=== PATIENT | male | born 1960 | race Caucasian/White ===

== ENCOUNTER 2020-05-22 11:44 | Emergency (ER) | payer MEDICAID, MEDICARE, OTHER ==
[~2020-05-22] VITALS: Ht 175.3 cm; Wt 81.8 kg
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
[2020-05-22 12:24] LABS: BASOPHILS % (AUTO) 1 % (0-10); EOSINOPHILS % (AUTO) 3 % (0-10); HEMATOCRIT 39 % (40-54); HEMOGLOBIN 13.6 G/DL (13.3-17.7); LYMPHOCYTES % (AUTO) 34 % (12-44); MEAN CORPUSCULAR HEMOGLOBIN 31 PG (25-34); MEAN CORPUSCULAR HGB CONC 35 G/DL (32-36); MEAN CORPUSCULAR VOLUME 89 FL (80-99); MEAN PLATELET VOLUME 9.6 FL (7.4-10.4); MONOCYTES % (AUTO) 8 % (0-12); NEUTROPHILS # (AUTO) 3.7 X 10^3 (1.8-7.8); NEUTROPHILS % (AUTO) 53 % (42-75); PLATELET COUNT 200 10^3/uL (130-400)
[2020-05-22 12:25] LABS: BASOPHILS # (AUTO) 0.1 10^3/uL (0.0-0.1); EOSINOPHILS # (AUTO) 0.2 10^3/uL (0.0-0.3); LYMPHOCYTES # (AUTO) 2.4 X 10^3 (1.0-4.0); MONOCYTES # (AUTO) 0.5 X 10^3 (0.0-1.0)
[2020-05-22] MEDS ORDERED: morphine INJ 10 MG/ML 1ML (SYR OR VIAL) IVP STA (12:26)
[2020-05-22] MEDS ORDERED: CATHETER FLUSH 10 ML SYR IV PRN (12:30)
[2020-05-22] MEDS ORDERED: NS 100 ML (IVPB) BAG IV ONE (12:30)
[2020-05-22] MEDS ORDERED: HOLD METFORMIN - RECEIVED CONTRAST 20 ML VIAL IV SCH (12:30)
[2020-05-22] MEDS ORDERED: IOHEXOL 350 MG/ML 100 ML (OMNIPAQUE 350) VIAL IV ONE (12:30)
[2020-05-22] MEDS ORDERED: NS IV 1000 ML 1,000 ML IV SCH (12:30)
[2020-05-22 12:43] LABS: ALANINE AMINOTRANSFERASE 63 U/L (0-55); ALKALINE PHOSPHATASE 68 U/L (40-136); AMYLASE 28 U/L (25-125); BILIRUBIN,TOTAL 0.4 MG/DL (0.1-1.0); BUN/CREATININE RATIO 8; CALCIUM 9.3 MG/DL (8.5-10.1); CARBON DIOXIDE 23 MMOL/L (21-32); CHLORIDE 102 MMOL/L (98-107); CREATININE SERUM 0.77 MG/DL (0.60-1.30); GFR ESTIMATED > 60; GLUCOSE 102 MG/DL (70-105); LIPASE 26 U/L (8-78); POTASSIUM 3.9 MMOL/L (3.6-5.0); SODIUM 137 MMOL/L (135-145); TOTAL PROTEIN 7.1 GM/DL (6.4-8.2)
--- NOTE | 2020-05-22 12:45 | NUR ---
Morphine 4 mg SIVP given for c/o head pain "5"/10.
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
--- NOTE | 2020-05-22 14:00 | NUR ---
Pt resting with eyes closed since Morphine.
--- NOTE | 2020-05-22 14:15 | NUR ---
Entered room to note patient resting with eyes closed. Pt is relaxed and appears in no distress.
--- NOTE | 2020-05-22 14:17 | NUR ---
C-collar removed after Dr López in to re-assess pt post resulting of CT studies. Pt was sat up on side of bed. c/o stiff and soreness generalized. Encouraged pt to void. Rec'd 1 L IV fluids earlier.
--- NOTE | 2020-05-22 14:30 | NUR ---
Pt voided 450 ml concentrated yellow clear urine.
--- NOTE | 2020-05-22 14:33 | NUR ---
Pt is on numerous phone calls now.
[2020-05-22] MEDS ORDERED: ACHD5005 PO (14:37)
[2020-05-22] MEDS ORDERED: CYCL10TA9 PO (14:37)
[2020-05-22 14:40] LABS: BILIRUBIN,URINE NEGATIVE (NEGATIVE); CLARITY,URINE CLEAR; COLOR,URINE YELLOW; GLUCOSE, URINE (UA) NEGATIVE (NEGATIVE); KETONES,URINE NEGATIVE (NEGATIVE); LEUKOCYTE ESTERASE ,URINE NEGATIVE (NEGATIVE); NITRITE,URINE NEGATIVE (NEGATIVE); PH,URINE 6.5 (5-9); PROTEIN,URINE NEGATIVE (NEGATIVE); SQUAMOUS EPITHELIAL CELL,UR 0-2 /HPF
[2020-05-22 15:13] VITALS: BP 141/82
--- NOTE | 2020-05-22 15:13 | NUR ---
Pt discharged at this time after review of home instructions and prescriptions verbalized as understood. Pt is comfortable with discharging to get his prescriptions filled and take as directed. Pt askked if Dr wanted him to wear a C-collar still. Pt advised he was cleared from CT scan. Pt states, "I thought I meet need to wear one for a few more days." Pt was shown the rigidity of the C-collar removed. Pt states, "Nah, that is very uncomfortable to wear." Pt states if he needed to wear a softer C-collar for awhile he would like one. Pt is not issued a soft C-collar.
--- NOTE | 2020-05-22 16:35 | NUR ---
[facility] Pharmacist on duty called to speak with ER staff to communicate the medications this patient gets prescribed and current fills on them. Pt has Tizanidine, Ambien, Xanax, and also Percocet 10/[address] López therefore notified RN to have pharmacist cancel his written scripts.
[2020-05-22] MEDS ORDERED: OXYC-556 (16:37)
[2020-05-22] MEDS ORDERED: TIZA2TAB7 (16:37)
[2020-05-22] MEDS ORDERED: ZOLPIDEM (16:37)
[2020-05-22] MEDS ORDERED: DICL100G31 (16:37)
[2020-05-22] MEDS ORDERED: ALPR1TAB7 (16:37)
[2020-05-22] MEDS ORDERED: SIMV40TA25 (16:37)
== END 2020-05-22 15:13 | disposition home or self-care (01) ==
LOC: ER FS 11:45
DX: S16.1XXA Strain of muscle, fascia and tendon at neck level, initial encounter (principal); S39.012A Strain of muscle, fascia and tendon of lower back, initial encounter; R10.13 Epigastric pain; R40.2410 Glasgow coma scale score 13-15, unspecified time; F17.210 Nicotine dependence, cigarettes, uncomplicated; Z95.5 Presence of coronary angioplasty implant and graft; V89.2XXA Person injured in unspecified motor-vehicle accident, traffic, initial encounter
CPT/HCPCS: 36415; 70450; 71260; 72125; 74177; 80053; 81000; 82150; 83690; 85025

== ENCOUNTER 2020-09-14 17:42 | Inpatient (IN) | payer MEDICARE, MEDICAID ==
[~2020-09-14] VITALS: Ht 172.7 cm; Wt 80.2 kg
[~2020-09-14 17:42] MED LIST: ACHD5005 PO; ALPR1TAB7 PO; CYCL10TA9 PO; DICL100G31; NITRO DRIP 25000 MCG/D5W 250 ML IV ONE; OXYC-556; SIMV40TA25 PO; TIZA-169; ZOLPIDEM; morphine INJ 10 MG/ML 1ML (SYR OR VIAL) ONE
[2020-09-14] MEDS ORDERED: CLOPIDOGREL 300 MG (PLAVIX) TABLET PO ONE ×3 (17:43→18:58)
[2020-09-14] MEDS: NITRO DRIP 25000 MCG/D5W 250 ML IV SCH (17:49)
[2020-09-14] MEDS ORDERED: morphine INJ 10 MG/ML 1ML (SYR OR VIAL) IVP STA (17:50)
[2020-09-14] MEDS ORDERED: fentaNYL INJECTION 100 MCG/2 ML AMP ONE ×3 (17:55→21:58)
[2020-09-14] MEDS ORDERED: NS IV 1000 ML 1,000 ML IV SCH (18:00)
[2020-09-14] MEDS ORDERED: fentaNYL INJECTION 100 MCG/2 ML AMP IVP ONE ×2 (18:00→22:15)
[2020-09-14] MEDS ORDERED: LIDOCAINE 1% INJ 20 ML 20 ML VIAL ONE (18:02)
[2020-09-14] MEDS ORDERED: NITRO DRIP 25000 MCG/D5W 250 ML IV ONE (18:02)
[2020-09-14] MEDS ORDERED: NS IV 1000 ML 1,000 ML ONE (18:02)
[2020-09-14] MEDS ORDERED: HEParin 1000 UNIT/ML (10ML VIAL) FOR BOLUS ONE (18:02)
[2020-09-14] MEDS ORDERED: MIDAZOLAM 5 MG/5 ML (VERSED) VIAL ONE (18:02)
--- NOTE | 2020-09-14 18:02 | ED Chest Pain ---
General Chief Complaint: Chest Pain Stated Complaint: STEMI Nursing Triage Note: ARRIVED VIA EMS FROM MIDNIGHT. CHEST PAIN STARTING LAST NIGHT THAT WENT AWAY AND CAME BACK. EMS CALLED FAMILY THERAPIST FOR A STEMI. PT HAS HAD X13 STENTS. X3 NITOR AND 324MG ASA GIVEN FAMILY THERAPIST. Nursing Sepsis Screen: No Definite Risk Source: patient Exam Limitations: no limitations History of Present Illness Date Seen by Provider: Sep 14, 2020 Time Seen by Provider: 17:59 Initial Comments To ER by EMS from [place] with reports of chest pain that went away and came back. It started yesterday mildly but went away. Came back about an hour ago. History of 13 stents follows with a biology specialist in [place]. He had one nitroglycerin at home and 3 sublingual nitroglycerin in route to the hospital. Aspirin was given as well. The nitroglycerin did not help with his pain. Timing/Duration: changing over time Severity/Quality: moderate Location: central Radiation: no radiation Prior CP/Workup: no prior chest pain ASA po FAMILY THERAPIST: No NTG SL FAMILY THERAPIST: No Allergies and Home Medications Allergies Coded Allergies: No Known Drug Allergies (Unverified , 05/22/20) Home Medications Cyclobenzaprine HCl 10 Mg Tablet, 10 MG PO Q4H PRN for SPASMS Prescribed by: DONAL MEDEL on 05/22/20 1437 Hydrocodone/Acetaminophen 1 Each Tablet, 1 EACH PO Q4H Prescribed by: DONAL MEDEL on 05/22/20 1437 Patient Home Medication List Home Medication List Reviewed: Yes Review of Systems Review of Systems Constitutional: see HPI; No chills EENTM: No Symptoms Reported Cardiovascular: See HPI, Chest Pain Genitourinary: No Symptoms Reported Musculoskeletal: no symptoms reported Skin: no symptoms reported Psychiatric/Neurological: No Symptoms Reported Endocrine: No Symptoms Reported Past Jcikqzi-Vjoads-Tycvnl Hx Patient Social History Type Used: Cigarettes 2nd Hand Smoke Exposure: Yes Recent Infectious Disease Expo: No Past Medical History Surgeries: Yes Coronary Stent Cardiac: Yes (X13 STENTS) Genitourinary: No Gastrointestinal: No Endocrine: No HEENT: No Cancer: No Psychosocial: No Physical Exam Vital Signs Vital Signs - First Documented 09/14/20 09/14/20 17:42 17:56 Temp 37.0 Pulse 104 Resp 16 B/P (MAP) 102/85 (91) Pulse Ox 95 O2 Delivery Room Air O2 Flow Rate 2.00 Capillary Refill : Less Than 3 Seconds Height, Weight, BMI Height: '" Weight: lbs. oz. kg; 23.00 BMI Method: General Appearance: No Apparent Distress, Chronically ill, Other (Moaning, states he has pain. Significant ST elevation in lead II, III, aVF with reciprocal depression in aVL V2 V3. Started on nitroglycerin drip at 5 mcg/min, given 4 mg of morphine. This did not help with his pain so he was given 50 mcg of fentanyl as it was thought to have less effect on his blood pressure. 1 L of IV fluids started. He was given 300 mg of Plavix p.o.) Neck: Full Range of Motion, Normal Inspection Respiratory: No Accessory Muscle Use, No Respiratory Distress Cardiovascular: Regular Rate, Rhythm, Normal Peripheral Pulses Gastrointestinal: Normal Bowel Sounds, Non Tender, Soft Extremity: Normal Capillary Refill, Normal Inspection Neurologic/Psychiatric: Alert, Oriented x3 Skin: Normal Color, Warm/Dry Progress/Results/Core Measures Results/Orders Lab Results Laboratory Tests Test 09/14/20 17:50 09/14/20 17:55 Range/Units My Orders Orders - LIVIA THACKER APRN Chest 1 View, Ap/Pa Only (09/14/20 17:50) Cbc With Automated Diff (09/14/20 17:52) Magnesium (09/14/20 17:52) Ekg Tracing (09/14/20 17:52) Comprehensive Metabolic Panel (09/14/20 17:52) Myoglobin Serum (09/14/20 17:52) Protime With Inr (09/14/20 17:52) Partial Thromboplastin Time (09/14/20 17:52) O2 (09/14/20 17:52) Monitor-Rhythm Ecg Trace Only (09/14/20 17:52) Lipid Panel (09/15/20 06:00) Ed Iv/Invasive Line Start (09/14/20 17:52) BNP (09/14/20 17:52) Troponin I (09/14/20 17:52) Covid 19 Inhouse Test (09/14/20 17:55) Fentanyl Injection (Sublimaze Injection (09/14/20 18:00) Medications Given in ED Current Medications Medications Dose Ordered Sig/Dereje Route Start Time Stop Time Status Last Admin Dose Admin Clopidogrel Bisulfate 300 mg ONCE ONCE PO 09/14/20 18:00 09/14/20 18:01 09/14/20 17:49 300 MG Vital Signs/I&O 09/14/20 09/14/20 17:42 17:56 Temp 37.0 Pulse 104 Resp 16 B/P (MAP) 102/85 (91) Pulse Ox 95 O2 Delivery Room Air Nasal Cannula O2 Flow Rate 2.00 Blood Pressure Mean: 91 Departure Communication (Admissions) Time/Spoke to Admitting Phy: 18:[address] De La Torre of the patient's arrival prior to the patient actually gett ing here as EMS had called. He advised to call in the [employer] team. Impression Primary Impression: STEMI (ST elevation myocardial infarction) Qualified Codes: I21.3 - ST elevation (STEMI) myocardial infarction of unspecified site Disposition: ADMITTED INPATIENT Condition: Stable Admissions Decision to Admit Reason: Admit from ER (General) Decision to Admit/Date: Sep 14, 2020 Time/Decision to Admit Time: 18:02 Departure-Patient Inst. Referrals: NO,LOCAL PHYSICIAN (PCP/Family) Primary Care Physician LIVIA THACKER APRN Sep 14, 2020 18:02
[2020-09-14] MEDS ORDERED: HEParin (CATH LAB) 2,000 ML IV ONE (18:03)
[2020-09-14] MEDS ORDERED: EPTIFIBATIDE BOLUS 20 ML IV ONE (18:04)
--- NOTE | 2020-09-14 18:05 | NUR ---
TALKED WITH DAUGHTER CHEL ON THE PHONE. HELD THE PHONE SO THE PT COULD TALK TO HIS DAUGHTER.
[2020-09-14 18:07] LABS: BASOPHILS # (AUTO) 0.1 10^3/uL (0.0-0.1); BASOPHILS % (AUTO) 1 % (0-10); EOSINOPHILS # (AUTO) 0.3 10^3/uL (0.0-0.3); EOSINOPHILS % (AUTO) 3 % (0-10); HEMATOCRIT 40 % (40-54); HEMOGLOBIN 13.7 g/dL (13.3-17.7); LYMPHOCYTES # (AUTO) 2.9 10^3/uL (1.0-4.0); LYMPHOCYTES % (AUTO) 37 % (12-44); MEAN CORPUSCULAR HEMOGLOBIN 30 pg (25-34); MEAN CORPUSCULAR HGB CONC 34 g/dL (32-36); MEAN CORPUSCULAR VOLUME 89 fL (80-99); MEAN PLATELET VOLUME 9.3 fL (9.0-12.2); MONOCYTES # (AUTO) 0.7 10^3/uL (0.0-1.0); MONOCYTES % (AUTO) 9 % (0-12); NEUTROPHILS # (AUTO) 3.9 10^3/uL (1.8-7.8); NEUTROPHILS % (AUTO) 50 % (42-75); PLATELET COUNT 205 10^3/uL (130-400); WHITE BLOOD COUNT 7.8 10^3/uL (4.3-11.0)
--- NOTE | 2020-09-14 18:07 | Diagnostic Imaging Report ---
INDICATION: Chest pain. No prior examinations are available for comparison. FINDINGS: There is cardiomegaly. There is mild venous congestion. There is no pleural fusion or pneumothorax. There is patchy right basilar infiltrate. Mediastinum is unremarkable. IMPRESSION: Patchy right basilar infiltrate possibly reflecting early pneumonia Cardiomegaly and mild central pulmonary venous congestion. Dictated by: Dictated on workstation # [id number]
[2020-09-14] MEDS ORDERED: ATROPINE INJECTION 1 MG/10 ML SYR (ABBOTT) ONE (18:16)
[2020-09-14 18:22] LABS: ALBUMIN 3.8 GM/DL (3.2-4.5)
[2020-09-14 18:23] LABS: CHLORIDE 108 MMOL/L (98-107); POTASSIUM 3.4 MMOL/L (3.6-5.0); SODIUM 140 MMOL/L (135-145)
[2020-09-14] MEDS ORDERED: DOPamine DRIP 250 ML IV ONE (18:23)
--- NOTE | 2020-09-14 18:24 | NUR ---
DRY HEAT ROOM ATTENDANT REPORTS CONTACTING CERAMIC CAPACITOR PROCESSOR AT [id number]
[2020-09-14 18:25] LABS: GLUCOSE 97 MG/DL (70-105); INR 1.2 (0.8-1.4); PROTHROMBIN TIME PATIENT 15.3 SEC (12.2-14.7)
[2020-09-14 18:26] LABS: CARBON DIOXIDE 25 MMOL/L (21-32)
[2020-09-14 18:27] LABS: BILIRUBIN,TOTAL 0.7 MG/DL (0.1-1.0)
[2020-09-14 18:28] LABS: ALKALINE PHOSPHATASE 65 U/L (40-136)
[2020-09-14 18:29] LABS: GFR ESTIMATED > 60
[2020-09-14 18:30] LABS: BUN/CREATININE RATIO 8
[2020-09-14 18:31] LABS: MAGNESIUM 2.2 MG/DL (1.6-2.4)
[2020-09-14 18:32] LABS: ALANINE AMINOTRANSFERASE 90 U/L (0-55)
[2020-09-14] MEDS ORDERED: ASPIRIN 81 MG CHEW (CHILDREN'S ASA) ONE (18:58)
[2020-09-14] MEDS ORDERED: HEParin (CATH LAB) 1,000 ML IV ONE (19:01)
--- NOTE | 2020-09-14 19:23 | Cardiology History & Physical ---
HPI-Cardiology Cardiology H&P Date of Admission 09/14/20 Primary Care Physician Maris,Local Physician Attending Physician Jerrica Rogers MD, MA [facility] Consulting Physician BEA CC: Chest pain HPI 60 yo man with a h/o CAD and multiple cor stents presented to ER at [facility] with cp that started last night, went away, and then came back this afternoon: midsternal, mod to severe, associated with diaphoresis, radiating t back and shoulders, unrelieved with s/l NTG, similar to the ones with previous heart attacks. Has chronic, slowly progressive, exertional shortness of breath. Denies palp or syncope. Denies leg swelling. Found to have ST elev at the [facility] ER, transferred to this hosp, taken to the laboratory tech, underwent cath and PCI to RCA. Review of Systems-Cardiology Review of Systems Constitutional: malaise, tiredness; No weight loss, No weight gain Eyes: No vision change Ears/Nose/Throat: No ear discharge, No nasal drainage, No recent hearing loss Respiratory: As described under HPI Cardiovascular: As described under HPI Gastrointestinal: No constipation, No diarrhea; nausea; No vomiting Genitourinary: No dysuria, No hematuria, No urine frequency changes Musculoskeletal: back pain (chronic) Skin: No rash Psychiatric/Neurological: No seizure, No focal weakness, No syncope Hematologic: No bleeding abnormalities REB-Xcfnvz-Rhqhjp Hx Patient Social History 2nd Hand Smoke Exposure: Yes Past Medical History PMH As described under Assessment. Family Medical History Family Medical History: Does not report fam h/o early CAD or SCD Allergies and Home Medications Allergies Coded Allergies: No Known Drug Allergies (Unverified , 05/22/20) Home Medications Cyclobenzaprine HCl 10 Mg Tablet, 10 MG PO Q4H PRN for SPASMS Prescribed by: DONAL MEDEL on 05/22/20 1437 Hydrocodone/Acetaminophen 1 Each Tablet, 1 EACH PO Q4H Prescribed by: DONAL MEDEL on 05/22/20 1437 Patient Home Medication List Home Medication List Reviewed: Yes Physical Exam-Cardiology Physical Exam Vital Signs/I&O 09/14/20 09/14/20 09/14/20 09/14/20 17:42 17:49 17:56 18:05 Temp 37.0 Pulse 104 59 56 Resp 16 B/P (MAP) 102/85 (91) 98/79 122/73 Pulse Ox 95 O2 Delivery Room Air Nasal Cannula O2 Flow Rate 2.00 09/14/20 18:10 Pulse 55 Resp 16 B/P (MAP) 122/73 Pulse Ox 97 O2 Delivery Nasal Cannula O2 Flow Rate 2.00 Capillary Refill : Less Than 3 Seconds Constitutional: AAO x 3, well-developed, well-nourished HEENT: EOMI, hearing is well preserved; No xanthelasmas are seen Neck: carotid pulses are 2 + bilaterally, with good upstrokes Respiratory: No accessory muscle use; other (Fair, bilat air entry; prolonged exp phase) Cardiovascular: regular rate-rhythm, S1 and S2, systolic murmur (soft WALT at card base) Gastrointestinal: No tender; soft; No guarding, No rebound; audible bowel sounds Extremities: No clubbing, No cyanosis, No significant edema Neurologic/Psychiatric: oriented x 3, grossly intact, power is 5/5 both on sides Skin: No rash on exposed areas, No ulcerations on exposed areas Data Review Labs Laboratory Tests 09/14/20 17:50: White Blood Count 7.8, Red Blood Count 4.51, Hemoglobin 13.7, Hematocrit 40, Mean Corpuscular Volume 89, Mean Corpuscular Hemoglobin 30, Mean Corpuscular Hemoglobin Concent 34, Red Cell Distribution Width 13.0, Platelet Count 205, Mean Platelet Volume 9.3, Immature Granulocyte % (Auto) 0, Neutrophils (%) (Auto) 50, Lymphocytes (%) (Auto) 37, Monocytes (%) (Auto) 9, Eosinophils (%) (Auto) 3, Basophils (%) (Auto) 1, Neutrophils # (Auto) 3.9, Lymphocytes # (Auto) 2.9, Monocytes # (Auto) 0.7, Eosinophils # (Auto) 0.3, Basophils # (Auto) 0.1, Immature Granulocyte # (Auto) 0.0, Prothrombin Time 15.3H, INR Comment 1.2, Activated Partial Thromboplast Time 27, Sodium Level 140, Potassium Level 3.4L, Chloride Level 108H, Carbon Dioxide Level 25, Anion Gap 7, Blood Urea Nitrogen 6L, Creatinine 0.80, Estimat Glomerular Filtration Rate > 60, BUN/Creatinine Ratio 8, Glucose Level 97, Calcium Level 9.0, Corrected Calcium 9.2, Magnesium Level 2.2, Total Bilirubin 0.7, Aspartate Amino Transf (AST/SGOT) 69H, Alanine Aminotransferase (ALT/SGPT) 90H, Alkaline Phosphatase 65, Myoglobin 21.0, Troponin I < 0.028, B-Type Natriuretic Peptide 11.5, Total Protein 7.0, Albumin 3.8 09/14/20 17:55: Coronavirus 2019 (JEFFY) Negative Laboratory Tests 09/14/20 17:50 A/P-Cardiology Assessment/Admission Diagnosis Ac Inf Wall STEMI CAD. H/o multiple cor stents in the past. Details unknown to the patient Card cath of 09/14/20: 100% of a proximal stented segment of, RCA treated with PTCA and stenting of the distal RCA with Xience Claudia 2.75 x x 28 and a stent gap between the previously stented segments of RCA with Xience Claudia 2.75 x 8 stents. Patent stent in prox and mid LAD. mid to distal LAD with 60-70% stenosis. LCX with mod diffuse diseased. LVEDP 17 mmHg. LVEF 50-55%. Mild hypokinesis of the diaphragmatic wall of the LV Chronic smoker of cigarettes H/o hyperlipidemia H/o anxiety Admission Status: Inpatient Order (span 2 midnights) Reason for Inpatient Admission: Acute ST elevation AK Discussion and Recomendations * PCI to RCA * Advised to quit smoking immediately and completely * DAPT * Statin * Beta-melva * Echo Clinical Quality Measures AMI/AHF: ASA po Prior to arrival: JERRICA Mena MD FACP [facility] Sep 14, 2020 19:23
[2020-09-14] MEDS ORDERED: ACETAMINOPHEN 325 MG TABLET PO PRN (19:45)
[2020-09-14] MEDS ORDERED: PATIENT MAY USE OWN MEDS, ALL PO SCH (19:45)
[2020-09-14] MEDS ORDERED: FAMOTIDINE 20 MG (PEPCID) TABLET PO PRN (19:45)
--- NOTE | 2020-09-14 19:48 | Cardiac Procedure Note-CS/ASA ---
Pre-Procedure Note Pre-Op Procedure Note H&P Reviewed The H&P was reviewed, patient examined and no changes noted. Date H&P Reviewed: Sep 14, 2020 Time H&P Reviewed: 18:15 Conscious Sedation Pre-Proced Time 18:15 ASA Score 3 For ASA 3 and 4: Consider anesthesia and medical clearance. Also, for patients with a history of failed moderate sedation consider anesthesia. Airway Lungs Heart ASA score ASA 1: a normal healthy patient ASA 2: a patient with a mild systemic disease (mid diabetes, controlled hypertension, obesity ASA 3: a patient with a severe systemic disease that limits activity (angina, COPD, prior Myocardial infarction) ASA 4: a patient with an incapacitating disease that is a constant threat to life (CHF, renal failure) ASA 5: a moribund patient not expected to survive 24 hrs. (ruptured aneurysm) ASA 6: a declared brain- patient whose organs are being harvested. For emergent operations, add the letter E after the classification Mallampati Classification Grade 3 Sedation Plan Analgesia, Amnesia, Plan communicated to team members, Discussed options with patient/fam, Discussed risks with patient/fam The patient is an appropriate candidate to undergo the planned procedure, sedation, and anesthesia. The patient immediately re-assessed prior to indication. RAUDEL RODRIGUEZ MD FACP [facility] Sep 14, 2020 19:48
[2020-09-14] MEDS: NS IV 1000 ML 1,000 ML IV SCH (19:56)
[2020-09-14] MEDS ORDERED: meTOprolol TARTRATE 25 MG (LOPRESSOR) TABLET ONE (20:00)
--- NOTE | 2020-09-14 20:00 | NUR ---
THIS RN UPDATED PATIENT'S DAUGHTER, VALENTINE, AT THIS TIME, QUESTIONS ANSWERED AT THIS TIME.
[2020-09-14] MEDS: TEMAZEPAM 7.5 MG CAP (RESTORIL) PO PRN (20:47)
--- NOTE | 2020-09-14 20:55 | CARDIAC CATHETERIZATION ---
DATE OF SERVICE: 09/14/2020 CARDIAC CATHETERIZATION AND CORONARY INTERVENTION REPORT INDICATIONS: The patient is a 60-year-old man who has history of coronary artery disease and who presented with acute ST elevation inferior wall myocardial infarction to the [place] from where he was transferred to this hospital and underwent emergency cardiac catheterization after having provided an informed consent for cardiac catheterization and possible ad hoc coronary intervention. DESCRIPTION OF PROCEDURE: He was brought to the cardiac catheterization laboratory. Right groin was prepared and draped in the usual sterile fashion. Lidocaine 1% was used for local anesthesia. Modified Seldinger technique was used to advance a 6-Polish sheath in right femoral artery. We proceeded with percutaneous intervention of the right coronary artery that is described below. Following completion of the diagnostic and interventional procedure to the right coronary artery, we carried out diagnostic angiography of the left coronary system with 6-Polish JL4 catheter and left heart catheterization and left ventricular angiography with a 6-Polish pigtail catheter. The sheath was sutured in place and he was transferred to the floor for manual sheath removal. PERCUTANEOUS INTERVENTION OF THE RIGHT CORONARY: We used a 6-Polish JR4 guide catheter with side holes. We used a ChoICE floppy wire to cross the complete occlusion in the proximal right coronary and the tip was placed in the distal vessel. We carried out balloon angioplasty first with Emerge 2.0 x 20 mm balloon throughout the entire length of the proximal and mid right coronary artery and part of the distal right coronary artery. We then repeated this procedure with Emerge 3.0 x 30 mm balloon. Subsequently, we stented the distal right coronary artery with Xience Claudia 2.75 x 28 mm stent and the mid right coronary artery where there existed a gap between two old stents, with Xience Claudia 2.75 x 8 mm stent. Subsequent angiography reveals no subsequent residual stenosis and flow throughout the vessel is normal. Within the old stented segments of the right coronary, there is approximately 10% residual stenosis. The flow improved from KHRIS 0 to KHRIS 3 in the distal vessel. The patient tolerated the procedure well. HEMODYNAMICS: Left ventricular end-diastolic pressure following coronary angiography was 17 mmHg. There was no significant pressure gradient on pullback across the aortic valve. Ascending aortic pressure was 128/71 with a mean of 98 mmHg. CORONARY ANGIOGRAPHY: Left main coronary artery shows some coronary calcifications and does not exhibit significant stenosis. Left anterior descending artery has a patent stented segment in the proximal and mid portions with moderate in-stent restenosis. The wxn-zc-udwdbw right coronary artery has stenosis up to 60% to 70%. The left circumflex artery has diffuse moderate disease. Right coronary artery is previously extensively stented. This was completely occluded. Thus, successful balloon angioplasty was carried out and additional stenting was performed in the distal right coronary with Xience Claudia 2.75 x 28 mm and in the mid right coronary (where there was a gap between two previously stented segments), with Xience Claudia 2.75 x 8 mm stents. LEFT VENTRICULAR ANGIOGRAPHY: Left ventricular angiography was carried out in the right anterior oblique projection. There is mild hypokinesis of the diaphragmatic wall of the left ventricle. Left ventricular ejection fraction is approximately 50% to 55%. CONCLUSIONS: 1. Coronary artery disease primarily consisting of proximal occlusion of a dominant right coronary artery that is previously extensively stented in its proximal and mid portions. To this, successful balloon angioplasty was carried out and additional stenting was performed with Xience Claudia 2.75 x 28 mm stent in the distal segment and 2.75 x 8 mm stent in the mid segment of the right coronary. There are patent stents in the left anterior descending, which exhibits moderate in-stent restenosis. The xie-xf-tnlnwi left anterior descending artery has nbsifgxf-ar-mblqjgauku severe disease. Left circumflex artery has moderate diffuse disease. 2. Well preserved global left ventricular systolic function with ejection fraction of 50 to 55%. 3. Hypokinesis of the diaphragmatic wall of the left ventricle. 4. Qmpp-ho-entjgsiy elevation of left ventricular end-diastolic pressure. DISCUSSION AND RECOMMENDATIONS: He has been advised to quit smoking immediately and completely. Dual antiplatelet therapy has been initiated. Beta melva therapy and statin therapy has been initiated. Further recommendation will be based on his hospital course. Job ID: [id number] DocumentID: [id number] Dictated Date: 09/14/2020 19:55:44 Test Driller Date: 09/14/2020 20:54:42 Dictated By: RAUDEL RODRIGUEZ MD, MA, FACP, FACC,
[2020-09-14] MEDS ORDERED: ATROPINE INJ 0.4 MG/ML SDV ONE (21:58)
[2020-09-15 03:45] LABS: BASOPHILS % (AUTO) 0 % (0-10); EOSINOPHILS # (AUTO) 0.1 10^3/uL (0.0-0.3); EOSINOPHILS % (AUTO) 1 % (0-10); HEMATOCRIT 38 % (40-54); HEMOGLOBIN 12.8 g/dL (13.3-17.7); LYMPHOCYTES # (AUTO) 2.2 10^3/uL (1.0-4.0); LYMPHOCYTES % (AUTO) 24 % (12-44); MEAN CORPUSCULAR HEMOGLOBIN 31 pg (25-34); MEAN CORPUSCULAR HGB CONC 34 g/dL (32-36); MEAN CORPUSCULAR VOLUME 90 fL (80-99); MEAN PLATELET VOLUME 9.4 fL (9.0-12.2); MONOCYTES # (AUTO) 0.7 10^3/uL (0.0-1.0); MONOCYTES % (AUTO) 7 % (0-12); NEUTROPHILS % (AUTO) 67 % (42-75); PLATELET COUNT 200 10^3/uL (130-400)
[2020-09-15 03:58] LABS: CHLORIDE 109 MMOL/L (98-107); POTASSIUM 4.1 MMOL/L (3.6-5.0); SODIUM 138 MMOL/L (135-145)
[2020-09-15 04:00] LABS: CALCIUM 8.4 MG/DL (8.5-10.1); TRIGLYCERIDES 68 MG/DL (<150); VLDL CHOLESTEROL 14 MG/DL (5-40)
[2020-09-15 04:01] LABS: GLUCOSE 103 MG/DL (70-105)
[2020-09-15 04:02] LABS: CARBON DIOXIDE 20 MMOL/L (21-32)
[2020-09-15 04:04] LABS: PHOSPHORUS 3.6 MG/DL (2.3-4.7)
[2020-09-15 04:05] LABS: CREATININE SERUM 0.72 MG/DL (0.60-1.30); GFR ESTIMATED > 60
[2020-09-15 04:06] LABS: BUN/CREATININE RATIO 8; CHOLESTEROL 120 MG/DL (< 200)
[2020-09-15 04:07] LABS: HDL CHOLESTEROL 25 MG/DL (40-60); MAGNESIUM 1.9 MG/DL (1.6-2.4)
--- NOTE | 2020-09-15 04:07 | Pulmonary Consultation ---
History of Present Illness History of Present Illness Date Seen by Provider: Sep 15, 2020 Time Seen by Provider: 04:05 Date of Admission History of Present Illness 60yo presented to ED secondary to CP and found to have acute STEMI. Allergies and Home Medications Allergies Coded Allergies: No Known Drug Allergies (Unverified , 05/22/20) Home Medications Cyclobenzaprine HCl 10 Mg Tablet, 10 MG PO Q4H PRN for SPASMS Prescribed by: DONAL MEDEL on 05/22/20 1437 Hydrocodone/Acetaminophen 1 Each Tablet, 1 EACH PO Q4H Prescribed by: DONAL MEDEL on 05/22/20 1437 Past Ebmfwrw-Pquuti-Fqphpa Hx Patient Social History Smoking Status: Current Everyday Smoker Type Used: Cigarettes 2nd Hand Smoke Exposure: Yes Recent Infectious Disease Expo: No Have you traveled recently?: No Substance type: Other Alcohol Use?: No Immunizations Up To Date Date of Influenza Vaccine: Jun 15, 2020 Past Medical History Surgeries: Yes Coronary Stent Cardiac: Yes (X13 STENTS) Genitourinary: No Gastrointestinal: No Endocrine: No HEENT: No Cancer: No Psychosocial: No Review of Systems Time Seen by Provider: 04:06 Sepsis Event Evaluation Height, Weight, BMI Height: '" Weight: lbs. oz. kg; 27.82 BMI Method: Exam Exam Vital Signs Date Time Temp Pulse Resp B/P (MAP) Pulse Ox O2 Delivery O2 Flow Rate FiO2 09/14/20 23:48 37.0 09/14/20 23:00 77 21 117/89 (98) 96 Room Air 09/14/20 22:00 80 112/77 (89) 94 Room Air 09/14/20 21:00 81 17 126/83 (97) 95 Room Air 09/14/20 20:00 87 9 133/87 (102) 96 Room Air 09/14/20 19:25 86 09/14/20 19:22 98 Room Air 09/14/20 19:22 36.4 91 12 140/95 (110) 98 Room Air 09/14/20 18:10 55 16 122/73 97 Nasal Cannula 2.00 09/14/20 18:05 56 122/73 09/14/20 17:56 Nasal Cannula 2.00 09/14/20 17:49 59 98/79 09/14/20 17:42 37.0 104 16 102/85 (91) 95 Room Air I & O 09/15/20 06:59 Intake Total 50 ml Output Total 0 ml Balance 50 ml Height & Weight Height: '" Weight: lbs. oz. kg; 27.82 BMI Method: General Appearance: No Apparent Distress, Chronically ill, Other (Moaning, states he has pain. Significant ST elevation in lead II, III, aVF with reciproc al depression in aVL V2 V3. Started on nitroglycerin drip at 5 mcg/min, given 4 mg of morphine. This did not help with his pain so he was given 50 mcg of fentanyl as it was thought to have less effect on his blood pressure. 1 L of IV fluids started. He was given 300 mg of Plavix p.o.) Neck: Full Range of Motion, Normal Inspection Respiratory: No Accessory Muscle Use, No Respiratory Distress Cardiovascular: Regular Rate, Rhythm, Normal Peripheral Pulses Capillary Refill: Less Than 3 Seconds Extremity: Normal Capillary Refill, Normal Inspection Neurologic/Psychiatric: Alert, Oriented x3 Skin: Normal Color, Warm/Dry Results Lab Laboratory Tests 09/14/20 17:50 09/15/20 03:32 Assessment/Plan Assessment/Plan Acute StEMI s/p cath with stents placed x 2 to RCA -Cardiology following -Currently on bedrest -IVF per post cath order set -Currently on RA CAD Anemia -Monitor KENNY SINGLETON DO Sep 15, 2020 04:07
[2020-09-15] MEDS: NS IV 1000 ML 1,000 ML IV SCH (04:45)
--- NOTE | 2020-09-15 07:05 | NUR ---
THIS RN GAVE UPDATE TO DR. RODRIGUEZ AT THIS TIME. NOTIFIED HIM OF THE FOLLOWING: THIS RN PULLED SHEATH AT 2220, 20 MINUTES MANUAL PRESSURE HELD AT THIS TIME. 2240 MANUAL PRESSURE COMPLETED, 4 HOUR BEDREST STARTED AND 10LB SANDBAG PLACED TO RIGHT GROIN. THIS RN CHECKED PATIENT SITE AGAIN AT 2300 AND 4X4 PRESSURE DRESSING SATURATED WITH BLOOD, MANUAL PRESSURE HELD IMMEDIATELY FOR 20 MINUTES. AT 2320 MANUAL PRESSURE COMPLETED, 10LB SANDBAG APPLIED TO RIGHT GROIN AND BEDREST RESTARTED. 0400- PATIENT BEDREST COMPLETE, SITE SOFT AND ASYMPTOMATIC, DRESSING C/D/I, VITALS STABLE. PATIENT UP TO CHAIR AT THIS TIME. 0700- PATIENT SITTING IN CHAIR AT THIS TIME, RIGHT GROIN ASSESSED, SITE C/D/I AND ASYMPTOMATIC.
[2020-09-15] MEDS: CLOPIDOGREL 75 MG (PLAVIX) TABLET PO SCH (08:16)
[2020-09-15] MEDS: ASPIRIN 81 MG CHEW (CHILDREN'S ASA) PO SCH (08:16)
--- NOTE | 2020-09-15 09:52 | Progress Note - Cardiology ---
Cardiology SOAP Progress Note Subjective: Sitting up in bed No c/o CP, SOB, palpitations, syncope, near syncope No c/o groin discomfort Objective: I&O/Vital Signs 09/16/20 09/16/20 09/16/20 09/16/20 00:00 01:00 04:03 08:00 Temp 36.5 35.5 35.7 Pulse 57 56 67 71 Resp 17 16 18 B/P (MAP) 110/65 (80) 128/66 (86) 113/71 (85) Pulse Ox 96 97 97 O2 Delivery Room Air Room Air Room Air 09/16/20 09:00 O2 Delivery Room Air 09/16/20 00:00 Intake Total 1980 ml Balance 1980 ml Side: right Groin site without hematoma: Yes Condition: DP/PT pulses palpable Bruising: mild bruising Constitutional: AAO x 3, well-developed, well-nourished Respiratory: No accessory muscle use; other (Fair, bilat air entry; prolonged exp phase) Cardiovascular: regular rate-rhythm, S1 and S2, systolic murmur (soft WALT at card base) Gastrointestional: No tender; soft; No guarding, No rebound; audible bowel sounds Extremities: No clubbing, No cyanosis, No significant edema Neurologic/Psychiatric: oriented x 3, grossly intact, power is 5/5 both on sides Skin: No rash on exposed areas, No ulcerations on exposed areas Results/Procedures: Labs Laboratory Tests 09/16/20 04:35: White Blood Count 6.8, Red Blood Count 4.13L, Hemoglobin 12.7L, Hematocrit 37L, Mean Corpuscular Volume 90, Mean Corpuscular Hemoglobin 31, Mean Corpuscular Hemoglobin Concent 34, Red Cell Distribution Width 13.2, Platelet Count 175, Mean Platelet Volume 9.6, Immature Granulocyte % (Auto) 0, Neutrophils (%) (Auto) 54, Lymphocytes (%) (Auto) 31, Monocytes (%) (Auto) 9, Eosinophils (%) (Auto) 4, Basophils (%) (Auto) 1, Neutrophils # (Auto) 3.7, Lymphocytes # (Auto) 2.1, Monocytes # (Auto) 0.6, Eosinophils # (Auto) 0.3, Basophils # (Auto) 0.1, Immature Granulocyte # (Auto) 0.0, Sodium Level 139, Potassium Level 3.9, Chloride Level 109H, Carbon Dioxide Level 22, Anion Gap 8, Blood Urea Nitrogen 6L, Creatinine 0.78, Estimat Glomerular Filtration Rate > 60, BUN/Creatinine Ratio 8, Glucose Level 84, Calcium Level 8.7, Phosphorus Level 2.5, Magnesium Level 2.0 A/P: Assessment: Ac Inf Wall STEMI CAD. H/o multiple cor stents in the past. Details unknown to the patient Card cath of 09/14/20: 100% of a proximal stented segment of, RCA treated with PTCA and stenting of the distal RCA with Xience Claudia 2.75 x x 28 and a stent gap between the previously stented segments of RCA with Xience Claudia 2.75 x 8 stents. Patent stent in prox and mid LAD. mid to distal LAD with 60-70% stenosis. LCX with mod diffuse diseased. LVEDP 17 mmHg. LVEF 50-55%. Mild hypokinesis of the diaphragmatic wall of the LV Chronic smoker of cigarettes H/o hyperlipidemia H/o anxiety Plan: * S/P successful PCI to RCA on 09-14-20 * Advised to quit smoking immediately and completely * DAPT * Statin * Beta-melva * Echo pending * Ambulate today * Likely discharge tomorrow Clinical Quality Measures AMI/AHF: ASA po Prior to arrival: MARIELLA Rodriguez Sep 15, 2020 09:52
[2020-09-15] MEDS ORDERED: ZOLP10TA PO (10:54)
[2020-09-15] MEDS ORDERED: SEMA0.25 SC (10:54)
[2020-09-15] MEDS ORDERED: OXYC-464 PO (10:54)
[2020-09-15] MEDS ORDERED: OMEP40CA27 PO (10:54)
--- NOTE | 2020-09-15 10:58 | NUR ---
SPOKE WITH THE PT, WENT THRU THE EXT MED HISTORY AND CALLED [facility] TO COMPLETE THE MED REC GABAPENTIN 100MG WAS FILLED 09-10-2019 BUT PT HAS NOT PICKED UP YET ACCORDING TO [facility] THE DIRECTIONS FOR OZEMPIC ARE 0.5MG WEEKLY PT DENIES TAKING ANY OTC MEDS
--- NOTE | 2020-09-15 11:44 | NUR ---
Patient transferred from ICU. ASSUMED CARE @1105 Addendum: 09/15/20 at 1226 by GERARDO LOPEZ RN RECEIVED REPORT FROM CHANDANA LILLY
--- NOTE | 2020-09-15 13:47 | NUR ---
"RD ASSESSMENT PMHx: CAD; HLD; PT INTERACTION: Pt was awake and pleasant during nutrition consult for MST score. Pt states current appetite is good. Note pt had refused 1 meal, and had PO intake of 75% x1meal, per chart review. Pt states following a regular diet at home, and has no issues with chewing/swallowing food. Pt states no recent issues with n/v/c/d and that his last BM was 09/14. Note pt not currently on bowel regimen per chart review. Pt states recent 8-10# wt loss, but was unsure of timeframe. Note recent 3# wt gain x4mon, per chart review. Upon visual assessment, pt appears to be adequately nourished with no visible signs of muscle/fat wasting and a BMI of 27.8 (Overweight BMI for age). Given wt hx, PO intake, and visual assessment, pt does not meet criteria for malnutrition per ASPEN guidelines. Est. kcal needs: 2569-3442 kcal | 20-25 kcal/kg Est. Pro needs: 66-83 g Pro | 0.8-1.0 g Pro/kg PES STATEMENT: Given current appetite and PO intake, no nutrition diagnosis at this time (NO-1.1). INTERVENTION: Continue with current diet order of CHO 60g/m 1snack diet. Will continue to follow and reassess as pt needs, intake, and status change. Jackie MANSFIELD, MS RD LD [phone] cell"
[2020-09-15 16:00] VITALS: BP 100/58
--- NOTE | 2020-09-15 18:02 | Progress Note - Cardiology ---
Cardiology SOAP Progress Note Subjective: He states he feels well No cp or palp or syncope No shortness of breath at rest No n/v Objective: I&O/Vital Signs 09/15/20 09/15/20 09/15/20 09/15/20 06:51 07:00 07:54 08:00 Temp 36.3 Pulse 77 63 62 B/P (MAP) 113/64 (80) 109/67 (81) Pulse Ox 97 96 O2 Delivery Room Air Room Air 09/15/20 09/15/20 09/15/20 09/15/20 09:00 09:00 10:00 12:59 Pulse 55 64 71 B/P (MAP) 101/75 (84) 95/69 (78) Pulse Ox 96 95 95 O2 Delivery Room Air Room Air Room Air 09/15/20 16:00 Temp 37.0 Pulse 60 Resp 20 B/P (MAP) 100/58 (72) Pulse Ox 97 O2 Delivery Room Air 09/15/20 00:00 Intake Total 50 ml Output Total 0 ml Balance 50 ml Side: right Groin site without hematoma: Yes Condition: DP/PT pulses palpable Bruising: mild bruising Constitutional: AAO x 3, well-developed, well-nourished Respiratory: No accessory muscle use; other (Fair, bilat air entry; prolonged exp phase) Cardiovascular: regular rate-rhythm, S1 and S2, systolic murmur (soft WALT at card base) Gastrointestional: No tender; soft; No guarding, No rebound; audible bowel sounds Extremities: No clubbing, No cyanosis, No significant edema Neurologic/Psychiatric: oriented x 3, grossly intact, power is 5/5 both on sides Skin: No rash on exposed areas, No ulcerations on exposed areas Results/Procedures: Labs Laboratory Tests 09/14/20 20:50: Activated Partial Thromboplast Time 88H 09/15/20 03:32: White Blood Count 9.0, Red Blood Count 4.19L, Hemoglobin 12.8L, Hematocrit 38L, Mean Corpuscular Volume 90, Mean Corpuscular Hemoglobin 31, Mean Corpuscular Hemoglobin Concent 34, Red Cell Distribution Width 13.1, Platelet Count 200, Mean Platelet Volume 9.4, Immature Granulocyte % (Auto) 0, Neutrophils (%) (Auto) 67, Lymphocytes (%) (Auto) 24, Monocytes (%) (Auto) 7, Eosinophils (%) (Auto) 1, Basophils (%) (Auto) 0, Neutrophils # (Auto) 6.0, Lymphocytes # (Auto) 2.2, Monocytes # (Auto) 0.7, Eosinophils # (Auto) 0.1, Basophils # (Auto) 0.0, Immature Granulocyte # (Auto) 0.0, Sodium Level 138, Potassium Level 4.1, Chloride Level 109H, Carbon Dioxide Level 20L, Anion Gap 9, Blood Urea Nitrogen 6L, Creatinine 0.72, Estimat Glomerular Filtration Rate > 60, BUN/Creatinine Ratio 8, Glucose Level 103, Calcium Level 8.4L, Phosphorus Level 3.6, Magnesium Level 1.9, Triglycerides Level 68, Cholesterol Level 120, LDL Cholesterol Direct 87, VLDL Cholesterol 14, HDL Cholesterol 25L Laboratory Tests 09/14/20 17:50 09/15/20 03:32 A/P: Assessment: CAD: - H/o multiple cor stents in the past. Details unknown to the patient - Ac Inf Wall STEMI on 09/14/20 - Card cath of 09/14/20: 100% of a proximal stented segment of, RCA treated with PTCA and stenting of the distal RCA with Xience Claudia 2.75 x x 28 and a stent gap between the previously stented segments of RCA with Xience Claudia 2.75 x 8 stents. Patent stent in prox and mid LAD. mid to distal LAD with 60-70% s tenosis. LCX with mod diffuse diseased. LVEDP 17 mmHg. LVEF 50-55%. Mild hypokinesis of the diaphragmatic wall of the LV Chronic smoker of cigarettes H/o hyperlipidemia H/o anxiety Plan: * S/P successful PCI to RCA on 09-14-20 * Advised to quit smoking immediately and completely * DAPT * Statin * Beta-melva * Ambulate today * Likely discharge tomorrow Clinical Quality Measures AMI/AHF: ASA po Prior to arrival: RAUDEL Mena MD FACP [facility] Sep 15, 2020 18:02
[2020-09-15] MEDS: NITRO DRIP 25000 MCG/D5W 250 ML IV SCH (18:16)
[2020-09-15 20:00] VITALS: BP 95/50
[2020-09-15] MEDS: TEMAZEPAM 7.5 MG CAP (RESTORIL) PO PRN (20:32)
[2020-09-16] VITALS: BP 110/65
[2020-09-16 04:03] VITALS: BP 128/66
[2020-09-16 05:18] LABS: BASOPHILS # (AUTO) 0.1 10^3/uL (0.0-0.1); BASOPHILS % (AUTO) 1 % (0-10); EOSINOPHILS # (AUTO) 0.3 10^3/uL (0.0-0.3); EOSINOPHILS % (AUTO) 4 % (0-10); HEMATOCRIT 37 % (40-54); HEMOGLOBIN 12.7 g/dL (13.3-17.7); LYMPHOCYTES # (AUTO) 2.1 10^3/uL (1.0-4.0); LYMPHOCYTES % (AUTO) 31 % (12-44); MEAN CORPUSCULAR HEMOGLOBIN 31 pg (25-34); MEAN CORPUSCULAR HGB CONC 34 g/dL (32-36); MEAN CORPUSCULAR VOLUME 90 fL (80-99); MEAN PLATELET VOLUME 9.6 fL (9.0-12.2); MONOCYTES # (AUTO) 0.6 10^3/uL (0.0-1.0); MONOCYTES % (AUTO) 9 % (0-12); NEUTROPHILS # (AUTO) 3.7 10^3/uL (1.8-7.8); NEUTROPHILS % (AUTO) 54 % (42-75); PLATELET COUNT 175 10^3/uL (130-400); WHITE BLOOD COUNT 6.8 10^3/uL (4.3-11.0)
[2020-09-16 05:39] LABS: CHLORIDE 109 MMOL/L (98-107); POTASSIUM 3.9 MMOL/L (3.6-5.0); SODIUM 139 MMOL/L (135-145)
[2020-09-16 05:40] LABS: CALCIUM 8.7 MG/DL (8.5-10.1)
[2020-09-16 05:41] LABS: GLUCOSE 84 MG/DL (70-105)
[2020-09-16 05:42] LABS: CARBON DIOXIDE 22 MMOL/L (21-32)
[2020-09-16 05:44] LABS: PHOSPHORUS 2.5 MG/DL (2.3-4.7)
[2020-09-16 05:45] LABS: CREATININE SERUM 0.78 MG/DL (0.60-1.30); GFR ESTIMATED > 60
[2020-09-16 05:46] LABS: BUN/CREATININE RATIO 8
[2020-09-16] MEDS: ASPIRIN 81 MG CHEW (CHILDREN'S ASA) PO SCH (07:55)
[2020-09-16] MEDS: CLOPIDOGREL 75 MG (PLAVIX) TABLET PO SCH (07:55)
[2020-09-16 08:00] VITALS: BP 113/71
--- NOTE | 2020-09-16 10:28 | Progress Note - Cardiology ---
Cardiology SOAP Progress Note Subjective: Up ambulating in the room States he wants to go home today No c/o CP, palpitations, syncope or near syncope No c/o right groin pain Objective: I&O/Vital Signs Side: right Groin site without hematoma: Yes Condition: DP/PT pulses palpable Bruising: mild bruising Constitutional: AAO x 3, well-developed, well-nourished Respiratory: No accessory muscle use; other (Fair, bilat air entry; prolonged exp phase) Cardiovascular: regular rate-rhythm, S1 and S2, systolic murmur (soft WALT at card base) Gastrointestional: No tender; soft; No guarding, No rebound; audible bowel sounds Extremities: No clubbing, No cyanosis, No significant edema Neurologic/Psychiatric: oriented x 3, grossly intact, power is 5/5 both on sides Skin: No rash on exposed areas, No ulcerations on exposed areas Results/Procedures: Labs A/P: Assessment: CAD: - H/o multiple cor stents in the past. Details unknown to the patient - Ac Inf Wall STEMI on 09/14/20 - Card cath of 09/14/20: 100% of a proximal stented segment of, RCA treated with PTCA and stenting of the distal RCA with Xience Claudia 2.75 x x 28 and a stent gap between the previously stented segments of RCA with Xience Claudia 2.75 x 8 stents. Patent stent in prox and mid LAD. mid to distal LAD with 60-70% stenos is. LCX with mod diffuse diseased. LVEDP 17 mmHg. LVEF 50-55%. Mild hypokinesis of the diaphragmatic wall of the LV Chronic smoker of cigarettes H/o hyperlipidemia H/o anxiety Plan: * S/P successful PCI to RCA on 09-14-20 * Advised to quit smoking immediately and completely * DAPT * Statin * Beta-melva * Discharge home today * Out pt f/u Clinical Quality Measures AMI/AHF: ASA po Prior to arrival: MARIELLA Rodriguez Sep 16, 2020 10:28
[2020-09-16] MEDS ORDERED: ATOR40TA PO (10:32)
[2020-09-16] MEDS ORDERED: CLOP75TA28 PO (10:32)
[2020-09-16] MEDS ORDERED: ASPI-999 PO (10:32)
[2020-09-16] MEDS ORDERED: MTP25TSR PO (10:32)
--- NOTE | 2020-09-16 10:33 | Discharge Inst-Cardiology ---
Discharge Inst-Cardiac Discharge Medications New Medications: Aspirin (Aspirin) 81 Mg Tab.chew 81 MG PO DAILY, #90 TAB 3 Refills Atorvastatin Calcium (Lipitor) 40 Mg Tablet 40 MG PO HS, #90 TAB 3 Refills Clopidogrel Bisulfate (Clopidogrel) 75 Mg Tablet 75 MG PO DAILY, #90 TAB 3 Refills Metoprolol Succinate (Metoprolol Succinate) 25 Mg Tab.er.24h 25 MG PO DAILY, #90 TAB 3 Refills Continued Medications: Alprazolam (Alprazolam) 1 Mg Tablet 1 MG PO BID PRN for ANXIETY, TAB Omeprazole (Omeprazole) 40 Mg Capsule.dr 40 MG PO DAILY PRN for HEARTBURN, CAP Oxycodone HCl/Acetaminophen (Oxycodon-Acetaminophen 7.5-325) 1 Each Tablet 1 EA PO TID PRN for PAIN-MODERATE (5-7), TAB Semaglutide (Ozempic) 0.25 Mg/0.2 Ml Pen.injctr 0.5 MG SC THUR, MG Zolpidem Tartrate (Ambien) 10 Mg Tablet 10 MG PO HS PRN for SLEEP, TAB Discontinued Medications: Simvastatin (Simvastatin) 40 Mg Tablet 40 MG PO HS, TAB New, Converted or Re-Newed RX: Transmitted to Pharmacy Patient Instructions Patient Instructions: Please schedule follow up appointment to see Dr. Rogers in 2 weeks MARIELLA LOPEZ Sep 16, 2020 10:33
[2020-09-16 11:24] VITALS: BP 113/71
--- NOTE | 2020-09-16 15:52 | Physician Query Clarification ---
"Physician Query-General Query to Physician: The medical record reflects the following clinical scenario: History/Risk factors: CAD with multiple coronary stents Clinical Findings: Right coronary artery is previously extensively stented. This was completely occluded. Thus, successful balloon angioplasty was carried out and additional stenting was performed in the distal right coronary, STEMI per EKG Treatment: Ballooning and stenting as above, Dual anti platelet therapy Question: What condition best reflects the above clinical scenario? Please document response in the Progress notes or Discharge Summary. 1. Inf wall STEMI due to Restenosis of Coronary stent(s) 2. Inf wall STEMI (as currently documented) 3. Other, with explanation of clinical findings 4. Clinically undetermined, no explanation for clinical findings Please remember a lack of response to the above will prompt a phone page by CDI/coding staff. In responding to this query, please exercise your independent professional judgment. The purpose of this communication is to more accurately reflect the complexity of your patients condition. The fact that a question is asked does not imply that any particular answer is desired or expected. Thank you for timely response to this clarification. Zayra Morgan, MSN, RN RN Specialist-Clinical Doc Improvement CD -Health Info Mgmt Operations [address] [facility] t: [phone] | f: [phone] If you are unable to reach me at my extension, I may be working from home. Please contact me at [phone] PHYSICIAN RESPONSE: Based on the clinical findings in the record, please respond to the query above on this document as an addendum. Physician Response: Physician Response Number 2 If you have questions please contact: Scientific Editor: Ext: Thank you for your time and cooperation. Clinical Seasonal Greenery Bundler/Scientific Editor This is a permanent part of the medical record ZAYRA MORGAN Sep 16, 2020 15:52 RAUDEL RODRIGUEZ MD [facility] Sep 21, 2020 10:11"
--- NOTE | 2020-09-16 17:35 | Progress Note - Cardiology ---
Cardiology SOAP Progress Note Subjective: No cp or palp or syncope or shortness of breath No groin discomfort or leg discoloration or leg discomfort No focal weakness No n/v Objective: I&O/Vital Signs 09/16/20 09/16/20 09/16/20 08:00 09:00 11:24 Temp 35.7 35.7 Pulse 71 71 Resp 18 18 B/P (MAP) 113/71 (85) 113/71 Pulse Ox 97 97 O2 Delivery Room Air Room Air Room Air O2 Flow Rate 2.00 09/16/20 00:00 Intake Total 1980 ml Balance 1980 ml Side: right Groin site without hematoma: Yes Condition: DP/PT pulses palpable Bruising: mild bruising Constitutional: AAO x 3, well-developed, well-nourished Respiratory: No accessory muscle use; other (Fair, bilat air entry; prolonged exp phase) Cardiovascular: regular rate-rhythm, S1 and S2, systolic murmur (soft WALT at card base) Gastrointestional: No tender; soft; No guarding, No rebound; audible bowel sounds Extremities: No clubbing, No cyanosis, No significant edema Neurologic/Psychiatric: oriented x 3, grossly intact, power is 5/5 both on sides Skin: No rash on exposed areas, No ulcerations on exposed areas Results/Procedures: Labs Laboratory Tests 09/16/20 04:35: White Blood Count 6.8, Red Blood Count 4.13L, Hemoglobin 12.7L, Hematocrit 37L, Mean Corpuscular Volume 90, Mean Corpuscular Hemoglobin 31, Mean Corpuscular Hemoglobin Concent 34, Red Cell Distribution Width 13.2, Platelet Count 175, Mean Platelet Volume 9.6, Immature Granulocyte % (Auto) 0, Neutrophils (%) (Auto) 54, Lymphocytes (%) (Auto) 31, Monocytes (%) (Auto) 9, Eosinophils (%) (Auto) 4, Basophils (%) (Auto) 1, Neutrophils # (Auto) 3.7, Lymphocytes # (Auto) 2.1, Monocytes # (Auto) 0.6, Eosinophils # (Auto) 0.3, Basophils # (Auto) 0.1, Immature Granulocyte # (Auto) 0.0, Sodium Level 139, Potassium Level 3.9, Chloride Level 109H, Carbon Dioxide Level 22, Anion Gap 8, Blood Urea Nitrogen 6L, Creatinine 0.78, Estimat Glomerular Filtration Rate > 60, BUN/Creatinine Ratio 8, Glucose Level 84, Calcium Level 8.7, Phosphorus Level 2.5, Magnesium Level 2.0 Laboratory Tests 09/14/20 17:50 09/15/20 03:32 09/16/20 04:35 A/P: Assessment: CAD: - H/o multiple cor stents in the past. Details unknown to the patient - Ac Inf Wall STEMI on 09/14/20 - Card cath of 09/14/20: 100% of a proximal stented segment of, RCA treated with PTCA and stenting of the distal RCA with Xience Claudia 2.75 x x 28 and a stent gap between the previously stented segments of RCA with Xience Claudia 2.75 x 8 stents. Patent stent in prox and mid LAD. mid to distal LAD with 60-70% stenosis. LCX with mod diffuse diseased. LVEDP 17 mmHg. LVEF 50-55%. Mild hypokinesis of the diaphragmatic wall of the LV Chronic smoker of cigarettes H/o hyperlipidemia H/o anxiety Plan: * S/P successful PCI to RCA on 09-14-20 * Advised to quit smoking immediately and completely * DAPT * Statin * Beta-melva * Discharge home today * Out pt f/u Clinical Quality Measures AMI/AHF: ASA po Prior to arrival: RAUDEL Mena MD FACP FAC [facility] Sep 16, 2020 17:35
== END 2020-09-16 11:26 | disposition home or self-care (01) | DRG 247 ==
LOC: EDUNIT# 17:42 → ER 17:44 → CATH 18:09 → UNDOADMIN 19:32 → ICU 19:32 → 4TH 09-15 11:05
PROVIDERS: ADMIT Internal Medicine Cardiovascular Disease; ATTEND Internal Medicine Cardiovascular Disease
PROC: 027035Z Dilation of Coronary Artery, One Artery with Two Drug-eluting Intraluminal Devices, Percutaneous Approach (ICD-10-PCS; principal; 2020-09-14)
PROC: 4A023N7 Measurement of Cardiac Sampling and Pressure, Left Heart, Percutaneous Approach (ICD-10-PCS; 2020-09-14)
PROC: B2101ZZ Fluoroscopy of Single Coronary Artery using Low Osmolar Contrast (ICD-10-PCS; 2020-09-14)
PROC: B2151ZZ Fluoroscopy of Left Heart using Low Osmolar Contrast (ICD-10-PCS; 2020-09-14)
DX: I21.19 ST elevation (STEMI) myocardial infarction involving other coronary artery of inferior wall (principal); T82.855D Stenosis of coronary artery stent, subsequent encounter; I25.10 Atherosclerotic heart disease of native coronary artery without angina pectoris; Z95.5 Presence of coronary angioplasty implant and graft; F17.210 Nicotine dependence, cigarettes, uncomplicated; E78.5 Hyperlipidemia, unspecified; D64.9 Anemia, unspecified; Z20.822 Contact with and (suspected) exposure to COVID-19
CPT/HCPCS: 36415; 71045; 80048; 80053; 80061; 83735; 83874; 83880; 84100; 84484; 85025; 85610; 85730; 87635; 93005; 93041; 93458

== ENCOUNTER 2020-12-19 21:21 | Emergency (ER) | payer MEDICARE, MEDICAID ==
[~2020-12-19 21:21] MED LIST changes: +ASPI-999 PO; +ATOR40TA PO; +CLOP75TA28 PO; +MTP25TSR PO; -NITRO DRIP 25000 MCG/D5W 250 ML IV ONE; +OMEP40CA27 PO; +OXYC-464 PO; +SEMA0.25 SC; +ZOLP10TA PO; -morphine INJ 10 MG/ML 1ML (SYR OR VIAL) ONE
--- NOTE | 2020-12-19 21:26 | ED Chest Pain ---
General Stated Complaint: CHEST PAIN History of Present Illness Date Seen by Provider: Dec 19, 2020 Time Seen by Provider: 21:23 Initial Comments 60-year-old male presents with a brief episode of epigastric/lower substernal chest pain. Patient reports that happened right after he swallowed a Lipitor and thinks the pill discussed take. Lasted for approximately 3 to 5 minutes and then went away. He has no chest pain at this time. He has no other systemic complaints that were associated with it. Patient comes in for cardiac evaluation just because he has a history of 9 prior heart attacks with 17 stents with his last one being a couple months ago. Patient just wanted to ensure that there was not another cardiac event. Allergies and Home Medications Allergies Coded Allergies: No Known Drug Allergies (Unverified , 05/22/20) Home Medications Alprazolam 1 Mg Tablet, 1 MG PO BID PRN for ANXIETY, (Reported) Aspirin 81 Mg Tab.chew, 81 MG PO DAILY Prescribed by: MARIELLA LOPEZ on 09/16/20 1032 Atorvastatin Calcium 40 Mg Tablet, 40 MG PO HS Prescribed by: MARIELLA LOPEZ on 09/16/20 1032 Clopidogrel Bisulfate 75 Mg Tablet, 75 MG PO DAILY Prescribed by: MARIELLA LOPEZ on 09/16/20 1032 Metoprolol Succinate 25 Mg Tab.er.24h, 25 MG PO DAILY Prescribed by: MARIELLA LOPEZ on 09/16/20 1032 Omeprazole 40 Mg Capsule.dr, 40 MG PO DAILY PRN for HEARTBURN, (Reported) Oxycodone HCl/Acetaminophen 1 Each Tablet, 1 EA PO TID PRN for PAIN-MODERATE (5- 7), (Reported) Semaglutide 0.25 Mg/0.2 Ml Pen.injctr, 0.5 MG SC THUR, (Reported) Zolpidem Tartrate 10 Mg Tablet, 10 MG PO HS PRN for SLEEP, (Reported) Patient Home Medication List Home Medication List Reviewed: Yes Review of Systems Review of Systems Constitutional: No chills, No diaphoresis, No fever Respiratory: Denies Cough, Denies Shortness of Air Cardiovascular: See HPI; Denies Edema, Denies Lightheadedness Gastrointestinal: See HPI Musculoskeletal: no symptoms reported Skin: no symptoms reported Psychiatric/Neurological: No Symptoms Reported Endocrine: No Symptoms Reported Past Scnrcor-Qjsmdm-Gzaupa Hx Past Med/Social Hx: Reviewed Nursing Past Med/Soc Hx Physical Exam Vital Signs Vital Signs - First Documented 12/19/20 21:22 Temp 36.8 Pulse 66 Resp 18 B/P (MAP) 111/62 (78) Pulse Ox 97 O2 Delivery Room Air Capillary Refill : Height, Weight, BMI Height: '" Weight: lbs. oz. kg; BMI Method: General Appearance: No Apparent Distress, WD/WN Respiratory: Lungs Clear, Normal Breath Sounds Cardiovascular: Regular Rate, Rhythm, No Edema Gastrointestinal: Soft Extremity: Normal Capillary Refill, Normal Inspection Neurologic/Psychiatric: Alert, Oriented x3, No Motor/Sensory Deficits, maintenance porter II- XII Norm as Tested Skin: Normal Color, Warm/Dry Progress/Results/Core Measures Results/Orders Lab Results Laboratory Tests Test 12/19/20 21:35 Range/Units White Blood Count 7.2 4.3-11.0 10^3/uL Red Blood Count 4.40 4.35-5.85 10^6/uL Hemoglobin 13.5 13.3-17.7 G/DL Hematocrit 39 L 40-54 % Mean Corpuscular Volume 88 80-99 FL Mean Corpuscular Hemoglobin 31 25-34 PG Mean Corpuscular Hemoglobin Concent 35 32-36 G/DL Red Cell Distribution Width 13.2 10.0-14.5 % Platelet Count 198 130-400 10^3/uL Mean Platelet Volume 9.5 7.4-10.4 FL Immature Granulocyte % (Auto) 0 % Neutrophils (%) (Auto) 54 42-75 % Lymphocytes (%) (Auto) 34 12-44 % Monocytes (%) (Auto) 7 0-12 % Eosinophils (%) (Auto) 4 0-10 % Basophils (%) (Auto) 1 0-10 % Neutrophils # (Auto) 3.9 1.8-7.8 X 10^3 Lymphocytes # (Auto) 2.5 1.0-4.0 X 10^3 Monocytes # (Auto) 0.5 0.0-1.0 X 10^3 Eosinophils # (Auto) 0.3 0.0-0.3 10^3/uL Basophils # (Auto) 0.1 0.0-0.1 10^3/uL Immature Granulocyte # (Auto) 0.0 0.0-0.1 10^3/uL Carbon Dioxide Level 23 21-32 MMOL/L Blood Urea Nitrogen 5 L 7-18 MG/DL Creatinine 0.78 0.60-1.30 MG/DL Estimat Glomerular Filtration Rate > 60 BUN/Creatinine Ratio 6 Glucose Level 150 H 70-105 MG/DL Calcium Level 9.1 8.5-10.1 MG/DL Corrected Calcium 9.2 8.5-10.1 MG/DL Total Bilirubin 0.6 0.1-1.0 MG/DL Aspartate Amino Transf (AST/SGOT) 35 H 5-34 U/L Alanine Aminotransferase (ALT/SGPT) 36 0-55 U/L Alkaline Phosphatase 78 40-136 U/L Troponin I < 0.30 <0.30 NG/ML Total Protein 6.7 6.4-8.2 GM/DL Albumin 3.9 3.2-4.5 GM/DL My Orders Orders - STEVE DOMINIQUE DO Cbc With Automated Diff (12/19/20 21:26) Chest 1 View Ap/Pa Only (12/19/20 21:26) Ekg Tracing (12/19/20 21:26) Comprehensive Metabolic Panel (12/19/20 21:26) Monitor-Rhythm Ecg Trace Only (12/19/20 21:26) Ed Iv/Invasive Line Start (12/19/20 21:26) Troponin I Fs (12/19/20 21:26) Vital Signs/I&O 12/19/20 21:22 Temp 36.8 Pulse 66 Resp 18 B/P (MAP) 111/62 (78) Pulse Ox 97 O2 Delivery Room Air Initial ECG Impression Date: Dec 19, 2020 Initial ECG Impression Time: 21:26 Initial ECG Rate: 64 Initial ECG Rhythm: Normal Sinus Initial ECG Intervals RBBB Initial ECG Impression: Nonspecific Changes Comment no acute st changes Diagnostic Imaging Diagonstic Imaging: Xray Plain Films/CT/US/NM/MRI: chest Comments [facility] [place], [place] NAME: PRAKASH DAVIS MED REC#: [id number] PT STATUS: REG ER : 1960 PHYSICIAN: STEVE DOMINIQUE DO ADMIT DATE: 12/19/20/ER FS Draft Date of Exam:12/19/20 CHEST 1 VIEW AP/PA ONLY INDICATION: Chest pain. COMPARISON: 09/14/2020. FINDINGS: The lungs are clear. No failure, effusion or pneumothorax. IMPRESSION: There is no acute appearing abnormality. Departure Impression Primary Impression: Pill dysphagia Disposition: HOME, SELF-CARE Condition: Stable Departure-Patient Inst. Patient Instructions: Chest Pain (DC), Dysphagia (DC) Add. Discharge Instructions: Follow-up with your primary care provider Monday or Monday if you are still having difficulty sleeping Return to the ER as needed STEVE DOMINIQUE DO Dec 19, 2020 21:26
[2020-12-19 21:41] LABS: HEMATOCRIT 39 % (40-54); HEMOGLOBIN 13.5 G/DL (13.3-17.7); MEAN CORPUSCULAR HEMOGLOBIN 31 PG (25-34); MEAN CORPUSCULAR HGB CONC 35 G/DL (32-36); MEAN CORPUSCULAR VOLUME 88 FL (80-99); MEAN PLATELET VOLUME 9.5 FL (7.4-10.4); NEUTROPHILS % (AUTO) 54 % (42-75); PLATELET COUNT 198 10^3/uL (130-400); WHITE BLOOD COUNT 7.2 10^3/uL (4.3-11.0)
[2020-12-19 21:42] LABS: BASOPHILS # (AUTO) 0.1 10^3/uL (0.0-0.1); BASOPHILS % (AUTO) 1 % (0-10); EOSINOPHILS # (AUTO) 0.3 10^3/uL (0.0-0.3); EOSINOPHILS % (AUTO) 4 % (0-10); LYMPHOCYTES # (AUTO) 2.5 X 10^3 (1.0-4.0); LYMPHOCYTES % (AUTO) 34 % (12-44); MONOCYTES # (AUTO) 0.5 X 10^3 (0.0-1.0); MONOCYTES % (AUTO) 7 % (0-12); NEUTROPHILS # (AUTO) 3.9 X 10^3 (1.8-7.8)
--- NOTE | 2020-12-19 21:42 | Diagnostic Imaging Report ---
INDICATION: Chest pain. COMPARISON: 09/14/2020. FINDINGS: The lungs are clear. No failure, effusion or pneumothorax. IMPRESSION: There is no acute appearing abnormality. Dictated by: Dictated on workstation # [id number]
[2020-12-19 22:04] LABS: ALANINE AMINOTRANSFERASE 36 U/L (0-55); ALBUMIN 3.9 GM/DL (3.2-4.5); ALKALINE PHOSPHATASE 78 U/L (40-136); BILIRUBIN,TOTAL 0.6 MG/DL (0.1-1.0); BUN/CREATININE RATIO 6; CALCIUM 9.1 MG/DL (8.5-10.1); CARBON DIOXIDE 23 MMOL/L (21-32); CREATININE SERUM 0.78 MG/DL (0.60-1.30); GFR ESTIMATED > 60; GLUCOSE 150 MG/DL (70-105); TOTAL PROTEIN 6.7 GM/DL (6.4-8.2)
[2020-12-19 22:07] VITALS: BP 93/57
[2020-12-19 22:14] LABS: CHLORIDE 106 MMOL/L (98-107); POTASSIUM 3.7 MMOL/L (3.6-5.0); SODIUM 138 MMOL/L (135-145)
== END 2020-12-19 22:15 | disposition home or self-care (01) ==
LOC: EDUNIT# 21:21 → ER FS 21:24
DX: R13.19 Other dysphagia (principal); Z79.82 Long term (current) use of aspirin
CPT/HCPCS: 36415; 71045; 80053; 84484; 85025; 93005; 93041

== ENCOUNTER 2021-03-14 10:56 | Emergency (ER) | payer MEDICARE, MEDICAID ==
[~2021-03-14] VITALS: Ht 172.7 cm; Wt 71.5 kg
[~2021-03-14 10:56] MED LIST changes: +DICL100G13; -DICL100G31; -OMEP40CA27 PO; +OMEP40CA6 PO; -OXYC-464 PO; +OXYC1TAB15 PO
[2021-03-14] MEDS ORDERED: DICYCLOMINE 10 MG/ML (BENTYL) 2 ML AMP IM STA (11:28)
[2021-03-14] MEDS ORDERED: NS IV 1000 ML 1,000 ML IV STA (11:28)
[2021-03-14] MEDS ORDERED: PANTOPRAZOLE 40 MG (PROTONIX) VIAL IV STA (11:28)
--- NOTE | 2021-03-14 11:36 | ED General ---
General Chief Complaint: Abdominal/GI Problems Stated Complaint: DIARRHEA | STOMACH PAIN | GENERAL WEAKNESS Source of Information: Patient History of Present Illness Date Seen by Provider: Mar 14, 2021 Time Seen by Provider: 11:01 Initial Comments 61-year-old male presenting with complaints of over a month of diarrhea. He has hemorrhoids referred up now because the diarrhea. He has diffuse abdominal cramping. He recently had open heart surgery with bypass of the go. He had a longstanding history of hemorrhoids and alternating constipation and diarrhea. He states he was diagnosed with normal bowel and is to follow with Dr. Martinez but after [facility] closed and she left he has been following with Dr. Calvillo. He reports that Dr. Calvillo and recently prescribed pain medicine for irritable bowel but it caused $1800 and was not helping. He was having generalized weakness and felt like he was having difficulty eating and drinking. He stated that there is nothing different today other than he was just tired of feeling poorly and having diarrhea. He denies any fever, chills, cough, shortness of breath, leg swelling, dark tarry stool, pain with urination. He states that he asked Dr. Calvillo for a cream that had lidocaine in it because when he got it from Dr. Martinez it had cleared up his hemorrhoids quickly after using it. However he was prescribed medicine similar to Preparation H which she states has not been helping and the irritable bowel medication Timing/Duration: Other (More than a month of recurrent issues with diarrhea. This has been a longstanding recurrent issue for several years) Associated Systoms: No Chest Pain, No Cough, No Diaphoresis, No Fever/Chills; Malaise; No Nausea/Vomiting, No Rash, No Seizure, No Shortness of Air, No Syncope; Weakness (Generalized) Allergies and Home Medications Allergies Coded Allergies: No Known Drug Allergies (Unverified , 05/22/20) Home Medications Alprazolam 1 Mg Tablet, 1 MG PO BID PRN for ANXIETY, (Reported) Last Action: Last Taken Edited Aspirin 81 Mg Tab.chew, 81 MG PO DAILY Prescribed by: MARIELLA LOPEZ on 09/16/20 1032 Last Action: Last Taken Edited Atorvastatin Calcium 40 Mg Tablet, 40 MG PO HS Prescribed by: MARIELLA LOPEZ on 09/16/20 1032 Last Action: Last Taken Edited Ciprofloxacin HCl 500 Mg Tablet, 500 MG PO BID Prescribed by: MANDY TEE on 03/14/21 1413 Clopidogrel Bisulfate 75 Mg Tablet, 75 MG PO DAILY Prescribed by: MARIELLA LOPEZ on 09/16/20 1032 Last Action: Last Taken Edited Dicyclomine HCl 20 Mg Tablet, 20 MG PO QID PRN for Abdominal Pain/Nausea Prescribed by: MANDY TEE on 03/14/21 1413 Lidocaine 15 Gm Cream..g., 0.25 GM TP 5XD PRN for HEMMORRHOID DISCOMFORT Apply small amount to hemmorrhoids up to 5 times a day as needed for pain and swelling. Prescribed by: MANDY TEE on 03/14/21 1413 Metoprolol Succinate 25 Mg Tab.er.24h, 25 MG PO DAILY Prescribed by: MARIELLA LOPEZ on 09/16/20 1032 Last Action: Last Taken Edited Metronidazole 500 Mg Tablet, 500 MG PO BID Prescribed by: MANDY TEE on 03/14/21 1413 Omeprazole 40 Mg Capsule.dr, 40 MG PO DAILY PRN for HEARTBURN, (Reported) Last Action: Last Taken Edited Oxycodone HCl/Acetaminophen 1 Each Tablet, 1 EA PO TID PRN for PAIN-MODERATE (5- 7), (Reported) Last Action: Last Taken Edited Zolpidem Tartrate 10 Mg Tablet, 10 MG PO HS PRN for SLEEP, (Reported) Last Action: Last Taken Edited Patient Home Medication List Home Medication List Reviewed: Yes Review of Systems Review of Systems Constitutional: see HPI EENTM: no symptoms reported Respiratory: no symptoms reported Cardiovascular: no symptoms reported Gastrointestinal: see HPI Genitourinary: no symptoms reported Musculoskeletal: no symptoms reported Skin: No rash Psychiatric/Neurological: Weakness (general) Past Dxihxjp-Mrskyn-Yckpif Hx Immunizations Up To Date Tetanus Booster (TDap): Unknown Past Medical History Surgeries: Yes Coronary Stent, Open Heart Surgery (Bypass surgery January 2021) Cardiac: Yes (X13 STENTS) Coronary Artery Disease, Heart Attack, High Cholesterol, Hypertension Genitourinary: No Gastrointestinal: No Endocrine: No HEENT: No Cancer: No Psychosocial: No Physical Exam Vital Signs Vital Signs - First Documented 03/14/21 03/14/21 11:09 14:18 Temp 36.8 Pulse 79 Resp 17 B/P (MAP) 135/80 (98) Pulse Ox 98 O2 Delivery Room Air O2 Flow Rate 4.00 Capillary Refill : Height, Weight, BMI Height: '" Weight: lbs. oz. kg; 27.82 BMI Method: General Appearance: No Apparent Distress, WD/WN Neck: Full Range of Motion, Normal Inspection, Non Tender, Supple Respiratory: Chest Non Tender, Lungs Clear, Normal Breath Sounds Cardiovascular: Regular Rate, Rhythm, Normal Peripheral Pulses Gastrointestinal: Normal Bowel Sounds, No Pulsatile Mass, Soft; No Rebound; Tenderness (mild diffuse tenderness to palpation) Rectal: Deferred Back: No CVA Tenderness Extremity: Normal Capillary Refill, Normal Inspection, No Pedal Edema Neurologic/Psychiatric: Alert, Oriented x3, c consultant II-XII Norm as Tested Skin: Normal Color, Warm/Dry Progress/Results/Core Measures Suspected Sepsis SIRS Temperature: Pulse: Respiratory Rate: Laboratory Tests 03/14/21 11:30: White Blood Count 5.9 Blood Pressure / Mean: Laboratory Tests 03/14/21 11:30: Creatinine 0.73, INR Comment 1.2, Platelet Count 196, Total Bilirubin 0.3 Results/Orders Lab Results Laboratory Tests Test 03/14/21 11:10 03/14/21 11:30 Range/Units Urine Color DARK YELLOW Urine Clarity CLEAR Urine pH 6.0 5-9 Urine Specific [place] 1.020 1.016-1.022 Urine Protein NEGATIVE NEGATIVE Urine Glucose (UA) NEGATIVE NEGATIVE Urine Ketones NEGATIVE NEGATIVE Urine Nitrite POSITIVE H NEGATIVE Urine Bilirubin NEGATIVE NEGATIVE Urine Urobilinogen 0.2 < = 1.0 MG/DL Urine Leukocyte Esterase TRACE H NEGATIVE Urine RBC (Auto) NEGATIVE NEGATIVE Urine RBC 0-2 /HPF Urine WBC 0-2 /HPF Urine Squamous Epithelial Cells NONE /HPF Urine Crystals NONE /LPF Urine Bacteria FEW H /HPF Urine Casts NONE /LPF Urine Mucus MODERATE H /LPF Urine Culture Indicated YES White Blood Count 5.9 4.3-11.0 10^3/uL Red Blood Count 4.44 4.35-5.85 10^6/uL Hemoglobin 12.7 L 13.3-17.7 G/DL Hematocrit 38 L 40-54 % Mean Corpuscular Volume 86 80-99 FL Mean Corpuscular Hemoglobin 29 25-34 PG Mean Corpuscular Hemoglobin Concent 33 32-36 G/DL Red Cell Distribution Width 15.2 H 10.0-14.5 % Platelet Count 196 130-400 10^3/uL Mean Platelet Volume 10.3 7.4-10.4 FL Immature Granulocyte % (Auto) 0 % Neutrophils (%) (Auto) 67 42-75 % Lymphocytes (%) (Auto) 23 12-44 % Monocytes (%) (Auto) 7 0-12 % Eosinophils (%) (Auto) 2 0-10 % Basophils (%) (Auto) 1 0-10 % Neutrophils # (Auto) 4.0 1.8-7.8 X 10^3 Lymphocytes # (Auto) 1.4 1.0-4.0 X 10^3 Monocytes # (Auto) 0.4 0.0-1.0 X 10^3 Eosinophils # (Auto) 0.1 0.0-0.3 10^3/uL Basophils # (Auto) 0.0 0.0-0.1 10^3/uL Immature Granulocyte # (Auto) 0.0 0.0-0.1 10^3/uL Prothrombin Time 15.9 H 12.2-14.7 SEC INR Comment 1.2 0.8-1.4 Activated Partial Thromboplast Time 28 24-35 SEC Sodium Level 137 135-145 MMOL/L Potassium Level 4.1 3.6-5.0 MMOL/L Chloride Level 105 98-107 MMOL/L Carbon Dioxide Level 23 21-32 MMOL/L Anion Gap 9 5-14 MMOL/L Blood Urea Nitrogen 3 L 7-18 MG/DL Creatinine 0.73 0.60-1.30 MG/DL Estimat Glomerular Filtration Rate > 60 BUN/Creatinine Ratio 4 Glucose Level 168 H 70-105 MG/DL Calcium Level 9.8 8.5-10.1 MG/DL Corrected Calcium 9.9 8.5-10.1 MG/DL Magnesium Level 1.9 1.6-2.4 MG/DL Total Bilirubin 0.3 0.1-1.0 MG/DL Aspartate Amino Transf (AST/SGOT) 36 H 5-34 U/L Alanine Aminotransferase (ALT/SGPT) 26 0-55 U/L Alkaline Phosphatase 124 40-136 U/L Troponin I < 0.30 <0.30 NG/ML Pro-B-Type Natriuretic Peptide 282.2 H <75.0 PG/ML Total Protein 7.4 6.4-8.2 GM/DL Albumin 3.9 3.2-4.5 GM/DL Lipase 54 8-78 U/L My Orders Orders - MANDY TEE MD Comprehensive Metabolic Panel (03/14/21 11:15) Lipase (03/14/21 11:15) Ua Culture If Indicated (03/14/21 11:15) Ed Iv/Invasive Line Start (03/14/21 11:15) Cbc With Automated Diff (03/14/21 11:15) Magnesium (03/14/21 11:15) Ekg Tracing (03/14/21 11:15) Monitor-Rhythm Ecg Trace Only (03/14/21 11:15) Troponin I Fs (03/14/21 11:15) Probnp Fs (03/14/21 11:15) Protime With Inr (03/14/21 11:28) Partial Thromboplastin Time (03/14/21 11:28) Ct Abdomen/Pelvis W (03/14/21 11:28) Ns Iv 1000 Ml (Sodium Chloride 0.9%) (03/14/21 11:28) Pantoprazole Injection (Protonix Injecti (03/14/21 11:28) Dicyclomine Injection (Bentyl Injection) (03/14/21 11:28) Iohexol Injection (Omnipaque 350 Mg/Ml 1 (03/14/21 12:15) Received Contrast (Hold Metformin- Contr (03/14/21 12:15) Sodium Chloride Flush (Catheter Flush Sy (03/14/21 12:15) Ns (Ivpb) (Sodium Chloride 0.9% Ivpb Bag (03/14/21 12:15) Urine Culture (03/14/21 11:10) Metronidazole 500mg/100ml Ivpb (Flagyl 5 (03/14/21 13:23) Ciprofloxacin Tablet (Cipro Tablet) (03/14/21 13:23) Medications Given in ED Current Medications Medications Dose Ordered Sig/Dereje Route Start Time Stop Time Status Last Admin Dose Admin Iohexol 100 ml ONCE ONCE IV 03/14/21 12:15 03/14/21 12:16 DC 03/14/21 12:44 100 ML Sodium Chloride 10 ml NEEDED PRN IV 03/14/21 12:15 03/14/21 14:18 DC 03/14/21 12:44 10 ML Sodium Chloride 100 ml ONCE ONCE IV 03/14/21 12:15 03/14/21 12:16 DC 03/14/21 12:44 100 ML Vital Signs/I&O 03/14/21 03/14/21 11:09 14:18 Temp 36.8 36.8 Pulse 79 64 Resp 17 22 B/P (MAP) 135/80 (98) 135/79 (98) Pulse Ox 98 97 O2 Delivery Room Air Nasal Cannula O2 Flow Rate 4.00 Capillary Refill : Progress Note #1: Progress Note Check basic labs as well as urinalysis and liver enzymes with lipase for pancreas evaluation. Ordered CT scan to evaluate his abdomen and pelvis. Give IV fluids along with Protonix and Bentyl. The IV fluids for hydration and the Protonix for his epigastric pain and the Bentyl for the diffuse abdominal pain and cramping. Differential diagnosis includes irritable bowel, chronic diarrhea, dive rticulitis, colitis, urinary tract infection Progress Note #2: Progress Note Labs appear stable without acute significant normality on CBC or chemistry. The urinalysis does demonstrate signs of a UTI. He has findings of colitis on CT scan. He states he has improved symptoms with treatment here in the ED. Will discharge Cipro and Flagyl for colitis which would also treat his UTI. Prescribed Bentyl for abdominal cramping and nausea. Prescribed RectiCare for the lidocaine cream for his hemorrhoids. Counseled on follow-up and return precautions. ECG Initial ECG Impression Date: Mar 14, 2021 Initial ECG Impression Time: 11:31 Initial ECG Rate: 63 Initial ECG Rhythm: Normal Sinus Initial ECG Comparisson: Unchanged Comment Normal sinus rhythm with heart rate 63 bpm. NV interval 141 ms. He has multiple PVCs present there is a right bundle branch block present. No acute ST elevation. QT interval 437 ms with a QTc interval 448 ms. Appears similar to prior tracings in the system. Diagnostic Imaging Diagonstic Imaging: CT Plain Films/CT/US/NM/MRI: abdomen, pelvis Comments NAME: PRAKASH DAVIS MED REC#: [id number] PT STATUS: REG ER : 1960 PHYSICIAN: MANDY TEE MD ADMIT DATE: 03/14/21/ER FS Draft Date of Exam:03/14/21 CT ABDOMEN/PELVIS W EXAMINATION: CT abdomen and pelvis with intravenous contrast. TECHNIQUE: Multiple contiguous axial images were obtained through the abdomen and pelvis after the uneventful administration of intravenous contrast. All CT scans use one or more of the following dose optimizing techniques: automated exposure control, MA and/or KvP adjustment based on patient size and exam type or iterative reconstruction. HISTORY: Diarrhea for a month. Abdominal cramping. COMPARISON: 05/22/2020. FINDINGS: The heart is unremarkable. Small left pleural effusion is seen with left basilar atelectasis. A nodule is seen in the left adrenal gland measuring 2.5 x 1.2 cm, relatively stable since the prior exam. The right adrenal gland is unremarkable. 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 No pancreatic ductal dilation. No peripancreatic inflammatory changes. The liver, spleen, and kidneys have a normal appearance. The gallbladder is surgically absent. There is no pathologically enlarged mesenteric or retroperitoneal adenopathy. The bowel loops are nondilated. The appendix is visualized in the right lower quadrant and has a normal appearance. There is mild bowel wall thickening involving the cecum and ascending colon. There is no free fluid or free air. No acute osseous abnormalities. There is calcified aortic and iliac atherosclerotic plaque without aneurysm. Ureters and bladder are grossly normal. There is no free air, loculated collection, or adenopathy in the pelvis. IMPRESSION: 1. Mild bowel wall thickening involving the cecum and ascending colon, which may represent colitis. No bowel obstruction. Normal appendix. No free fluid or free air. 2. Small left pleural effusion with small amount of subsegmental atelectasis in the left lung base. 3. Stable left adrenal nodule. Findings likely represent benign adrenal adenoma. Recommend follow-up as indicated. Dictated on workstation # [id number] Dict: 03/14/21 1257 Trans: 03/14/21 1307 [facility] [id number] Interpreted by: KAYLA DOMÍNGUEZ DO Electronically signed by: Departure Impression Primary Impression: Colitis Additional Impressions: Cystitis without hematuria Diarrhea Qualified Codes: R19.7 - Diarrhea, unspecified Disposition: 01 HOME, SELF-CARE Condition: Stable Departure-Patient Inst. Decision time for Depature: 14:13 Referrals: SELFJAYCOB MD (PCP/Family) Primary Care Physician Patient Instructions: [place] Diet, Colitis (DC), Diarrhea, Adult ED, Ulcer and Gastritis Diet, Urinary Tract Infection, Adult ED Add. Discharge Instructions: Take antibiotics to treat for urine infection and colitis. Make sure to drink plenty of fluids and stay well-hydrated Use the Bentyl or dicyclomine to help with nausea and abdominal pain cramping. Check back with Dr. Calvillo in clinic as you may need to have a colonoscopy done once the antibiotics are done and the inflammation has resolved from the colitis. This would be to check and ensure that the colitis was cleared up and that you do not need medicine specifically for colitis and bowel inflammation longterm to help with your symptoms. All discharge instructions reviewed with patient and/or family. Voiced understanding. Scripts Dicyclomine HCl (Dicyclomine HCl) 20 Mg Tablet 20 MG PO QID PRN for Abdominal Pain/Nausea for 10 Days, #40 TAB 0 Refills Prov: MANDY TEE MD 03/14/21 Metronidazole (Metronidazole) 500 Mg Tablet 500 MG PO BID for Colitis for 10 Days, #20 TAB 0 Refills Prov: MANDY TEE MD 03/14/21 Ciprofloxacin HCl (Ciprofloxacin HCl) 500 Mg Tablet 500 MG PO BID for Colitis for 10 Days, #20 TAB 0 Refills Prov: MANDY TEE MD 03/14/21 Lidocaine (Recticare) 15 Gm Cream..g. 0.25 GM TP 5XD PRN for HEMMORRHOID DISCOMFORT for 10 Days, #30 GM 1 Refill Apply small amount to hemmorrhoids up to 5 times a day as needed for pain and swelling. Prov: MANDY TEE MD 03/14/21 MANDY TEE MD Mar 14, 2021 11:36
[2021-03-14 12:09] LABS: BASOPHILS % (AUTO) 1 % (0-10); EOSINOPHILS % (AUTO) 2 % (0-10); HEMATOCRIT 38 % (40-54); HEMOGLOBIN 12.7 G/DL (13.3-17.7); LYMPHOCYTES % (AUTO) 23 % (12-44); MEAN CORPUSCULAR HEMOGLOBIN 29 PG (25-34); MEAN CORPUSCULAR HGB CONC 33 G/DL (32-36); MEAN CORPUSCULAR VOLUME 86 FL (80-99); MEAN PLATELET VOLUME 10.3 FL (7.4-10.4); MONOCYTES % (AUTO) 7 % (0-12); PLATELET COUNT 196 10^3/uL (130-400); WHITE BLOOD COUNT 5.9 10^3/uL (4.3-11.0)
[2021-03-14 12:10] LABS: EOSINOPHILS # (AUTO) 0.1 10^3/uL (0.0-0.3); INR 1.2 (0.8-1.4); LYMPHOCYTES # (AUTO) 1.4 X 10^3 (1.0-4.0); MONOCYTES # (AUTO) 0.4 X 10^3 (0.0-1.0); NEUTROPHILS % (AUTO) 67 % (42-75); PROTHROMBIN TIME PATIENT 15.9 SEC (12.2-14.7)
[2021-03-14] MEDS ORDERED: HOLD METFORMIN - RECEIVED CONTRAST 20 ML VIAL IV SCH (12:15)
[2021-03-14] MEDS ORDERED: NS 100 ML (IVPB) BAG IV ONE (12:15)
[2021-03-14] MEDS ORDERED: IOHEXOL 350 MG/ML 100 ML (OMNIPAQUE 350) VIAL IV ONE (12:15)
[2021-03-14] MEDS ORDERED: CATHETER FLUSH 10 ML SYR IV PRN (12:15)
[2021-03-14 12:17] LABS: BACTERIA,URINE FEW /HPF; BILIRUBIN,URINE NEGATIVE (NEGATIVE); CLARITY,URINE CLEAR; COLOR,URINE DARK YELLOW; GLUCOSE, URINE (UA) NEGATIVE (NEGATIVE); KETONES,URINE NEGATIVE (NEGATIVE); LEUKOCYTE ESTERASE ,URINE TRACE (NEGATIVE); NITRITE,URINE POSITIVE (NEGATIVE); PROTEIN,URINE NEGATIVE (NEGATIVE); RBC,URINE 0-2 /HPF; WBC,URINE 0-2 /HPF
[2021-03-14 12:23] LABS: CARBON DIOXIDE 23 MMOL/L (21-32); CHLORIDE 105 MMOL/L (98-107); POTASSIUM 4.1 MMOL/L (3.6-5.0); SODIUM 137 MMOL/L (135-145)
[2021-03-14 12:24] LABS: ALANINE AMINOTRANSFERASE 26 U/L (0-55); ALBUMIN 3.9 GM/DL (3.2-4.5); ALKALINE PHOSPHATASE 124 U/L (40-136); BILIRUBIN,TOTAL 0.3 MG/DL (0.1-1.0); BUN/CREATININE RATIO 4; CALCIUM 9.8 MG/DL (8.5-10.1); CREATININE SERUM 0.73 MG/DL (0.60-1.30); GFR ESTIMATED > 60; GLUCOSE 168 MG/DL (70-105); MAGNESIUM 1.9 MG/DL (1.6-2.4); TOTAL PROTEIN 7.4 GM/DL (6.4-8.2)
[2021-03-14 12:29] LABS: LIPASE 54 U/L (8-78)
--- NOTE | 2021-03-14 13:07 | Diagnostic Imaging Report ---
EXAMINATION: CT abdomen and pelvis with intravenous contrast. TECHNIQUE: Multiple contiguous axial images were obtained through the abdomen and pelvis after the uneventful administration of intravenous contrast. All CT scans use one or more of the following dose optimizing techniques: automated exposure control, MA and/or KvP adjustment based on patient size and exam type or iterative reconstruction. HISTORY: Diarrhea for a month. Abdominal cramping. COMPARISON: 05/22/2020. FINDINGS: The heart is unremarkable. Small left pleural effusion is seen with left basilar atelectasis. A nodule is seen in the left adrenal gland measuring 2.5 x 1.2 cm, relatively stable since the prior exam. The right adrenal gland is unremarkable. 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 No pancreatic ductal dilation. No peripancreatic inflammatory changes. The liver, spleen, and kidneys have a normal appearance. The gallbladder is surgically absent. There is no pathologically enlarged mesenteric or retroperitoneal adenopathy. The bowel loops are nondilated. The appendix is visualized in the right lower quadrant and has a normal appearance. There is mild bowel wall thickening involving the cecum and ascending colon. There is no free fluid or free air. No acute osseous abnormalities. There is calcified aortic and iliac atherosclerotic plaque without aneurysm. Ureters and bladder are grossly normal. There is no free air, loculated collection, or adenopathy in the pelvis. IMPRESSION: 1. Mild bowel wall thickening involving the cecum and ascending colon, which may represent colitis. No bowel obstruction. Normal appendix. No free fluid or free air. 2. Small left pleural effusion with small amount of subsegmental atelectasis in the left lung base. 3. Stable left adrenal nodule. Findings likely represent benign adrenal adenoma. Recommend follow-up as indicated. Dictated by: Dictated on workstation # [id number]
[2021-03-14] MEDS ORDERED: metroNIDAZOLE 500MG/100ML IVPB 100 ML IV STA (13:23)
[2021-03-14] MEDS ORDERED: CIPROFLOXACIN 500 MG (CIPRO) TABLET PO STA (13:23)
[2021-03-14] MEDS ORDERED: METR-145 PO (14:13)
[2021-03-14] MEDS ORDERED: LIDO15CR6 TP (14:13)
[2021-03-14] MEDS ORDERED: CIPR500T5 PO (14:13)
[2021-03-14] MEDS ORDERED: DICY20TA10 PO (14:13)
[2021-03-14 14:18] VITALS: BP 135/79
== END 2021-03-14 14:18 | disposition home or self-care (01) ==
LOC: EDUNIT# 10:56 → ER FS 10:58
DX: K52.9 Noninfective gastroenteritis and colitis, unspecified (principal); N30.90 Cystitis, unspecified without hematuria; I10 Essential (primary) hypertension; I25.2 Old myocardial infarction; E78.00 Pure hypercholesterolemia, unspecified; I25.10 Atherosclerotic heart disease of native coronary artery without angina pectoris; Z79.82 Long term (current) use of aspirin; Z79.01 Long term (current) use of anticoagulants; Z79.899 Other long term (current) drug therapy
CPT/HCPCS: 36415; 74177; 80053; 81000; 83690; 83735; 83880; 84484; 85025; 85610; 85730; 87077; 87088; 93005; 93041

== ENCOUNTER 2021-04-03 11:27 | Emergency (ER) | payer MEDICARE, MEDICAID ==
[~2021-04-03] VITALS: Ht 172.7 cm; Wt 69.9 kg
[~2021-04-03 11:27] MED LIST changes: +CIPR500T5 PO; +DICY20TA10 PO; +LIDO15CR6 TP; +METR-145 PO
--- NOTE | 2021-04-03 11:48 | ED GI ---
General Stated Complaint: DIARRHEA/DIZZY History of Present Illness Date Seen by Provider: Apr 03, 2021 Time Seen by Provider: 11:46 Initial Comments 61-year-old male presents with 1 month history of diarrhea. Diagnosed with colitis in this ER recently and sent home with prescriptions. Patient states he is no better. He is not taking any medication to prevent or slow down his diarrhea. He states that he is scheduled to see a specialist in [place] on April 07 for colonoscopy. He did previously have a colonoscopy 7 years ago that was normal. Denies any blood in his stool, abdominal pain or vomiting. Denies any weight loss. Allergies and Home Medications Allergies Coded Allergies: No Known Drug Allergies (Unverified , 05/22/20) Home Medications Alprazolam 1 Mg Tablet, 1 MG PO BID PRN for ANXIETY, (Reported) Aspirin 81 Mg Tab.chew, 81 MG PO DAILY Prescribed by: MARIELLA LOPEZ on 09/16/20 1032 Atorvastatin Calcium 40 Mg Tablet, 40 MG PO HS Prescribed by: MARIELLA LOPEZ on 09/16/20 1032 Ciprofloxacin HCl 500 Mg Tablet, 500 MG PO BID Prescribed by: MANDY TEE on 03/14/21 1413 Clopidogrel Bisulfate 75 Mg Tablet, 75 MG PO DAILY Prescribed by: MARIELLA LOPEZ on 09/16/20 1032 Dicyclomine HCl 20 Mg Tablet, 20 MG PO QID PRN for Abdominal Pain/Nausea Prescribed by: MANDY TEE on 03/14/21 1413 Lidocaine 15 Gm Cream..g., 0.25 GM TP 5XD PRN for HEMMORRHOID DISCOMFORT Apply small amount to hemmorrhoids up to 5 times a day as needed for pain and swelling. Prescribed by: MANDY TEE on 03/14/21 1413 Metoprolol Succinate 25 Mg Tab.er.24h, 25 MG PO DAILY Prescribed by: MARIELLA LOPEZ on 09/16/20 1032 Metronidazole 500 Mg Tablet, 500 MG PO BID Prescribed by: MANDY TEE on 03/14/21 1413 Omeprazole 40 Mg Capsule.dr, 40 MG PO DAILY PRN for HEARTBURN, (Reported) Oxycodone HCl/Acetaminophen 1 Each Tablet, 1 EA PO TID PRN for PAIN-MODERATE (5- 7), (Reported) Zolpidem Tartrate 10 Mg Tablet, 10 MG PO HS PRN for SLEEP, (Reported) Patient Home Medication List Home Medication List Reviewed: Yes Review of Systems Review of Systems Constitutional: No chills, No fever, No malaise, No weakness Respiratory: Denies Cough, Denies Shortness of Air Gastrointestinal: See HPI; Denies Abdomen Distended, Denies Abdominal Pain, Denies Blood Streaked Stools, Denies Constipated; Diarrhea; Denies Difficulty Swallowing, Denies Nausea, Denies Poor Appetite, Denies Poor Fluid Intake, Denies Rectal Bleeding, Denies Vomiting Genitourinary: No Symptoms Reported Musculoskeletal: no symptoms reported Skin: No change in color, No rash Past Fniivyv-Spudyp-Zxyavw Hx Patient Social History Tobacco Use?: No Immunizations Up To Date Tetanus Booster (TDap): Unknown Past Medical History Surgery/Hospitalization HX: Quadruple CABG, Coronary stents x 19, GB, IBS-chronic abd issues Surgeries: Yes Coronary Stent, Open Heart Surgery Cardiac: Yes (X13 STENTS) Coronary Artery Disease, Heart Attack, High Cholesterol, Hypertension Genitourinary: No Gastrointestinal: No Endocrine: No HEENT: No Cancer: No Psychosocial: No Physical Exam Vital Signs Vital Signs - First Documented 04/03/21 11:35 Temp 36.9 Pulse 62 Resp 18 B/P (MAP) 135/75 (95) Pulse Ox 97 O2 Delivery Room Air Capillary Refill : Height/Weight/BMI Height: '" Weight: lbs. oz. kg; 23.00 BMI Method: General Appearance: WD/WN, no apparent distress HEENT: PERRL/EOMI, normal ENT inspection Neck: non-tender, supple Respiratory: chest non-tender, lungs clear, normal breath sounds, no respiratory distress, no accessory muscle use Cardiovascular: regular rate, rhythm, no JVD Gastrointestinal: non tender, soft Extremities: non-tender, normal inspection Back: normal inspection, no CVA tenderness Neurologic/Psychiatric: alert, normal mood/affect, oriented x 3 Skin: normal color, warm/dry Progress/Results/Core Measures Results/Orders Lab Results Laboratory Tests Test 04/03/21 11:43 Range/Units White Blood Count 4.7 4.3-11.0 10^3/uL Red Blood Count 3.84 L 4.35-5.85 10^6/uL Hemoglobin 11.0 L 13.3-17.7 G/DL Hematocrit 33 L 40-54 % Mean Corpuscular Volume 87 80-99 FL Mean Corpuscular Hemoglobin 29 25-34 PG Mean Corpuscular Hemoglobin Concent 33 32-36 G/DL Red Cell Distribution Width 15.9 H 10.0-14.5 % Platelet Count 173 130-400 10^3/uL Mean Platelet Volume 9.9 7.4-10.4 FL Immature Granulocyte % (Auto) 0 % Neutrophils (%) (Auto) 61 42-75 % Lymphocytes (%) (Auto) 26 12-44 % Monocytes (%) (Auto) 9 0-12 % Eosinophils (%) (Auto) 2 0-10 % Basophils (%) (Auto) 1 0-10 % Neutrophils # (Auto) 2.9 1.8-7.8 X 10^3 Lymphocytes # (Auto) 1.2 1.0-4.0 X 10^3 Monocytes # (Auto) 0.4 0.0-1.0 X 10^3 Eosinophils # (Auto) 0.1 0.0-0.3 10^3/uL Basophils # (Auto) 0.0 0.0-0.1 10^3/uL Immature Granulocyte # (Auto) 0.0 0.0-0.1 10^3/uL Sodium Level 140 135-145 MMOL/L Potassium Level 4.1 3.6-5.0 MMOL/L Chloride Level 108 H 98-107 MMOL/L Carbon Dioxide Level 23 21-32 MMOL/L Anion Gap 9 5-14 MMOL/L Blood Urea Nitrogen 5 L 7-18 MG/DL Creatinine 0.65 0.60-1.30 MG/DL Estimat Glomerular Filtration Rate 124 BUN/Creatinine Ratio 8 Glucose Level 105 70-105 MG/DL Calcium Level 9.0 8.5-10.1 MG/DL Corrected Calcium 9.5 8.5-10.1 MG/DL Total Bilirubin 0.2 0.1-1.0 MG/DL Aspartate Amino Transf (AST/SGOT) 72 H 5-34 U/L Alanine Aminotransferase (ALT/SGPT) 54 0-55 U/L Alkaline Phosphatase 92 40-136 U/L Total Protein 6.5 6.4-8.2 GM/DL Albumin 3.4 3.2-4.5 GM/DL My Orders Orders - NEELA SANTIZO DO Ed Iv/Invasive Line Start (04/03/21 11:46) Cbc With Automated Diff (04/03/21 11:46) Comprehensive Metabolic Panel (04/03/21 11:46) Ns Iv 1000 Ml (Sodium Chloride 0.9%) (04/03/21 12:00) Loperamide Tablet (Imodium Tablet) (04/03/21 12:00) Medications Given in ED Current Medications Medications Dose Ordered Sig/Dereje Route Start Time Stop Time Status Last Admin Dose Admin Loperamide HCl 4 mg ONCE ONCE PO 04/03/21 12:00 04/03/21 12:01 DC 04/03/21 11:53 4 MG Vital Signs/I&O 04/03/21 11:35 Temp 36.9 Pulse 62 Resp 18 B/P (MAP) 135/75 (95) Pulse Ox 97 O2 Delivery Room Air Departure Impression Primary Impression: Diarrhea Qualified Codes: R19.7 - Diarrhea, unspecified Disposition: HOME, SELF-CARE Condition: Stable Departure-Patient Inst. Decision time for Depature: 12:17 Referrals: SELFJAYCOB MD (PCP/Family) Primary Care Physician Patient Instructions: Diarrhea, Adult ED Add. Discharge Instructions: Keep your follow up appointment to see the GI specialist in [place], scheduled on 07 April. Scripts Loperamide HCl (Imodium A-D) 2 Mg Tablet 2 MG PO BID PRN for Diarrhea, #10 TAB Prov: NEELA SANTIZO DO 04/03/21 NEELA SANTIZO DO Apr 03, 2021 11:48
[2021-04-03 11:50] LABS: BASOPHILS % (AUTO) 1 % (0-10); EOSINOPHILS # (AUTO) 0.1 10^3/uL (0.0-0.3); EOSINOPHILS % (AUTO) 2 % (0-10); HEMATOCRIT 33 % (40-54); LYMPHOCYTES # (AUTO) 1.2 X 10^3 (1.0-4.0); LYMPHOCYTES % (AUTO) 26 % (12-44); MEAN CORPUSCULAR HEMOGLOBIN 29 PG (25-34); MEAN CORPUSCULAR HGB CONC 33 G/DL (32-36); MEAN CORPUSCULAR VOLUME 87 FL (80-99); MEAN PLATELET VOLUME 9.9 FL (7.4-10.4); MONOCYTES # (AUTO) 0.4 X 10^3 (0.0-1.0); MONOCYTES % (AUTO) 9 % (0-12); NEUTROPHILS # (AUTO) 2.9 X 10^3 (1.8-7.8); NEUTROPHILS % (AUTO) 61 % (42-75); PLATELET COUNT 173 10^3/uL (130-400); WHITE BLOOD COUNT 4.7 10^3/uL (4.3-11.0)
[2021-04-03] MEDS ORDERED: LOPERAMIDE 2 MG (IMODIUM) TABLET PO ONE (12:00)
[2021-04-03] MEDS ORDERED: NS IV 1000 ML 1,000 ML IV SCH (12:00)
[2021-04-03 12:08] LABS: CREATININE SERUM 0.65 MG/DL (0.60-1.30); POTASSIUM 4.1 MMOL/L (3.6-5.0)
[2021-04-03 12:09] LABS: ALBUMIN 3.4 GM/DL (3.2-4.5); BILIRUBIN,TOTAL 0.2 MG/DL (0.1-1.0); TOTAL PROTEIN 6.5 GM/DL (6.4-8.2)
[2021-04-03] MEDS ORDERED: LOPE-134 PO (12:17)
[2021-04-03 12:38] VITALS: BP 141/71
--- OUTSIDE RECORDS SUMMARY | 2021-04-05 07:09 | XMS REPORT | Encounter Summary ---
Author Author [facility] Organization [facility] Address Unknown Phone Unavailable Care Team Providers Care Administrative Court Justice Name Role Phone Nilson [place] [phone] Encounter Details Care Team Description Date Type Department Bel Lee RN S/P CABG x 4 (Primary Dx) 02/04/2021 Orders Only Cardiothoracic Surg princess: [facility] [address] [place] [address] Social History Date Tobacco Use Types Packs/Day Years Used Quit: 01/03/2021 Former Smoker 1 40 Smokeless Tobacco: Never Used Comments: stopped 2 weeks ago Drinks/Week oz/Week Comments Alcohol Use Not Currently Sex Assigned at Date Recorded Male 01/05/2021 10:10 AM CDT Date Recorded COVID-19 Exposure Response 02/04/2021 10:18 AM CDT In the last month, have you been in contact with No / Unsure someone who was confirmed or suspected to have Coronavirus / COVID-19? documented as of this encounter Functional Status Date of Assessment Functional Status Response 01/02/2021 Does the patient have a hearing impairment: No documented as of this encounter Ordered Prescriptions Start Date End Date Prescription Sig Dispensed Refills 02/04/2021 02/10/2021 potassium chloride SR Take one 7 tablet 0 (K-DUR) 20 mEq tablet by tabletIndications: S/P mouth daily. CABG x 4 Take with a meal and a full glass of water. 02/04/2021 02/10/2021 furosemide (LASIX) 40 mg Take one 7 tablet 0 tabletIndications: S/P tablet by CABG x 4 mouth every morning. documented in this encounter Progress Notes * Bel Lee RN - 02/04/2021 3:20 PM CDT Manav called asking if Dr. Machado wanted him to start Furosemide for his leg swe lling noted in clinic yesterday. Manav states he completed his thoracentesis to day. Spoke with Dr. Machado who agreed with patient, ordered Furosemide 40mg onc e daily x7 days with Potassium 20mEq once daily x 7 days. Manav has upcoming ap pointment in CTS clinic on 02/10/21 at 1330 for follow-up with Dr. Machado, has XR AY ordered prior to appointment. Reviewed medications with Manav who verbalized understanding. documented in this encounter Plan of Treatment Not on filedocumented as of this encounter Goals Goal Patient Associated Recent Progress Patient-Stat Aut hor Goal Type Problems ed? Improve [facility] On track (01/07/2021 Yes Chelsie 10:51 AM CDT) VIJAYA Santamaria [facility] On track (01/07/2021 No Yas Meléndez 10:51 AM CDT) documented as of this encounter Visit Diagnoses Diagnosis S/P CABG x 4 - Primary Postsurgical aortocoronary bypass statu s documented in this encounter Additional Health Concerns Assessment Noted Time A fall risk assessment has been completed for the pat ient 02/04/2021 10:22 AM CDT documented as of this encounter
--- OUTSIDE RECORDS SUMMARY | 2021-04-05 07:09 | XMS REPORT | Clinical Summary ---
Author Author [facility] Organization [facility] Address Unknown Phone Unavailable Care Team Providers Care Diabetes Educator Name Role Phone PCP Unavailable Source Comments [facility] (Labor and Delivery) documents do not appear in the [facility] Allergies Not on File Medications Please verify current medications with patient. Not on file Active Problems Not on file Social History Date Tobacco Use Types Packs/Day Years Used Never Assessed Sex Assigned at Date Recorded Not on file Last Filed Vital Signs Not on file Plan of Treatment Health Maintenance Due Date Last Done Comments CT Colonography 1960 Colon cancer: DNA-based 1960 stool test (Cologuard) Sigmoidoscopy 1960 gFOBT or FIT 1960 COVID-19 Vaccine (1) 1970 Colonoscopy 01/19/2008 Colorectal Cancer 01/19/2008 Screening Influenza Vaccine (#1) 2021 Pneumococcal Vaccine: 65+ 2023 Years (1 of 1 - PPSV23) HPV Vaccine Aged Out No longer eligible based on patient's age to complete this topic Pneumococcal Vaccine: Aged Out No longer eligib le based on patient's age to Pediatrics (0 to 5 Years) complete this topic and At-Risk Patients (6 to 64 Years) Results Not on filefrom Last 3 Months
--- OUTSIDE RECORDS SUMMARY | 2021-04-05 07:09 | XMS REPORT | Encounter Summary ---
Author Author [facility] Organization [facility] Address Unknown Phone Unavailable Care Team Providers Care Business Office Associate Name Role Phone Rajinder, Nilson [place] [phone] Reason for Referral * Radiology Services (Routine) Referred By Contact Referred To Contact Status Reason Specialty Diagnoses / Procedures Catarino Machado MD [address] [place] [address] Pending Review Radiology Diagnoses S/P CABG x 4 P rocedures CHEST 2 VIEWS Electronically signed by Catarino Machado MD at Reason for Visit * Radiology Services (Routine) Referred By Contact Referred To Contact Status Reason Specialty Diagnoses / Procedures Catarino Machado MD [address] [place] [address] Pending Review Radiology Diagnoses S/P CABG x 4 P rocedures CHEST 2 VIEWS Encounter Details Care Team Description Date Type Department Catarino Machado MD [address] [place], [place] [phone] 02/10/2021 Hospital Imaging: [facility] [address] [place] [address] [address], [address] [place] [address] Social History Date Tobacco Use Types Packs/Day Years Used Quit: 01/03/2021 Former Smoker 1 40 Smokeless Tobacco: Never Used Comments: stopped 2 weeks ago Drinks/Week oz/Week Comments Alcohol Use Not Currently Sex Assigned at Date Recorded Male 01/05/2021 10:10 AM CDT Date Recorded COVID-19 Exposure Response 02/10/2021 12:33 PM CDT In the last month, have you been in contact with No / Unsure someone who was confirmed or suspected to have Coronavirus / COVID-19? documented as of this encounter Functional Status Date of Assessment Functional Status Response 01/02/2021 Does the patient have a hearing impairment: No documented as of this encounter Medications at Time of Discharge Start Date End Date Medication Sig Dispensed Refills acetaminophen (TYLENOL) Take 325 mg 0 325 mg tablet by mouth every 4 hours as needed for Pain. albuterol sulfate (PROAIR Inhale 2 0 HFA) 90 mcg/actuation HFA puffs by aerosol inhaler mouth into the lungs every 6 hours as needed for Wheezing or Shortness of Breath. Shake well before use. ALPRAZolam (XANAX) 1 mg Take 1 mg by 0 tablet mouth twice daily as needed for Anxiety. aspirin EC 81 mg tablet Take 81 mg by 0 mouth daily. Take with food. atorvastatin (LIPITOR) 40 Take 40 mg by 0 mg tablet mouth daily. clopiDOGrel (PLAVIX) 75 Take 75 mg by 0 mg tablet mouth daily. gabapentin (NEURONTIN) Take 300 mg 0 300 mg capsule by mouth every 8 hours. metoprolol XL (TOPROL XL) Take 25 mg by 0 25 mg extended release mouth daily. tablet omeprazole DR (PRILOSEC) Take 40 mg by 0 40 mg capsule mouth daily before breakfast. oxyCODONE/acetaminophen Take 1 tablet 0 (PERCOCET) 5/325 mg by mouth tablet every 8 hours as needed for Pain 01/20/2021 senna/docusate Take two 28 tablet 0 (SENOKOT-S) 8.6/50 mg tablets by tablet mouth twice daily. 01/20/2021 traMADoL (ULTRAM) 50 mg Take one 30 tablet 0 tablet tablet to two tablets by mouth every 6 hours as needed. zolpidem (AMBIEN) 10 mg Take 10 mg by 0 tablet mouth at bedtime as needed for Sleep. documented as of this encounter Discharge Disposition Code Departure Means Destination Disposition Home Home or Self Care documented in this encounter Plan of Treatment Not on filedocumented as of this encounter Goals Goal Patient Associated Recent Progress Patient-Stat Aut hor Goal Type Problems ed? [facility] (01/07/2021 Yes Chelsie, 10:51 AM CDT) VIJAYA Santamaria [facility] On track (01/07/2021 No Yas Meléndez 10:51 AM CDT) documented as of this encounter Procedures Comments Procedure Name Priority Date/Time Associated Diag nosis CHEST 2 VIEWS Routine 02/10/2021 S/P CABG x 4 12:43 PM CDT documented in this encounter Results * CHEST 2 VIEWS (02/10/2021 12:43 PM CDT) Specimen Impressions Performed At Decreased left pleural effusion and adjacent atelecta sis. [facility] Finalized by Alicja Roque M.D. on 1:13 PM. Dictated by Alicja Roque M.D. on 02/10/2021 1:09 PM. Narrative Performed At CHEST 2 VIEWS [facility] INDICATION: s/p thoracentesis COMPARISON STUDY: February 04, 2021. FINDINGS: Lungs/Pleura: The lung volume is normal . Decreased left pleural effusion with decreased adjacent atelectasis. Scant r ight pleural effusion is also decreased. No pneumothorax. Heart and Mediastinum: The cardiomedias tinal silhouette is stable. Atherosclerotic plaque and thoracic aor ta. Prior median sternotomy and CABG. Skeletal structures: Mild thoracic spon dylosis. Procedure Note Interface, Radiant Results - 02/10/2021 1:16 PM CDT CHEST 2 VIEWS INDICATION: s/p thoracentesis COMPARISON STUDY: February 04, 2021. FINDINGS: Lungs/Pleura: The lung volume is normal. Decreased left pleural effusion with decreased adjacent atelectasis. Scant right pleural effusion is also decreased. No pneumothorax. Heart and Mediastinum: The cardiomediastinal silhouette is stable. Atherosclerotic plaque and thoracic aorta. Prior median sternotomy and CABG. Skeletal structures: Mild thoracic spondylosis. IMPRESSION Decreased left pleural effusion and adjacent atelectasis. Finalized by Alicja Roque M.D. on 02/10/2021 1:13 PM. Dictated by Alicja Roque M.D. on 02/10/2021 1:09 PM. Performing Organization Address City/State/ZIP Code P toma Number [facility] documented in this encounter Visit Diagnoses Diagnosis S/P CABG x 4 Postsurgical aortocoronary bypass statu s documented in this encounter Additional Health Concerns Assessment Noted Time A fall risk assessment has been completed for the pat ient 02/04/2021 10:22 AM CDT documented as of this encounter
--- OUTSIDE RECORDS SUMMARY | 2021-04-05 07:09 | XMS REPORT | Encounter Summary ---
Author Author [facility] Organization [facility] Address Unknown Phone Unavailable Care Team Providers Care Senior Staff Accountant Name Role Phone Nilson [place] [phone] Reason for Visit * Reason Onset Date Comments Provider Discussion About 03/17/2021 Plavix Hold for Teeth Extraction and Colonoscopy procedures Patient Encounter Details Care Team Description Date Type Department Richard Newman RN Provider Discussion About Patient (Plavi x Hold for Teeth Extraction and Colonoscopy procedures ) 03/17/2021 Telephone Cardiology: [facility], [address] [place] [address]. [address], [address] [place] [address] Social History Date Tobacco Use Types Packs/Day Years Used Quit: 01/03/2021 Former Smoker 1 40 Smokeless Tobacco: Never Used Comments: stopped 2 weeks ago Drinks/Week oz/Week Comments Alcohol Use Not Currently Sex Assigned at Date Recorded Male 01/05/2021 10:10 AM CDT documented as of this encounter Functional Status Date of Assessment Functional Status Response 01/02/2021 Does the patient have a hearing impairment: No documented as of this encounter Miscellaneous Notes * Telephone Encounter - Richard Newman RN - 03/17/2021 3:58 PM CDT ----- Message from Lalo Mabry MD sent at 03/17/2021 3:09 PM CDT ----- Regarding: RE: Plavix Yes. 5 days. Then back on clopidogrel through Aug 2021. Stay on ASA indefinit pamela. ----- Message ----- From: Richard Newman, RN Sent: 03/17/2021 1:49 PM CDT To: Lalo Mabry MD Subject: Plavix I spoke to Manav, He has been dealing with Colitis over the past month and they are recommending a Colonoscopy in early March. Ok to come off Plavix no more then 5 days still? Zo yuan. gabriela documented in this encounter Plan of Treatment Not on filedocumented as of this encounter Goals Goal Patient Associated Recent Progress Patient-Stat Aut hor Goal Type Problems ed? Improve [facility] On track (01/07/2021 Yes Chelsie 10:51 AM CDT) VIJAYA Santamaria Improve [facility] On track (01/07/2021 No Yas Meléndez 10:51 AM CDT) documented as of this encounter Visit Diagnoses Not on filedocumented in this encounter Additional Health Concerns Assessment Noted Time A fall risk assessment has been completed for the pat ient 02/04/2021 10:22 AM CDT documented as of this encounter
--- OUTSIDE RECORDS SUMMARY | 2021-04-05 07:09 | XMS REPORT | Encounter Summary ---
Author Author [facility] Organization [facility] Address Unknown Phone Unavailable Care Team Providers Care Tool Rental Technician Name Role Phone Rajinder, Nil[place] [id number] Reason for Referral * Radiology Services (Urgent) Referred By Contact Referred To Contact Status Reason Specialty Diagnoses / Procedures Catarino Machado MD [address] [place] [address] [place] [place] [address] [place] [address] No Auth Needed Radiology Diagnoses S/P CABG x 4 P rocedures IR THORACENTESIS THERAPEUTIC Electronically signed by Catarino Machado MD at Reason for Visit * Radiology Services (Urgent) Referred By Contact Referred To Contact Status Reason Specialty Diagnoses / Procedures Catarino Machado MD [address] [place] [address] [place] [place] [address] [place] [address] No Auth Needed Radiology Diagnoses S/P CABG x 4 P rocedures IR THORACENTESIS THERAPEUTIC Encounter Details Care Team Description Date Type Department Devyn Orantes MD [address] [place] [address] Tran Chadwick, Maddie, RT(R)(),LRT S/P CABG x 4 02/04/2021 [facility] Interventional Radi ology: Encounter Parmjit Gutierrez [facility] [address] [place] [id number] Social History Date Tobacco Use Types Packs/Day [...] / COVID-19? documented as of this encounter Last Filed Vital Signs Reading Time Taken Comments Vital Sign 103/66 02/04/2021 12:24 PM CDT Blood Pressure - - Pulse 36.9 C (98.5 F) 02/04/2021 10:25 AM CDT Temperature - - Respiratory Rate 98% 02/04/2021 12:24 PM CDT Oxygen Saturation - - Inhaled Oxygen Concentration 75.3 kg (166 lb) 02/04/2021 10:25 AM CDT Weight 172.7 cm (5' 7.99") 02/04/2021 10:25 AM CDT Height 25.25 02/04/2021 10:25 AM CDT Body Mass Index documented in this encounter Functional Status Date of Assessment Functional Status Response 01/02/2021 Does the patient have a hearing impairment: No documented as of this encounter Discharge Instructions * Patient Instructions* Ridge Ewing RN - 02/04/2021 10:09 AM CDT Images from the original note were not included. INTERVENTIONAL RADIOLOGY DISCHARGE INSTRUCTIONS THORACENTESIS A thoracentesis is a procedure to remove excess fluid from the space between the chest wall and the lining of the outside of the lungs. A buildup of too much fluid in this space is called a pleural effusion. This procedure may be done t o help with shortness of breath or pain associated with this fluid buildup. Yo ur doctor may order lab tests on the fluid removed if medically indicated. Thi s procedure may also be referred to as a chest tap, pleural tap or pleural fluid aspiration. A thoracentesis is usually done using ultrasoun d guidance. It is uncommon but possible for the lung to collapse during or aft er this procedure. A post-procedure chest x-ray is necessary to confirm that t his has not happened. POST-PROCEDURE ACTIVITY: A responsible adult must drive you home. If you received sedation, you shou ld not drive or operate heavy machinery or do anything that requires concentrati on for at least 24 hours after the procedure. It is recommended that a responsible adult be with you until morning. Avoid strenuous activity and do not lift more than 10 lbs. for one week after the procedure. POST-PROCEDURE SITE CARE: Keep the bandage dry. You may remove it after 24 hours. You may shower in 24 hours, after the bandage is removed. Do not submerge the site underwater for 1 week (no swimming/hot tub, etc.) Be sure your hands are clean when touching near the site. Do not use ointments, creams or powders on the puncture site. DIET/MEDICATIONS: You may resume your previous diet after the radiologist has determined that y ou do not have a pneumothorax (collapsed lung) and you are ready to be discharge d. If you received sedation or narcotic pain medications, avoid any foods or tami erages containing alcohol for at least 24 hours after the procedure. Please see the Medication Reconciliation sheet for instructions regarding res uming you home medications. WHEN TO CALL THE DOCTOR: Call 911 if you develop severe shortness of breath or chest pain. This may indicate a collapsed lung has occurred. Otherwise, call the numbers below if you have the following: Bright red blood has soaked the bandage over your puncture site. You have signs of infection: ? Chills, fever greater than 101?F ? Redness, swelling or warmth at the puncture site ? Pus draining from the puncture site. For any of the above symptoms or for problems or concerns related to the procedu re, call for Monday-Monday 7-5. After-hours and weekends, ple ase call [phone] and ask for the Interventional Wallboard Worker on-rehana destinee documented in this encounter Medications at Time of Discharge [...] Discharge Disposition Code Departure Means Destination Disposition Car Home or Self Care documented in this encounter Progress Notes * Ridge Ewing RN - 02/04/2021 11:47 AM CDT Chest xray reviewed by Dr Orantes. Patient is ok to discharge home. * Merlin Padilla RN - 02/04/2021 11:00 AM CDT Interventional Radiology Outpatient Scheduling Checklist 1. Name of Procedure(s): Left Thoracentsis 2. Date of Procedure: 02/04/2021 3. Arrival Time: 1000 4. Procedure Time: 1100 5. Correct Procedural Room Assignment: [facility] Rad Room #1 6. Blood Thinners Triaged and instructed per protocol: Y/N/NA: Patient camacho whitehead Plavix, OK to continue per Protocol. Confirmed accurate instructions sent to patient: Y/N: NO 7. Procedure Order Verified: Y/N: Yes 9. Patient instructed to have a route delivery service driver: Y/N/NA: Yes 10. Patient instructed on NPO status: Y/N/NA: NO Restrictions. Confirmed accurate instructions sent to patient: Y/N: NO 11. Specimen needed: Y/N/NA: Yes Verified Order placed: Y/N: Yes 12. Allergies Verified: Y/N: Yes 13. Is there an Iodine Allergy: Y/N: No Does the Procedure Require contrast: Y/N: NO If so, was the IR- Contrast Allergy Pre-Procedure Medication protocol ordered: Y /NA: NA 14. Does the patient have labs according to IR Pre-procedure Laboratory Paramet er policy: Y/N/NA: Yes If No, was the patient instructed to obtain labs prior to procedure: Y/N/NA: NA 15. Will the patient need to be admitted or have a possible admission: Y/N: No If yes, confirmed accurate instructions sent to patient: Y/N/NA: NA 16. Patient States Understanding: Y/N: Yes 17. History of LAYA: Y/N: No If yes, confirm request to bring CPAP sent to patient: Y/N/NA: NA 18. Patient declines electronic procedure instructions: Y/N: YES documented in this encounter H&P Notes * Bruno Lugo APRN-LUIS - 02/04/2021 10:17 AM CDT Pre Procedure History and Physical/Sedation Plan-OP Procedure Date: 02/04/2021 Planned Procedure(s): US guided left thoracentesis Indication for exam: Plural effusion Chief Complaint: Plural effusion post CABG History of Present Illness: Manav Mcpherson is a 61 y.o. male. 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 S/P CABG x 4 01/12/2021 Coronary artery disease involving [place] coronary artery 01/11/[address] elevation myocardial infarction (STEMI) 01/11/2021 Dental caries 01/11/2021 Hyponatremia 01/11/2021 Carotid artery stenosis, asymptomatic, left 01/11/2021 Hypokalemia 01/11/2021 Bradycardia 01/11/2021 Acute combined systolic and diastolic CHF, NYHA class 2 (HCC) 01/11/2021 Other chronic pain 01/11/2021 Acute blood loss anemia 01/11/2021 Mixed hyperlipidemia 01/04/2021 Tobacco dependence 01/04/2021 Medical History: Diagnosis Date Carotid artery stenosis, asymptomatic, left 01/11/202112/2020: Moderate calcified atherosclerosis at the left carotid bulb and proxim al ICA resulting in approximately 50% visible stenosis of the upper carotid bul b and proximal ICA Coronary artery disease Coronary artery disease involving stockbridge coronary artery 01/11/2021 Dental caries 01/11/[address] elevation myocardial infarction (STEMI) 01/11/2021 Surgical History: Procedure Laterality Date ANGIOGRAPHY CORONARY ARTERY WITH LEFT HEART CATHETERIZATION N/A 01/04/2021 Performed by Cath, Physician at [facility] PERCUTANEOUS CORONARY STENT PLACEMENT WITH ANGIOPLASTY N/A 01/04/2021 Performed by Cath, Physician at [facility] CABG x4 , LUDIVINA, EVH N/A 01/11/2021 Performed by Catarino Machado MD at [facility] CORONARY STENT PLACEMENT Medications Prior to Admission Medication Sig Dispense Refill Last Dose acetaminophen (TYLENOL) 325 mg tablet Take 325 mg by mouth every 4 hours as needed for Pain. albuterol sulfate (PROAIR HFA) 90 mcg/actuation HFA aerosol inhaler Inhale 2 puffs by mouth into the lungs every 6 hours as needed for Wheezing or Shortness of Breath. Shake well before use. >1 Month ALPRAZolam (XANAX) 1 mg tablet Take 1 mg by mouth twice daily as needed for Anxiety. 02/03/2021 aspirin EC 81 mg tablet Take 81 mg by mouth daily. Take with food. 02/05/20 atorvastatin (LIPITOR) 40 mg tablet Take 40 mg by mouth daily. 02/04/2021 clopiDOGrel (PLAVIX) 75 mg tablet Take 75 mg by mouth daily. 02/04/2021 gabapentin (NEURONTIN) 300 mg capsule Take 300 mg by mouth every 8 hours. 02/04/2021 metoprolol XL (TOPROL XL) 25 mg extended release tablet Take 25 mg by mouth daily. 02/04/[address] (PRILOSEC) 40 mg capsule Take 40 mg by mouth daily before delaney kfast. 02/04/2021 oxyCODONE/acetaminophen (PERCOCET) 5/325 mg tablet Take 1 tablet by mouth ev princess 8 hours as needed for Pain Past Week senna/docusate (SENOKOT-S) 8.6/50 mg tablet Take two tablets by mouth twice daily. 28 tablet 0 02/04/2021 traMADoL (ULTRAM) 50 mg tablet Take one tablet to two tablets by mouth every 6 hours as needed. 30 tablet 0 02/03/2021 zolpidem (AMBIEN) 10 mg tablet Take 10 mg by mouth at bedtime as needed for Sleep. 02/03/2021 No Known Allergies Social History: Social History Tobacco Use Smoking status: Former Smoker Packs/day: 1.00 Years: 40.00 Pack years: 40.00 Quit date: 01/03/2021 Years since quittin.0 Smokeless tobacco: Never Used Tobacco comment: stopped 2 weeks ago Substance Use Topics Alcohol use: Not Currently History reviewed. No pertinent family history. Review of Systems All other systems reviewed and are negative. Previous Anesthetic/Sedation History: Reviewed Code Status: Prior Physical Exam: Vital Signs: Last Filed In 24 Hours Vital Signs: 24 Hour Range BP: 95/65 (02/04 1145) Temp: 36.9 C (98.5 F) (02/04 1025) Pulse: 56 (02/03 1411) Respirations: 16 PER MINUTE (02/04 1145) SpO2: 98 % (02/04 1145) SpO2 Pulse: 53 (02/04 1145) Height: 172.7 cm (67.99") (02/04 1025) BP: (75-140)/(59-91) Temp: [36.8 C (98.2 F)-36.9 C (98.5 F)] Pulse: [56] Respirations: [16 PER MINUTE-18 PER MINUTE] SpO2: [95 %-98 %] General appearance: alert and no distress Neurologic: Grossly normal, at baseline Lungs: Nonlabored with normal effort Abdomen: soft, non-tender. Extremities: extremities normal, Airway: airway assessment performed Mallampati II (soft palate, uvula, fauces visible) Anesthesia Classification: ASA III (A patient with a severe systemic disease th at limits activity, but is not incapacitating) Pre procedure anxiolysis plan: NA Sedation/Medication Plan: Lidocaine Personal history of sedation complications: Denies adverse event. Family history of sedation complications: Denies adverse event. Medications for Reversal: None Discussion/Reviews: Physician has discussed risks and alternatives of this type of sedation and above planned procedures with patient NPO Status: Acceptable Status: N/A Lab/Radiology/Other Diagnostic Tests: Labs: Hematology: Lab Results Component Value Date HGB 9.6 01/20/2021 HCT 28.0 01/20/2021 PLTCT 329 01/20/2021 WBC 9.9 01/20/2021 NEUT 52 01/11/2021 ANC 3.54 01/11/2021 LYMPH 36 01/03/2021 ALC 2.31 01/11/2021 KELSEY 9 01/11/2021 AMC 0.64 01/11/2021 ABC 0.06 01/11/2021 MCV 90.5 01/20/2021 MCHC 34.4 01/20/2021 MPV 6.6 01/20/2021 RDW 15.3 01/20/2021 , Coagulation: Lab Results Component Value Date PTT 29.5 01/11/2021 INR 1.3 01/11/2021 and General Chemistry: Lab Results Component Value Date NA 128 01/20/2021 K 3.6 01/20/2021 CL 92 01/20/2021 GAP 6 01/20/2021 BUN 14 01/20/2021 CR 0.84 01/20/2021 GLU 143 01/20/2021 CA 8.5 01/20/2021 ALBUMIN 4.2 01/11/2021 LACTIC 1.3 01/11/2021 OBSCA 1.14 01/11/2021 MG 2.1 01/16/2021 TOTBILI 0.9 01/11/2021 Bruno Lugo APRN-PREDICTIVE MAINTENANCE TECHNICIAN Pager [phone] documented in this encounter Miscellaneous Notes * Procedures (Immed Post or Bedside) - Devyn Orantes MD - 02/04/2021 11:21 AM CDT Immediate Post Procedure Note Date: 02/04/2021 Attending Physician: Devyn Orantes MD Procedure(s): thoracentesis Indications: Left pleural effusion Findings: Blood tinged fluid Anesthesia: local Sedation/Medication Plan: Lidocaine Time out performed: Consent obtained, correct patient verified, correct procedur e verified, correct site verified, patient marked as necessary. Estimated Blood Loss: None/Negligible Specimen(s) Removed/Disposition: Yes, sent to pathology Complications: None Comments: Tolerated well Devyn Orantes MD * Patient Education - Merlin Padilla RN - 02/04/2021 11:00 AM CDT Dear Mr Mcpherson, Thank you for choosing [facility] Interventional Rad iology for your procedure. Your appointment information is listed below: Appointment Date: 02/04/2021 Appointment Time: 11AM Arrival Time: 10AM Location: [facility]: [address] [place] [address] Parking: available in the front of the building INTERVENTIONAL RADIOLOGY PRE-PROCEDURE INSTRUCTIONS LOCAL You are scheduled for a procedure in Interventional Radiology. Please follow sal instructions and any direction from your Primary Care/Managing Physician. I f you have questions about your procedure or need to reschedule please call . Medication Instructions: Continue scheduled medication, including your Plavix. Diet Instructions: Maintain regular diet with no restrictions. Day of Exam Instructions: 1. Bathe or shower with an antibacterial soap prior to your appointment. 2. Bring a list of your current medications and the dosages. 3. Wear comfortable clothing and leave valuables at home. 4. Arrive (1) hour prior to your appointment. This time will be spent registeri ng, interviewing, assessing, educating, and preparing you for the test. You will be with us anywhere from 30 minutes to 2 hours after your exam depe nding on your procedure. 5. Depending on the procedure and as instructed by the nurse a responsible adult may be required to drive you home (no Uber, taxis or buses are allowed). If a d river is required and you do not have one we will be unable to perform your pro cedure. 6. The nurse will give you discharge instructions about your care and activities after the procedure. documented in this encounter Plan of Treatment Not on filedocumented as of this encounter Goals Goal Patient Associated Recent Progress Patient-Stat Aut hor Goal Type Problems ed? [facility] On track (01/07/2021 Yes Chelsie 10:51 AM CDT) VIJAYA Santamaria [facility] On track (01/07/2021 No Yas Meléndez 10:51 AM CDT) documented as of this encounter Procedures Comments Procedure Name Priority Date/Time Associated Diag nosis CHEST IMMEDIATE POST Routine 02/04/2021 PROCEDURE INSP/EXP 11:35 AM CDT IR THORACENTESIS ARABELLA 02/04/2021 S/P CABG x 4 THERAPEUTIC 11:34 AM CDT HC TRIGLYCERIDE-FLUID Routine 02/04/2021 S/P CABG x 4 11:21 AM CDT documented in this encounter Results * CHEST IMMEDIATE POST PROCEDURE INSP/EXP (02/04/2021 11:35 AM CDT) Specimen Impressions Performed At 1. Slight decrease in size of the small left pleural effusion and adjacent [facility] atelectasis following thoracentesis. No pneumothorax is visualized. Finalized by Puneet Moreland M.D. on 1 2:23 PM. Dictated by Puneet Moreland M.D. on 02/04/2021 2:22 PM. Narrative Performed At CHEST X-RAY INSPIRATION/EXPIRATION [facility] INDICATION: post thora. Left pleural ef fusion status post thoracentesis COMPARISON STUDY: Chest CT February 13. FINDINGS: Lungs/Pleura: Slight decrease in size o f the small left-sided pleural effusion with adjacent atelectasis. Miniscule ri ght pleural effusion has not significantly changed. No pneumothorax is visualized. Heart and Mediastinum: Mild cardiomegal y status post median sternotomy and CABG. Performing Organization Address City/State/ZIP Code P toma Number [facility] * IR THORACENTESIS THERAPEUTIC (02/04/2021 11:34 AM CDT) Specimen Impressions Performed At 1. Successful ultrasound guided diagnostic and therap eutic thoracentesis. [facility] RESULTS Finalized by Devyn Orantes M.D. on 021 12:25 PM. Dictated by Devyn Orantes M.D. on 02/04/2021 12:25 PM. Narrative Performed At Ultrasound-guided diagnostic and therapeutic thoracen tesis [facility] RESULTS CLINICAL INDICATION: Left pleural effus ion MEDICATIONS: See nursing log for com plete details; the drugs utilized were: Lidocaine SCIENTIFIC SPECIALIST: Devyn Orantes M.D. The risks, benefits, and alternatives t o the procedure and sedation were explained, and written informed consent obtained. Ultrasound was used to locate the large st pocket of intrapleural fluid in the left hemithorax. The skin overlying the site was marked, and then prepped and draped in sterile fashion. The site was anesthetized with local injection of 2% lidocaine. A small bore thoracentesis n eedle and catheter were inserted into the posterior chest at the marked site, and after several mL of pleural fluid were withdrawn, the catheter was inserted an d needle withdrawn. A total of 1000 mL of pleural fluid was drained, some of whic h was sent for analysis. The catheter was removed and an occlusive, sterile d ressing was applied. The patient tolerated the procedure well and there were no immediate complications. Patient was discharged to the recovery area in stable condition. Immediate and 1 hour follow up chest radiographs were ordere d. FINDINGS: Free intrathoracic fluid de monstrated on ultrasound. Procedure Note Interface, Radiant Results - 02/04/2021 12:28 PM CDT Ultrasound-guided diagnostic and therapeutic thoracentesis CLINICAL INDICATION: Left pleural effusion MEDICATIONS: See nursing log for complete details; the drugs utilized were: Lidocaine SCIENTIFIC SPECIALIST: Devyn Orantes M.D. The risks, benefits, and alternatives to the procedure and sedation were explained, and written informed consent obtained. Ultrasound was used to locate the largest pocket of intrapleural fluid in the left hemithorax. The skin overlying the site was marked, and then prepped and draped in sterile fashion. The site was anesthetized with local injection of 2% lidocaine. A small bore thoracentesis needle and catheter were inserted into the posterior chest at the marked site, and after several mL of pleural fluid were withdrawn, the catheter was inserted and needle withdrawn. A total of 1000 mL of pleural fluid was drained, some of which was sent for analysis. The catheter was removed and an occlusive, sterile dressing was applied. The patient tolerated the procedure well and there were no immediate complications. Patient was discharged to the recovery area in stable condition. Immediate and 1 hour follow up chest radiographs were ordered. FINDINGS: Free intrathoracic fluid demonstrated on ultrasound. IMPRESSION 1. Successful ultrasound guided diagnost ic and therapeutic thoracentesis. Finalized by Devyn Orantes M.D. on 02/04/2021 12:25 PM. Dictated by Devyn Orantes M.D. on 02/04/2021 12:25 PM. Performing Organization Address City/State/ZIP Code P toma Number [facility] RESULTS * PLEURAL FLUID TRIGLYCERIDES (02/04/2021 11:21 AM CDT) Pleural Fluid 27 mg/dL [facility] Triglycerides Comment: Triglycerides >110 mg/dL is suggestive of a chylothorax. Triglycerides <50 mg/dL is suggestive of pseudochylothorax. Specimen Pleural Fluid Performing Organization Address City/State/ZIP Code P toma Number [facility] [address] [place] [address] documented in this encounter Visit Diagnoses Diagnosis S/P CABG x 4 Postsurgical aortocoronary bypass statu s documented in this encounter Additional Health Concerns Assessment Noted Time A fall risk assessment has been completed for the pat ient 02/04/2021 10:22 AM CDT documented as of this encounter
--- OUTSIDE RECORDS SUMMARY | 2021-04-05 07:09 | XMS REPORT | Clinical Summary ---
Author Author [facility] Organization [facility] Address Unknown Phone Unavailable Care Team Providers Care Transfer Worker Name Role Phone Self, [place] [id number] Source Comments Some departments are not documenting in the electronic medical record. If you d o not see the information that you expected, contact Release of Information in [facility] [employer] Information Management department at [phone] for further assistan ce in locating additional records.[facility] Allergies No Known Active Allergies Medications End Date Status Medication Sig Dispensed Refills Start Date Active atorvastatin (LIPITOR) 40 Take 40 mg by 0 mg tablet mouth daily. Active ALPRAZolam (XANAX) 1 mg Take 1 mg by 0 tablet mouth twice daily as needed for Anxiety. Active zolpidem (AMBIEN) 10 mg Take 10 mg by 0 tablet mouth at bedtime as needed for Sleep. Active clopiDOGrel (PLAVIX) 75 Take 75 mg by 0 mg tablet mouth daily. Active aspirin EC 81 mg tablet Take 81 mg by 0 mouth daily. Take with food. Active metoprolol XL (TOPROL XL) Take 25 mg by 0 25 mg extended release mouth daily. tablet Active oxyCODONE/acetaminophen Take 1 tablet 0 (PERCOCET) 5/325 mg by mouth tablet every 8 hours as needed for Pain Active omeprazole DR (PRILOSEC) Take 40 mg by 0 40 mg capsule mouth daily before breakfast. Active gabapentin (NEURONTIN) Take 300 mg 0 300 mg capsule by mouth every 8 hours. Active acetaminophen (TYLENOL) Take 325 mg 0 325 mg tablet by mouth every 4 hours as needed for Pain. Active albuterol sulfate (PROAIR Inhale 2 0 HFA) 90 mcg/actuation HFA puffs by aerosol inhaler mouth into the lungs every 6 hours as needed for Wheezing or Shortness of Breath. Shake well before use. Active senna/docusate Take two 28 tablet 0 (SENOKOT-S) 8.6/50 mg tablets by 1 tablet mouth twice daily. Active traMADoL (ULTRAM) 50 mg Take one 30 tablet 0 tablet tablet to two 1 tablets by mouth every 6 hours as needed. Active Problems Problem Noted Date Chylous effusion 01/20/2021 S/P CABG x 4 01/12/2021 Coronary artery disease involving red devil coronary art princess 01/11/[address] elevation myocardial infarction (STEMI) 01/11/2021 Dental caries 01/11/2021 Hyponatremia 01/11/2021 Carotid artery stenosis, asymptomatic, left 01/12/20 Overview: Formatting of this note might be differ ent from the original. 12/2020: Moderate calcified atherosclero sis at the left carotid bulb and proximal ICA resulting in approximately 50% visible stenosis of the upper carotid bulb and proximal ICA Hypokalemia 01/11/2021 Bradycardia 01/11/2021 Acute combined systolic and diastolic CHF, NYHA class 2 01/11/2021 Other chronic pain 01/11/2021 Acute blood loss anemia 01/11/2021 Mixed hyperlipidemia 01/04/2021 Tobacco dependence 01/04/2021 Resolved Problems Problem Noted Date Resolved Date Paroxysmal atrial fibrillation 01/14/2021 021 Unstable angina 01/11/2021 01/14/2021 On mechanically assisted ventilation 01/11/2021 0 01/14/2021 Thrombocytopenia 01/11/2021 01/20/2021 Coagulopathy 01/11/2021 01/20/2021 Vasogenic shock 01/11/2021 01/14/2021 Stress hyperglycemia 01/11/2021 01/20/2021 Chest pain 01/02/2021 01/20/2021 Encounters Care Team Description Date Type Specialty Richard Newman RN Provider Discussion About Patient (Plavi x Hold for Teeth Extraction and Colonoscopy procedures ) 03/17/2021 Telephone Cardiology Catarino Machado MD Chylous effusion (Primary Dx) 02/10/2021 Office Visit Cardiothoracic Surg princessCatarino Torres MD 02/10/2021 Hospital Radiology Encounter 02/10/2021 Travel Devyn Orantes MD Birzer, Annie Baze, Amy, RT(R)(),LRT S/P CABG x 4 02/04/2021 Hospital Radiology Encounter Bel Lee, RN S/P CABG x 4 (Primary Dx) 02/04/2021 Orders Only Cardiothoracic Surg princess 02/04/2021 Travel Catarino Machado MD 02/03/2021 Hospital Radiology Encounter Catarino Machado MD S/P CABG x 4 (Primary Dx) 02/03/2021 Office Visit Cardiothoracic Surg Stephie Ramírez PA-C 02/03/2021 Hospital Radiology Encounter 02/03/2021 Travel Melvi Vieira MD Blake Laura, 01/11/2021 Anesthesia Event Catarino Machado MD CABG x4 , [facility]UDIV[facility], [facility]H 01/11/2021 Surgery Darryl Ojedaic, [facility] 01/08/2021 Anesthesia Event Ursula Pierce PA-C 01/05/2021 Hospital Radiology Encounter Cath, Physician ANGIOGRAPHY CORONARY ARTERY WITH LEFT HE ART CATHETERIZATION 01/04/2021 Surgery Cardiology Yesi, MD Doretha Mendieta, MD Haile Rodriguez, MD Fatuma Caldwell, Hiram Mejia, Sheldon Cortés MD Dobler, MD Carter Sanchez Peter S, MD S/P CABG x 4 01/02/2021 Hospital - Encounter 01/20/2021 from Last 3 Months Immunizations Name Administration Dates Next Due COVID-19 (MODERNA), mRNA 12/23/2020 vacc, 100 mcg/0.5 mL (PF) Flu Vaccine Quadrivalent 05/19/2020 Recombinant =>18 YO PF Pneumococcal Vaccine 04/19/2018, 02/06/2017, (23-Laisha Adult) Pneumococcal 04/19/2018 Vaccine(13-[facility]isha Peds/immunocompromised adult) Zoster Vaccine 04/19/2018 Recombinant, Adjuvanted (shingles) IM (vial 2 of 2)(SHINGRIX) Surgical History Surgery Date Site/Laterality Comments CORONARY STENT PLACEMENT CORONARY ARTERY BYPASS 01/11/2021 N/A CABG x4 , LUDIV[facility], EVH performed by Catarino Machado GRAFT MD at [facility] Medical History Medical History Date Comments Coronary artery disease Coronary artery disease involving 01/11/2021 red devil coronary artery History of ST elevation myocardial 01/11/2021 infarction (STEMI) Dental caries 01/11/2021 Carotid artery stenosis, asymptomatic, 01/11/202112/2020: Moderate calcified atherosclerosis at the left left carotid bulb and prox imal ICA resulting in approximately 50% visible stenosis of t he upper carotid bulb and proximal ICA Social History Date Tobacco Use Types Packs/Day Years Used Quit: 01/03/2021 Former Smoker 1 40 Smokeless Tobacco: Never Used Comments: stopped 2 weeks ago Drinks/Week oz/Week Comments Alcohol Use Not Currently Sex Assigned at Date Recorded Male 01/05/2021 10:10 AM CDT Last Filed Vital Signs Reading Time Taken Comments Vital Sign 110/68 02/10/2021 1:25 PM CDT Blood Pressure 56 02/10/2021 1:25 PM CDT Pulse 36.2 C (97.2 F) 02/10/2021 1:25 PM CDT Temperature 20 02/10/2021 1:25 PM CDT Respiratory Rate 97% 02/10/2021 1:25 PM CDT Oxygen Saturation - - Inhaled Oxygen Concentration 75.3 kg (166 lb) 02/10/2021 1:25 PM CDT Weight 172.7 cm (5' 8") 02/10/2021 1:25 PM CDT Height 25.24 02/10/2021 1:25 PM CDT Body Mass Index Plan of Treatment Health Maintenance Due Date Last Done Comments MEDICARE ANNUAL WELLNESS 1960 VISIT HIV SCREENING 1973 DTAP/TDAP VACCINES (1 - 01/19/1976 Tdap) HEPATITIS C SCREENING 01/19/1976 PHYSICAL (COMPREHENSIVE) 01/19/1976 EXAM COLORECTAL CANCER 01/19/2008 SCREENING SHINGLES RECOMBINANT 06/14/2018 04/19/2018 VACCINE (2 of 2) COVID-19 VACCINE (2 - 01/20/2021 12/23/2020 Moderna 2-dose series) INFLUENZA VACCINE 05/28/2021 05/19/2020 Goals Goal Patient Associated Recent Progress Patient-Stat Aut hor Goal Type Problems ed? [facility] On track (01/07/2021 Yes Chelsie, 10:51 AM CDT) VIJAYA Santamaria [facility] On track (01/07/2021 No Yas Meléndez 10:51 AM CDT) Procedures Comments Procedure Name Priority Date/Time Associated Diag nosis CHEST 2 VIEWS Routine 02/10/2021 S/P CABG x 4 12:43 PM CDT CHEST IMMEDIATE POST Routine 02/04/2021 PROCEDURE INSP/EXP 11:35 AM CDT IR THORACENTESIS ARABELLA 02/04/2021 S/P CABG x 4 THERAPEUTIC 11:34 AM CDT HC TRIGLYCERIDE-FLUID Routine 02/04/2021 S/P CABG x 4 11:[address] CHEST WO CONTRAST Routine 02/03/2021 S/P CABG x 4 3:21 PM CDT CHEST 2 VIEWS Routine 02/03/2021 S/P CABG x 4 1:49 PM CDT CHEST 2 VIEWS ARABELLA 01/20/2021 2:37 PM CDT CHEST SINGLE VIEW STAT 01/20/2021 10:50 AM CDT HC BASIC METABOLIC PANEL Routine 01/20/2021 3:53 AM CDT HC CBC,AUTOMATED Routine 01/20/2021 3:53 AM CDT CHEST 2 VIEWS ARABELLA 01/19/2021 10:26 AM CDT HC BASIC METABOLIC PANEL Routine 01/19/2021 4:47 AM CDT HC CBC,AUTOMATED Routine 01/19/2021 4:47 AM CDT CHEST SINGLE VIEW STAT 2021 7:28 AM CDT CONSULT IV THERAPY TEAM Routine 01/16/2021 6:52 PM CDT HC MAGNESIUM Routine 01/16/2021 5:23 AM CDT HC BASIC METABOLIC PANEL Routine 01/16/2021 5:23 AM CDT HC CBC,AUTOMATED Routine 01/16/2021 5:23 AM CDT HC UREA NITROGEN-URINE Routine 01/15/2021 6:45 PM CDT HC CREATININE-URINE Routine 01/15/2021 6:45 PM CDT HC SODIUM-URINE Routine 01/15/2021 6:45 PM CDT BASIC METABOLIC PANEL STAT 01/15/2021 1:50 PM CDT POC GLUCOSE 01/15/2021 8:35 AM CDT HC TRIGLYCERIDE-FLUID Routine 01/15/2021 7:20 AM CDT CHEST SINGLE VIEW STAT 01/15/2021 6:54 AM CDT HC MAGNESIUM Routine 01/15/2021 2:55 AM CDT HC BASIC METABOLIC PANEL Routine 01/15/2021 2:55 AM CDT HC CBC,AUTOMATED Routine 01/15/2021 2:55 AM CDT POC GLUCOSE 01/14/2021 9:07 PM CDT POC GLUCOSE 01/14/2021 4:44 PM CDT POC GLUCOSE 01/14/2021 11:12 AM CDT POC GLUCOSE 01/14/2021 6:47 AM CDT HC CBC,AUTOMATED STAT 01/14/2021 5:50 AM CDT HC MAGNESIUM Routine 01/14/2021 4:45 AM CDT HC BASIC METABOLIC PANEL Routine 01/14/2021 4:45 AM CDT CHEST SINGLE VIEW Routine 01/14/2021 4:45 AM CDT POC GLUCOSE 01/13/2021 9:25 PM CDT HC PHOSPHOROUS, SERUM 01/13/2021 5:30 PM CDT HC MAGNESIUM 01/13/2021 5:30 PM CDT BASIC METABOLIC PANEL STAT 01/13/2021 5:30 PM CDT CHEST SINGLE VIEW STAT 01/13/2021 5:25 PM CDT POC GLUCOSE 01/13/2021 5:04 PM CDT POC GLUCOSE 01/13/2021 11:04 AM CDT POC GLUCOSE 01/13/2021 6:51 AM CDT CHEST SINGLE VIEW Routine 01/13/2021 4:58 AM CDT HC MAGNESIUM Routine 01/13/2021 3:05 AM CDT HC BASIC METABOLIC PANEL Routine 01/13/2021 3:05 AM CDT HC CBC,AUTOMATED Routine 01/13/2021 3:05 AM CDT POC GLUCOSE 01/12/2021 9:50 PM CDT POC GLUCOSE 01/12/2021 5:11 PM CDT BASIC METABOLIC PANEL 01/12/2021 12:30 PM CDT CBC STAT 01/12/2021 12:30 PM CDT POC GLUCOSE 01/12/2021 12:28 PM CDT TRANSFUSE CRYOPRECIPITATE STAT 01/12/2021 9:24 AM CDT TRANSFUSE RBC'S STAT 01/12/2021 9:23 AM CDT POC GLUCOSE 01/12/2021 8:06 AM CDT POC GLUCOSE 01/12/2021 6:54 AM CDT POC GLUCOSE 01/12/2021 5:59 AM CDT POC GLUCOSE 01/12/2021 5:08 AM CDT CHEST SINGLE VIEW Routine 01/12/2021 4:30 AM CDT POC GLUCOSE 01/12/2021 4:08 AM CDT ECG 12-LEAD Routine 01/12/2021 4:00 AM CDT HC PHOSPHOROUS, SERUM Add on 01/12/2021 3:10 AM CDT HC MAGNESIUM Routine 01/12/2021 3:10 AM CDT HC BASIC METABOLIC PANEL Routine 01/12/2021 3:10 AM CDT HC CBC,AUTOMATED Routine 01/12/2021 3:10 AM CDT HC BLOOD Routine 01/12/2021 GASES;(CALCULATED 02) 2:52 AM CDT POC GLUCOSE 01/12/2021 2:09 AM CDT HC SODIUM, POC 01/12/2021 1:45 AM CDT HC POTASSIUM, POC 01/12/2021 1:45 AM CDT HC HEMATOCRIT POC 01/12/2021 1:45 AM CDT HC BLOOD GAS, POC 01/12/2021 1:45 AM CDT POC GLUCOSE 01/12/2021 12:06 AM CDT POC GLUCOSE 01/11/2021 11:02 PM CDT HC LACTIC ACID - BG Add on 01/11/2021 SYRINGE 10:20 PM CDT HC CALCIUM IONIZED STAT 01/11/2021 10:20 PM CDT HC BLOOD Routine 01/11/2021 GASES;(CALCULATED 02) 10:20 PM CDT POC GLUCOSE 01/11/2021 10:05 PM CDT HC LACTIC ACID(LACTATE) STAT 01/11/2021 10:00 PM CDT BASIC METABOLIC PANEL STAT 01/11/2021 10:00 PM CDT CBC STAT 01/11/2021 10:00 PM CDT POC GLUCOSE 01/11/2021 9:00 PM CDT PREPARE CRYOPRECIPITATE STAT 01/11/2021 8:35 PM CDT POC GLUCOSE 01/11/2021 8:13 PM CDT TRANSFUSE PLASMA (FFP) STAT 01/11/2021 7:23 PM CDT TRANSFUSE APHERESIS STAT 01/11/2021 PLATELETS 6:56 PM CDT HC TEG W KAOLIN R Routine 01/11/2021 ACTIVATED CLOTTING TIME 6:35 PM CDT HC FIBRINOGEN Add on 01/11/2021 6:35 PM CDT POTASSIUM Routine 01/11/2021 6:35 PM CDT HC MAGNESIUM Routine 01/11/2021 6:35 PM CDT HC PT(INR) STAT 01/11/2021 6:35 PM CDT PREPARE APHERESIS STAT 01/11/2021 PLATELETS 6:31 PM CDT TRANSFUSE APHERESIS STAT 01/11/2021 PLATELETS 5:58 PM CDT TRANSFUSE PLASMA (FFP) STAT 01/11/2021 5:56 PM CDT POC GLUCOSE 01/11/2021 5:55 PM CDT PREPARE PLASMA (FFP) STAT 01/11/2021 5:20 PM CDT PREPARE APHERESIS ARABELLA 01/11/2021 PLATELETS 5:20 PM CDT POC GLUCOSE 01/11/2021 4:58 PM CDT LINE PLCMT 1V CXR STAT 01/11/2021 3:53 PM CDT POC GLUCOSE 01/11/2021 3:49 PM CDT HC SODIUM, POC 01/11/2021 3:37 PM CDT HC POTASSIUM, POC 01/11/2021 3:37 PM CDT HC HEMATOCRIT POC 01/11/2021 3:37 PM CDT HC BLOOD GAS, POC 01/11/2021 3:37 PM CDT HC MAGNESIUM STAT 01/11/2021 3:15 PM CDT HC PTT(APTT) STAT 01/11/2021 3:15 PM CDT HC PT(INR) STAT 01/11/2021 3:15 PM CDT HC BASIC METABOLIC PANEL STAT 01/11/2021 3:15 PM CDT HC CBC,AUTOMATED 91 STAT 01/11/2021 3:15 PM CDT ECG 12-LEAD STAT 01/11/2021 3:11 PM CDT HC IONIZED CA, POC 01/11/2021 1:44 PM CDT HC SODIUM, POC 01/11/2021 1:44 PM CDT HC POTASSIUM, POC 01/11/2021 1:44 PM CDT HC HEMATOCRIT POC 01/11/2021 1:44 PM CDT HC BLOOD GAS, POC 01/11/2021 1:44 PM CDT ACTIVATED CLOTTING TIME 01/11/2021 HMS 1:42 PM CDT POC GLUCOSE 01/11/2021 1:41 PM CDT HC IONIZED CA, POC 01/11/2021 1:11 PM CDT HC SODIUM, POC 01/11/2021 1:11 PM CDT HC POTASSIUM, POC 01/11/2021 1:11 PM CDT HC HEMATOCRIT POC 01/11/2021 1:11 PM CDT HC BLOOD GAS, POC 01/11/2021 1:11 PM CDT ACTIVATED CLOTTING TIME 01/11/2021 HMS 1:10 PM CDT POC GLUCOSE 01/11/2021 1:08 PM CDT HC IONIZED CA, POC 01/11/2021 12:35 PM CDT HC SODIUM, POC 01/11/2021 12:35 PM CDT HC POTASSIUM, POC 01/11/2021 12:35 PM CDT HC HEMATOCRIT POC 01/11/2021 12:35 PM CDT HC BLOOD GAS, POC 01/11/2021 12:35 PM CDT ACTIVATED CLOTTING TIME 01/11/2021 HMS 12:34 PM CDT POC GLUCOSE 01/11/2021 12:33 PM CDT HC IONIZED CA, POC 01/11/2021 12:03 PM CDT HC SODIUM, POC 01/11/2021 12:03 PM CDT HC POTASSIUM, POC 01/11/2021 12:03 PM CDT HC HEMATOCRIT POC 01/11/2021 12:03 PM CDT HC BLOOD GAS, POC 01/11/2021 12:03 PM CDT ACTIVATED CLOTTING TIME 01/11/2021 HMS 12:02 PM CDT POC GLUCOSE 01/11/2021 12:00 PM CDT ACTIVATED CLOTTING TIME 01/11/2021 HMS 11:09 AM CDT POC GLUCOSE 01/11/2021 11:07 AM CDT ANESTHESIA Routine 01/11/2021 TRANSEESOPHAGEAL 10:52 AM CDT ECHOCARDIOGRAM ANESTHESIA PULMONARY Routine 01/11/2021 ARTERY CATHETER INSERTION 10:25 AM CDT ANESTHESIA CENTRAL LINE Routine 01/11/2021 INSERTION 10:25 AM CDT ANESTHESIA ARTERIAL LINE Routine 01/11/2021 INSERTION 10:18 AM CDT HC IONIZED CA, POC 01/11/2021 9:37 AM CDT HC SODIUM, POC 01/11/2021 9:37 AM CDT HC POTASSIUM, POC 01/11/2021 9:37 AM CDT HC HEMATOCRIT POC 01/11/2021 9:37 AM CDT HC BLOOD GAS, POC 01/11/2021 9:37 AM CDT BASELINE ACTIVATED 01/11/2021 CLOTTING TIME HMS 9:36 AM CDT POC GLUCOSE 01/11/2021 9:34 AM CDT CORONARY ARTERY BYPASS 01/11/2021 Stable angina (HCC) WITH ARTERIAL GRAFT - 3 8:51 AM CDT Coronary jacob ry disease GRAFTS of red devil artery of red devil heart with stable angina pectoris (HCC) HC PTT(APTT) Routine 01/11/2021 5:00 AM CDT HC COMPREHENSIVE Routine 01/11/2021 METABOLIC PANEL 5:00 AM CDT HC CBC W/ AUTOMATED DIFF Routine 01/11/2021 5:00 AM CDT HC MAGNESIUM Routine 01/11/2021 5:00 AM CDT CONSULT IV THERAPY TEAM Routine 01/10/2021 7:57 PM CDT HC COMPREHENSIVE Routine 01/10/2021 METABOLIC PANEL 5:43 AM CDT HC CBC W/ AUTOMATED DIFF Routine 01/10/2021 5:43 AM CDT HC MAGNESIUM Routine 01/10/2021 5:43 AM CDT HC PLATELET P2Y12 Routine 01/10/2021 RESPONSE 5:43 AM CDT HC ABO GROUP Routine 01/10/2021 5:42 AM CDT HC MAGNESIUM Routine 01/09/2021 4:35 AM CDT HC COMPREHENSIVE Routine 01/09/2021 METABOLIC PANEL 4:35 AM CDT HC CBC W/ AUTOMATED DIFF Routine 01/09/2021 4:35 AM CDT HC MAGNESIUM Add on 01/08/2021 5:23 AM CDT HC COMPREHENSIVE Routine 01/08/2021 METABOLIC PANEL 5:23 AM CDT HC CBC W/ AUTOMATED DIFF Routine 01/08/2021 5:23 AM CDT HC PLATELET P2Y12 Routine 01/08/2021 RESPONSE 5:13 AM CDT HC COMPREHENSIVE Routine 01/07/2021 METABOLIC PANEL 4:49 AM CDT HC CBC W/ AUTOMATED DIFF Routine 01/07/2021 4:49 AM CDT HC IRON BINDING CAPACITY Routine 01/06/2021 + %SAT 4:37 AM CDT HC COMPREHENSIVE Routine 01/06/2021 METABOLIC PANEL 4:37 AM CDT HC CBC W/ AUTOMATED DIFF Routine 01/06/2021 4:37 AM CDT PANOREX EXAM Routine 01/05/2021 2:[address] CHEST WO CONTRAST Routine 01/05/2021 2:45 PM CDT HC BLOOD TYPING, ABO Routine 01/05/2021 CONFIRM 91 2:10 PM CDT TYPE & CROSSMATCH Routine 01/05/2021 1:57 PM CDT VENOUS LE COMPLETE Routine 01/05/2021 12:06 PM CDT PFT COMPLETE PULM Routine 01/05/2021 FUNCTION 8:36 AM CDT HC Add on 01/05/2021 LIPID-5:CHOL/TRG/HDL/LDL+ 7:10 AM CDT VLDL HC HEMOGLOBIN A1C Add on 01/05/2021 7:10 AM CDT HC COMPREHENSIVE Routine 01/05/2021 METABOLIC PANEL 7:10 AM CDT HC CBC W/ AUTOMATED DIFF Routine 01/05/2021 7:10 AM CDT US DUPLEX SCAN CAROTID Routine 01/04/2021 BILATERAL 4:26 PM CDT CARDIAC CATH REPORT 01/04/2021 1:59 PM CDT CARDIAC CATH REPORT Routine 01/04/2021 Unstable a ngina (HCC) 9:53 AM CDT CARDIAC CATH REPORT Routine 01/04/2021 Unstable a ngina (HCC) 6:26 AM CDT HC COMPREHENSIVE Routine 01/04/2021 METABOLIC PANEL 6:15 AM CDT HC CBC W/ AUTOMATED DIFF Routine 01/04/2021 6:15 AM CDT CONSULT IV THERAPY TEAM Routine 01/03/2021 10:26 AM CDT HC COMPREHENSIVE Routine 01/03/2021 METABOLIC PANEL 8:06 AM CDT HC CBC W/ AUTOMATED DIFF Routine 01/03/2021 8:06 AM CDT from Last 3 Months Results * CHEST 2 VIEWS (02/10/2021 12:43 PM CDT) Only the most recent of 4 results within the time period is included. Specimen Impressions Performed At Decreased left pleural [...] P toma Number [facility] * CHEST IMMEDIATE POST PROCEDURE INSP/EXP (02/04/2021 11:35 AM CDT) Specimen Impressions Performed At 1. Slight decrease in size of the small left pleural effusion and adjacent [facility] atelectasis following thoracentesis. No pneumothorax is visualized. Finalized by Puneet Moreland M.D. on 2:23 PM. Dictated by Puneet Moreland M.D. on 02/04/2021 2:22 PM. Narrative Performed At CHEST X-RAY INSPIRATION/EXPIRATION [facility] INDICATION: post thora. Left pleural ef [...] Organization Address City/State/ZIP Code P toma Number [facility] * IR THORACENTESIS THERAPEUTIC (02/04/2021 11:34 [...] plete details; the drugs utilized were: Lidocaine COTTON STOMPER: Devyn Orantes M.D. The risks, benefits, and [...] complete details; the drugs utilized were: Lidocaine COTTON STOMPER: Devyn Orantes M.D. The risks, benefits, and [...] PLEURAL FLUID TRIGLYCERIDES (02/04/2021 11:21 AM CDT) Only the most recent of 2 results within the time period is included. Pleural Fluid 27 mg/dL [facility] Triglycerides Comment: Triglycerides >110 mg/dL is suggestive of a chylothorax. Triglycerides <50 mg/dL is suggestive of pseudochylothorax. Specimen Pleural Fluid Performing Organization Address City/State/ZIP Code P toma Number [facility] [address] [place] [address] * CT CHEST WO CONTRAST (02/03/2021 3:21 PM CDT) Only the most recent of 2 results within the time period is included. Specimen Impressions Performed At 1. Recent median sternotomy and CABG with intact st ernal wires. Loculated [facility] fluid collection associated with the po sterior inferior pericardium measuring up to 6 cm, likely postoperative. 2. Moderate left and trace right pleura l effusions with simple fluid density. Chylothorax could potentially have this appearance. Consider fluid sampling on the left for further evaluation as clin ically indicated. 3. Adjacent left basilar consolidation, likely atelectasis. Additional mild areas of atelectasis in the lungs. 4. No thoracic lymphadenopathy. Trace a nterior mediastinal fluid, likely postoperative. 5. No significant change in several pre viously noted sub-5 mm nodular opacities in the lungs, which are probably benign . Consider follow-up CT chest in 12 months to evaluate for stability. Finalized by SAMIR SIMON M.D. on 02/04/20 5:15 PM. Dictated by SAMIR SIMON M.D. on 02/03/2021 5:00 PM. Narrative Performed At CT CHEST [facility] Clinical Indication: Male, 61 years o ld. Status post CABG. Status post CABG x4 on 01/11/2021. Evaluate for chyle leak. Technique: Multiple contiguous axial CT images were obtained through the chest without IV contrast. Post processing co anna and sagittal reconstruction images were made from the axial images. IV contrast: None. Comparison: Noncontrast CT chest on 12/26 and chest x-ray on 02/03/2021. FINDINGS: Evaluation of the mediastinum and anthony, including the vasculature and for lymphadenopathy, is limited without the use of IV contrast. Lower Neck: Unremarkable Axilla, Mediastinum and Anthony: No thorac ic lymphadenopathy. Trace fluid in the anterior mediastinum, likely postoperat kain. Heart and Great Vessels: Recent median sternotomy and CABG. Upper limits normal size heart. Dense red devil coronary arter y calcifications. Loculated fluid collection associated with the posterio r inferior pericardium measuring up to 6 cm (series 2 image 45). Mild areas of p ericardial thickening without additional discrete pericardial fluid collection. Thoracic aorta normal in caliber. Mild calcified atherosclerotic plaque. Airway, Lungs and Pleura: Minute retain ed secretions in the central airways. Moderate left pleural effusion with sim ple fluid density. Adjacent consolidation and areas of left lung atelectasis. Tra ce simple fluid density right pleural effusion with adjacent atelectasis. Mil d emphysema. Several unchanged sub-5 mm nodular opacities in the lungs, for exa mple left upper lobe (series 2 image 20). No pneumothorax. Upper Abdomen: Cholecystectomy. Small l eft adrenal adenoma (series 2 image 61). Chest Wall and Osseous Structures: Rece nt median sternotomy with intact sternal wires. Lower cervical and thoracic spon dylosis. No destructive osseous lesion. Procedure Note Interface, Radiant Results - 02/03/2021 5:[address] CHEST Clinical Indication: Male, 61 years old. Status post CABG. Status post CABG x4 on 01/11/2021. Evaluate for chyle leak. Technique: Multiple contiguous axial CT images were obtained through the chest without IV contrast. Post processing coronal and sagittal reconstruction images were made from the axial images. IV contrast: None. Comparison: Noncontrast CT chest on 01/05/2021 and chest x-ray on 02/03/2021. FINDINGS: Evaluation of the mediastinum and anthony, including the vasculature and for lymphadenopathy, is limited without the use of IV contrast. Lower Neck: Unremarkable Axilla, Mediastinum and Anthony: No thoracic lymphadenopathy. Trace fluid in the anterior mediastinum, likely postoperative. Heart and Great Vessels: Recent median sternotomy and CABG. Upper limits normal size heart. Dense red devil coronary artery calcifications. Loculated fluid collection associated with the posterior inferior pericardium measuring up to 6 cm (series 2 image 45). Mild areas of pericardial thickening without additional discrete pericardial fluid collection. Thoracic aorta normal in caliber. Mild calcified atherosclerotic plaque. Airway, Lungs and Pleura: Minute retained secretions in the central airways. Moderate left pleural effusion with simple fluid density. Adjacent consolidation and areas of left lung atelectasis. Trace simple fluid density right pleural effusion with adjacent atelectasis. Mild emphysema. Several unchanged sub-5 mm nodular opacities in the lungs, for example left upper lobe (series 2 image 20). No pneumothorax. Upper Abdomen: Cholecystectomy. Small left adrenal adenoma (series 2 image 61). Chest Wall and Osseous Structures: Recent median sternotomy with intact sternal wires. Lower cervical and thoracic spondylosis. No destructive osseous lesion. IMPRESSION 1. Recent median sternotomy and CABG wi th intact sternal wires. Loculated fluid collection associated with the posterior inferior pericardium measuring up to 6 cm, likely postoperative. 2. Moderate left and trace right pleural effusions with simple fluid density. Chylothorax could potentially have this appearance. Consider fluid sampling on the left for further evaluation as clinically indicated. 3. Adjacent left basilar consolidation, likely atelectasis. Additional mild areas of atelectasis in the lungs. 4. No thoracic lymphadenopathy. Trace an terior mediastinal fluid, likely postoperative. 5. No significant change in several prev iously noted sub-5 mm nodular opacities in the lungs, which are probably benign. Consider follow-up CT chest in 12 months to evaluate for stability. Finalized by SAMIR SIMON M.D. on 02/03/2021 5:15 PM. Dictated by SAMIR SIMON M.D. on 02/03/2021 5:00 PM. Performing Organization Address City/State/ZIP Code P toma Number [facility] RESULTS * CHEST SINGLE VIEW (01/20/2021 10:50 AM CDT) Only the most recent of 7 results within the time period is included. Specimen Impressions Performed At 1. Interval removal of left thoracostomy tube. No p neumothorax. [facility] RES[facility] 2. Slight increase in left pleural ef fusion and left basilar opacities, likely atelectasis. Infection cannot be exclud ed. 3. Increased opacities in right lung base, likely atelectasis. By my electronic signature, I attest th at I have personally reviewed the images for this examination and formulated the interpretations and opinions expressed in this report Finalized by Alicja Roque M.D. on 11:58 AM. Dictated by Guillaume Darling M.D. on 01/20/2021 11:18 AM. Narrative Performed At CHEST SINGLE VIEW [facility] RESULTS INDICATION: chest tube removal. Rule ou t pneumothorax. COMPARISON STUDY: Chest radiograph January 19, 2021. FINDINGS: Support Devices: Interval removal of le ft thoracostomy tube. Lungs/Pleura: The lung volume is normal . Unchanged patchy opacities of the left lung. Slight increase in left pleural e ffusion. Increased opacities in the right lower lung. Heart and Mediastinum: The cardiomedias tinal silhouette is stable. Prior median sternotomy. Calcification thoracic aort a. Procedure Note Interface, Radiant Results - 01/20/2021 12:01 PM CDT CHEST SINGLE VIEW INDICATION: chest tube removal. Rule out pneumothorax. COMPARISON STUDY: Chest radiograph January 19, 2021. FINDINGS: Support Devices: Interval removal of left thoracostomy tube. Lungs/Pleura: The lung volume is normal. Unchanged patchy opacities of the left lung. Slight increase in left pleural effusion. Increased opacities in the right lower lung. Heart and Mediastinum: The cardiomediastinal silhouette is stable. Prior median sternotomy. Calcification thoracic aorta. IMPRESSION 1. Interval removal of left thoracostom y tube. No pneumothorax. 2. Slight increase in left pleural effu dick and left basilar opacities, likely atelectasis. Infection cannot be excluded. 3. Increased opacities in right lung ba se, likely atelectasis. By my electronic signature, I attest that I have personally reviewed the images for this examination and formulated the interpretations and opinions expressed in this report Finalized by Alicja Roque M.D. on 01/20/2021 11:58 AM. Dictated by Guillaume Darling M.D. on 01/20/2021 11:18 AM. Performing Organization Address City/State/ZIP Code P toma Number [facility] RESULTS * CBC (01/20/2021 3:53 AM CDT) Only the most recent of 10 results within the time period is included. White Blood 9.9 4.5 - 11.0 K/UL [facility] Cells RBC 3.10 (L) 4.4 - 5.5 M/UL [facility] Hemoglobin 9.6 (L) 13.5 - 16.5 GM/DL [facility] Hematocrit 28.0 (L) 40 - 50 % [facility] MCV 90.5 80 - 100 FL [facility] MCH 31.1 26 - 34 PG [facility] MCHC 34.4 32.0 - 36.0 G/DL [facility] RDW 15.3 (H) 11 - 15 % [facility] Platelet Count 329 150 - 400 K/UL [facility] MPV 6.6 (L) 7 - 11 FL [facility] Specimen Blood Performing Organization Address City/[facility]/ZIP Code P toma Number [facility] [address] [place] [address] * BASIC METABOLIC PANEL (01/20/2021 3:53 AM CDT) Only the most recent of 12 results within the time period is included. Sodium 128 (L) 137 - 147 MMOL/L [facility] Potassium 3.6 3.5 - 5.1 MMOL/L [facility] Chloride 92 (L) 98 - 110 MMOL/L [facility] CO2 30 21 - 30 MMOL/L [facility] Anion Gap 6 3 - 12 [facility] Glucose 143 (H) 70 - 100 MG/DL [facility] Blood Urea 14 7 - 25 MG/DL [facility] Nitrogen Creatinine 0.84 0.4 - 1.24 MG/DL [facility] Calcium 8.5 8.5 - 10.6 MG/DL [facility] eGFR Non >60 >60 mL/min [facility] Comment: [place] The eGFR is not validated f or use in drug dosing adjustments. Continue to use estimated creatinine clearance per dosing reference text. Please contact the Clinical Pharmacist for questions. eGFR >60 >60 mL/min [facility] [place]e Comment: The eGFR is not validated for use in drug dosing adjustments. Continue to use estimated creatinine clearance per dosing reference text. Please contact the Clinical Pharmacist for questions. Specimen Blood Performing Organization Address [facility]/[facility]/ZIP [facility] [place] P [place]ma Number [facility] [address] [place] [address] * MAGNESIUM (01/16/2021 5:23 AM CDT) Only the most recent of 12 results within the time period is included. Magnesium 2.1 1.6 - 2.6 mg/dL [facility] Specimen Performing Organization Address City/[facility]/ZIP Code P toma Number [facility] [address] [place] [address] * UREA NITROGEN-URINE RANDOM (01/15/2021 6:45 PM CDT) Urea Nitrogen 310 MG/DL [facility] Specimen Urine - Urine Performing Organization Address City/[facility] Code P toma Number [facility] [address] [place] [address] * SODIUM-URINE RANDOM (01/15/2021 6:45 PM CDT) Sodium, Random 53 MMOL/L [facility] Specimen Urine - Urine Performing Organization Address [facility] Code P toma Number [facility] [address] [place] [address] * CREATININE-URINE RANDOM (01/15/2021 6:45 PM CDT) Creatinine, 35 MG/DL [facility] Random Specimen Urine - Urine Performing Organization Address [facility] P toma Number [facility] [address] [place] [address] * POC GLUCOSE (01/15/2021 8:35 AM CDT) Only the most recent of 32 results within the time period is included. Glucose, POC 153 (H) 70 - 100 MG/DL [facility] Specimen Performing Organization Address [facility] P toma Number [facility] [address] [place] [address] * PHOSPHORUS (01/13/2021 5:30 PM CDT) Only the most recent of 2 results within the time period is included. Phosphorus 1.9 (L) 2.0 - 4.5 MG/DL [facility] Specimen Performing Organization Address [facility] P toma Number [facility] [address] [place] [address] * TRANSFUSE CRYOPRECIPITATE (01/12/2021 9:24 AM CDT) * TRANSFUSE RBC'S (01/12/2021 9:23 AM CDT) Specimen Blood * BLOOD GASES, ARTERIAL (01/12/2021 2:52 AM CDT) Only the most recent of 2 results within the time period is included. pH-Arterial 7.41 7.35 - 7.45 MAIN LAB pCO2-Arterial 36 35 - 45 MMHG [facility] pO2-Arterial 81 80 - 100 MMHG [facility] Base 1.9 MMOL/L [facility] Deficit-Arteria l O2 Sat-Arterial 96.1 95 - 99 % [facility] Bicarbonate-ART 22.8 21 - 28 MMOL/L MAIN LAB -Anthony Specimen Blood, arterial - Blood Performing Organization Address City/[facility]/ZIP Code P toma Number MAIN LAB [address] [place] [phone] * POC BLOOD GAS ARTERIAL (01/12/2021 1:45 AM CDT) Only the most recent of 7 results within the time period is included. PH-ART-POC 7.42 7.35 - 7.45 [facility] ROM2-RJY-GUR 36 35 - 45 MMHG [facility] PO2-ART-POC 147 (H) 80 - 100 MMHG [facility] Base 1.0 MMOL/L MAIN LAB Def-ART-POC O2 Sat-ART-POC 99.0 95 - 99 % MAIN LAB Bicarbonate-ART 23.1 21 - 28 MMOL/L MAIN LAB -POC Specimen Performing Organization Address City/[facility] Code P toma Number MAIN LAB [address] [place] [phone] * POC SODIUM (01/12/2021 1:45 AM CDT) Only the most recent of 7 results within the time period is included. Sodium-POC 140 137 - 147 MMOL/L [facility] Specimen Performing Organization Address City/[facility]/ZIP Code P toma Number MAIN LAB [address] [place] [address] * POC POTASSIUM (01/12/2021 1:45 AM CDT) Only the most recent of 7 results within the time period is included. Potassium-POC 3.9 3.5 - 5.1 MMOL/L MAIN LAB Specimen Performing Organization Address City/[facility] Code P toma Number [facility] [address] [place] [phone] * POC HEMATOCRIT (01/12/2021 1:45 AM CDT) Only the most recent of 7 results within the time period is included. Hemoglobin POC 6.8 (L) 13.5 - 16.5 GM/DL MAIN LAB Hematocrit POC 20.0 (L) 40 - 50 % [facility] Specimen Performing Organization Address City/[facility]/ZIP Code P toma Number MAIN LAB [address] [place] [phone] * LACTIC ACID (BG - RAPID LACTATE) (01/11/2021 10:20 PM CDT) Lactic Acid,BG 1.3 0.5 - 2.0 MMOL/L [facility] Specimen Performing Organization Address City/[facility] Code P toma Number [facility] [address] [place] [phone] * IONIZED CALCIUM (01/11/2021 10:20 PM CDT) Ionized Calcium 1.14 1.0 - 1.3 MMOL/L [facility] Specimen Blood Performing Organization Address [facility] P toma Number [facility] [address] [place] [address] * LACTIC ACID(LACTATE) (01/11/2021 10:00 PM CDT) Lactic Acid 1.3 0.5 - 2.0 MMOL/L MAIN LAB Specimen Blood Performing Organization Address [facility] P toma Number [facility] [address] [place] [address] * PREPARE CRYOPRECIPITATE (01/11/2021 8:35 PM CDT) Units Ordered 10 MAIN LAB Unit Number [id number] MAIN LAB Blood Component CRY 5 POOLED MAIN LAB Type Unit Division 00 MAIN LAB Status OF Unit TRANSFUSED [facility] ISSUE DATE TIME MAIN LAB PRODUCT CODE [id number] MAIN LAB BLOOD TYPE A POS MAIN LAB CODING STATUS 6200 MAIN LAB BLOOD [id number] MAIN LAB EXPIRATION DATE Transfusion OK TO TRANSFUSE [facility] MAIN [facility] Status Unit Number [id number] MAIN LAB Blood Component CRY 5 POOLED MAIN LAB Type Unit Division 00 [facility]U MAIN LAB Status OF Unit TRANSFUSED MAIN LAB ISSUE DATE TIME MAIN LAB PRODUCT CODE [id number] MAIN LAB BLOOD TYPE A POS MAIN LAB CODING STATUS 6200 MAIN LAB BLOOD [id number] MAIN LAB EXPIRATION DATE Transfusion OK TO TRANSFUSE [facility]IN [facility] Status Specimen Other (Specify) Performing Organization Address [facility] P toma Number [facility] [address] [place] [phone] * TRANSFUSE PLASMA (FFP) (01/11/2021 7:23 PM CDT) Only the most recent of 2 results within the time period is included. * TRANSFUSE APHERESIS PLATELETS (01/11/2021 6:56 PM CDT) Only the most recent of 2 results within the time period is included. * TEG WITH KAOLIN (01/11/2021 6:35 PM CDT) MA Kaolin 53.9 >49.9 MM REFERENCE LAB R Kaolin 8.6 <9.1 MIN REFERENCE LAB RK Kaolin 10.9 <12.1 MIN REFERENCE LAB K Kaolin 2.3 <3.1 MIN REFERENCE LAB Angle Kaolin 56.9 >54.9 DEG REFERENCE LAB Lysis30 0.0 <8.1 % REFERENCE LAB Specimen Blood Performing Organization Address City/[facility]/ZIP Code P toma Number REFERENCE LAB REFERENCE LAB See results for address. * PROTIME INR (PT) (01/11/2021 6:35 PM CDT) Only the most recent of 2 results within the time period is included. Pathologist [facility] INR 1.3 (H) 0.8 - 1.2 MAIN LAB Specimen Blood Performing Organization Address [facility] P toma Number [facility]IN [facility] [address] [place] [phone] * FIBRINOGEN (01/11/2021 6:35 PM CDT) Pathologist [facility] Fibrinogen 160 (L) 200 - 400 MG/DL [facility] Specimen Performing Organization Address [facility] P toma Number [facility] [address] [place] [address] * POTASSIUM (01/11/2021 6:35 PM CDT) Pathologist [facility] Potassium 4.3 3.5 - 5.1 MMOL/L MAIN LAB Specimen Blood Performing Organization Address [facility] P toma Number [facility] [address] [place] [address] * PREPARE APHERESIS PLATELETS (01/11/2021 6:31 PM CDT) Only the most recent of 2 results within the time period is included. Pathologist [facility] Units Ordered 1 [facility] MAIN LAB Unit Number [id number] MAIN LAB Blood Component APHERESIS PLT,LEUKO [facility] MAIN LAB Type REDUCED,2ND CONT. Unit Division 00 MAIN LAB Status OF Unit TRANSFUSED KU MAIN LAB ISSUE DATE TIME [id number] KU MAIN LAB PRODUCT CODE [id number] K[facility] MAIN LAB BLOOD TYPE O POS [facility]U MAIN LAB CODING STATUS 5100 KU MAIN LAB BLOOD [id number] KU MAIN LAB EXPIRATION DATE Transfusion OK TO TRANSFUSE [facility]IN [facility] Status Specimen Other (Specify) Performing Organization Address [facility] Code P toma Number [facility] [address] [place] [address] * PREPARE PLASMA (FFP) (01/11/2021 5:20 PM CDT) Units Ordered 2 [facility] Unit Number [id number] [facility] MAIN [facility] Blood Component APHERESIS PLASMA THAWED [facility] MAIN LAB Type Unit Division 00 KU MAIN LAB Status OF Unit TRANSFUSED [facility]U MAIN LAB ISSUE DATE TIME [id number] K[facility] MAIN LAB PRODUCT CODE [id number] K[facility] MAIN LAB BLOOD TYPE A POS [facility]IN [facility] CODING STATUS 6200 KU MAIN LAB BLOOD [id number] KU MAIN LAB EXPIRATION DATE Transfusion OK TO TRANSFUSE [facility] MAIN LAB Status Unit Number [id number] [facility] MAIN LAB Blood Component APHERESIS PLASMA THAWED [facility]IN [facility] Type Unit Division 00 KU MAIN LAB Status OF Unit TRANSFUSED KU MAIN LAB ISSUE DATE TIME [id number] K[facility] MAIN LAB PRODUCT CODE [id number] [facility] MAIN LAB BLOOD TYPE A POS [facility]IN [facility] CODING STATUS 6200 KU MAIN LAB BLOOD [id number] K[facility] MAIN LAB EXPIRATION DATE Transfusion OK TO TRANSFUSE [facility]IN [facility] Status Specimen Other (Specify) Performing Organization Address [facility] P toma Number [facility] [address] [place] [address] * LINE PLCID 1V CXR (01/11/2021 3:53 PM CDT) Specimen Impressions Performed At 1. Postsurgical changes, tubes and ca theters as described with mild bilateral [facility] RESULTS perihilar and bibasilar atelectasis. By my electronic signature, I attest th at I have personally reviewed the images for this examination and formulated the interpretations and opinions expressed in this report Finalized by Timothy Dorsey M.D. on 021 4:19 PM. Dictated by Guillaume Darling M.D. on 01/11/2021 3:58 PM. Narrative Performed At [facility] 1V CXR [facility] RAD RESULTS INDICATION: ET Tube and Line Placement COMPARISON STUDY: Chest radiograph January 02, 2021. FINDINGS: Support Devices: Placement of endotrach eal tube with tip above the fede. Placement of a right IJ pulmonary arter y catheter with tip projected over the main pulmonary artery. Left thoracostom y tube in place. Gastric tube courses below the level of the diaphragm and ou t of the yevix-jg-jclw. Mediastinal drain in place. Interval median sternotomy. Lungs/Pleura: Low lung volumes. Perihil ar bandlike opacities, greater on the right, likely postoperative atelectasis . Additional bibasilar linear opacities, likely postoperative atelectasis. No pl eural effusion. No pneumothorax. Heart and Mediastinum: The cardiomedias tinal silhouette is stable. Interval CABG. Minimal postoperative pneumomedia stinum. Procedure Note Interface, Radiant Results - 01/11/2021 4:22 PM CDT LINE PLCID 1V CXR INDICATION: ET Tube and Line Placement COMPARISON STUDY: Chest radiograph January 02, 2021. FINDINGS: Support Devices: Placement of endotracheal tube with tip above the fede. Placement of a right IJ pulmonary artery catheter with tip projected over the main pulmonary artery. Left thoracostomy tube in place. Gastric tube courses below the level of the diaphragm and out of the udoge-jg-ntpt. Mediastinal drain in place. Interval median sternotomy. Lungs/Pleura: Low lung volumes. Perihilar bandlike opacities, greater on the right, likely postoperative atelectasis. Additional bibasilar linear opacities, likely postoperative atelectasis. No pleural effusion. No pneumothorax. Heart and Mediastinum: The cardiomediastinal silhouette is stable. Interval CABG. Minimal postoperative pneumomediastinum. IMPRESSION 1. Postsurgical changes, tubes and cath eters as described with mild bilateral perihilar and bibasilar atelectasis. By my electronic signature, I attest that I have personally reviewed the images for this examination and formulated the interpretations and opinions expressed in this report Finalized by Timothy Dorsey M.D. on 01/11/2021 4:19 PM. Dictated by Guillaume Darling M.D. on 01/11/2021 3:58 PM. Performing Organization Address City/State/ZIP Code P toma Number [facility] RESULTS * PTT (APTT) (01/11/2021 3:15 PM CDT) Only the most recent of 2 results within the time period is included. APTT 29.5 24.0 - 36.5 SEC [facility] MAIN [facility] Specimen Blood Performing Organization Address City/State/ZIP Code P toma Number [facility] [address] [place] [address] * POC IONIZED CALCIUM (01/11/2021 1:44 PM CDT) Only the most recent of 5 results within the time period is included. Ionized 1.15 1.0 - 1.3 MMOL/L MAIN LAB Calcium-POC Specimen Performing Organization Address City/[facility]/ZIP Code P toma Number MAIN LAB [address] [place] [address] * ACTIVATED CLOTTING TIME HMS (01/11/2021 1:42 PM CDT) Only the most recent of 5 results within the time period is included. Activated 121 s MAIN LAB Clotting Time HMS Specimen Performing Organization Address City/[facility] Code P toma Number MAIN LAB [address] [place] [address] * HERLINDA (01/11/2021 10:52 AM CDT) Narrative Performed At Melvi Vieira MD 01/11/2021 1:54 PM Anesthesia Procedure: Transesophageal E chocardiogram HERLINDA Date/Time: 01/11/2021 10:52 AM Associated procedure: CABG Preprocedure checklist performed: 2 pat ient identifiers, risks & benefits discussed, patient evaluated, timeout p erformed, consent obtained and patient being monitored Staff Anesthesiologist: Melvi Vieira MD Surgeon: Catarino Machado MD Performed personally Indication for HERLINDA: assessment of ascen ding aorta, assessment of surgical repair, defect repair evaluation, hemod ynamic monitoring, ventricular function, volume assessment, confirmati on of pre-procedure diagnosis and valvular assessment Physician requesting echo: Raúl Machado MD CPT codes: 77417 - HERLINDA 2D imaging (w or w/o M-mode) including probe placement, image acquisition, interpret ation & report, 03438 - PWD and/or CWD f/u or limited study and 04682 - Co james flow velocity mapping Patient location: OR Intubated: yes Bite block: yes Heart visualized: yes Insertion: easy Probe type: multiplane Modalities: 2D, color flow mapping, con tinuous wave Doppler and pulse wave Doppler Echocardiographic and Doppler Measureme nts Ventricular Findings Right Ventricle RV cavity size: normal RV hypertrophy: no RV thrombus: no RV global function: normal Left Ventricle LV cavity size: normal LV hypertrophy: no LV thrombus: no LV global function: normal LV ejection fraction: 55-60% Ventricular Wall Motion Four Chamber View Basal anterolateral: normal Basal inferoseptal: normal Mid anterolateral: normal Mid inferoseptal: normal Apical lateral: normal Apical septal: normal Two Chamber View Basal anterior: normal Basal inferior: normal Mid anterior: normal Mid inferior: normal Apical anterior: normal Apical inferior: normal [place] View Basal anteroseptal: normal Basal inferolateral: normal Mid anteroseptal: normal Mid inferolateral: normal Apical lateral: normal Apical septal: normal [place]: normal Mid [place] View Mid anteroseptal: normal Mid anterior: normal Mid anterolateral: normal Mid inferolateral: normal Mid inferior: normal Mid inferoseptal: normal Valves Aortic Valve Annulus: normal Stenosis: none and mild sclerosis, n ot stenosis Annulus measurement: 2 cm Regurgitation severity: none Leaflet morphology: normal Leaflet motion: normal Mitral Valve Annulus: normal Stenosis: none Regurgitation severity: trace Leaflet morphology: normal Leaflet motion: normal Tricuspid Valve Annulus: normal Stenosis: none Regurgitation severity: none Leaflet morphology: normal Leaflet motion: normal Pulmonic Valve Annulus: normal Stenosis: none Regurgitation severity: none Leaflet morphology: normal Aorta Ascending Aorta Size: normal Diameter: 3.27 cm Dissection: no Plaque thickness: 0-3 mm Plaque mobile: no Sinotubular Junction Size: normal Diameter: 2.73 cm Dissection: no Plaque thickness: 0-3 mm Plaque mobile: no Sinus of Valsalva Size: normal Diameter: 3.32 cm Dissection: no Plaque thickness: 0-3 mm Plaque mobile: no Descending Thoracic Aorta Size: normal Diameter: 2.32 Dissection: no Plaque thickness: 0-3 mm Plaque mobile: no Atria Right Atrium Size: normal and PA catheter SEC (smoke): no Thrombus: no Tumor: no Device: yes Left Atrium Size: normal SEC (smoke): no Thrombus: no Tumor: no Device: no Left atrial appendage size: normal Septa Intra-atrial septal morphology: normal Intra-ventricular septal morphology: no rmal Other Findings Pericardium: pericardial effusion and s mall Pleural effusion: none Pulmonary arteries: normal Pulmonary venous flow: blunted (decreas ed) systolic flow Post Procedure Systolic anterior motion of the mitral valve: no Return to CPB for echo-related diagnosi s: no Aorta intact after decannulation: yes Post-procedure LVEF measured: yes; 55-6 0% Post-procedure RV dysfunction: none Post-procedure comments: POST-INTERVENT ION FINDINGS (RHYTHM: sinus): The LV systolic function is preserved w ith no inotropic support. The visually estimated EF is 55-60%. No RWM A. The ascending aorta is intact and no dissection is seen following dec annulation. Otherwise, findings are as above. Performed by: Melvi Vieira MD Authorized by: Melvi Vieira MD * PULMONARY ARTERY CATHETER INSERTION (01/11/2021 10:25 AM CDT) Narrative Performed At [facility] 01/11/2021 3 :13 PM Anesthesia Procedure: Pulmonary Artery Catheter PULMONARY ARTERY CATHETER INSERTION Date/Time: 01/11/2021 9:22 AM This note is used in conjunction with t pal CVC Line Insertion note for additional details regarding the insert ion of a Pulmonary Artery Catheter: PA Catheter Insertion Procedure Catheter type: oximetric Insertion depth: 50 cm Events: none Performed by: Josias Teresa SRNA Authorized by: Melvi Vieira MD * CENTRAL LINE INSERTION (01/11/2021 10:25 AM CDT) Narrative Performed At [facility] 01/11/2021 3 :13 PM Anesthesia Procedure: Central Venous Ca theter Line CENTRAL LINE INSERTION Date/Time: 01/11/2021 9:19 AM Patient location: OR Indications: medications requiring CV a ccess, hemodynamic pressure monitoring and vascular access Preprocedure checklist performed: 2 pat ient identifiers, risks & benefits discussed, patient evaluated, timeout p erformed, consent obtained, patient being monitored and CVC bundle followed (proper hand washing, maximal sterile barrier technique with cap, deisy rile gown, sterile glove, sterile drape, and skin prep for antisepsis) CVC Line Insertion Procedure Skin prepped with chlorhexidine; skin p rep agent completely dried prior to procedure. Patient Position: Trendelenburg Location: internal jugular vein Laterality: right Vein identification: ultrasound guided Confirmation of venous placement prior to dilation of vein by: ultrasound Ultrasound image captured Number of attempts: 1 Successful placement: yes Patient sedated: yes Catheter: Catheter type: single lumen placed u sing standard wire through needle technique Catheter size: 20 G Procedure Outcome Post procedure: all ports aspirated, dr clarice applied, line sutured and securement device; Dressing: chlorhexid ine impregnated sponge and sterile occlusive dressing Placement verification: x-ray verificat ion pending Events: none Observations: patient tolerated well Performed by: Josias Teresa SRNA Authorized by: Melvi Vieira MD * A-LINE INSERTION (01/11/2021 10:18 AM CDT) Narrative Performed At [facility] 01/11/2021 3 :13 PM Anesthesia Procedure: Arterial Line Wanda cement A-LINE INSERTION Date/Time: 01/11/2021 8:46 AM Patient location: Pre/Post Indications: multiple ABGs, frequent la bs and hemodynamic monitoring Preprocedure checklist performed: 2 pat ient identifiers, risks & benefits discussed, patient evaluated, timeout p erformed, consent obtained, patient being monitored and sterile drape Sterile technique: - Proper hand washing - Cap, mask - Sterile gloves - Skin prep for antisepsis Arterial Line Procedure Patient sedated: yes (see MAR) Sedation type: midazolam; Artery prepped with chlorhexidine; skin prep agent completely dried prior to procedure. Location: radial artery Laterality: right Technique: palpation and ultrasound Ultrasound image captured Needle gauge: 20 G Number of attempts: 3 Procedure Outcome Catheter secured with adhesive dressing applied Events: no complications noted during i nsertion and skin intact, warm, and dry Observation: pt tolerated well Additional notes: Attempt x 2 c palpation. Successful a ttempt x 1 via US Performed by: Josias Teresa SRNA Authorized by: Melvi Vieira MD * BASELINE ACTIVATED CLOTTING TIME [facility] – [place] (01/11/2021 9:36 AM CDT) Baseline 152 s MAIN LAB Activated Clotting Time [facility] – [place] Specimen Performing Organization Address City/State/ZIP Code P toma Number MAIN LAB [address] [place] [address] * CBC AND DIFF (01/11/2021 5:00 AM CDT) Only the most recent of 9 results within the time period is included. Pathologist [facility] White Blood 6.8 4.5 - 11.0 K/UL K[facility] MAIN LAB Cells RBC 4.45 4.4 - 5.5 M/UL [facility] MAIN LAB Hemoglobin 13.8 13.5 - 16.5 GM/DL K[facility] MAIN LAB Hematocrit 39.5 (L) 40 - 50 % [facility] MAIN LAB MCV 88.8 80 - 100 FL [facility] MAIN LAB MCH 31.1 26 - 34 PG [facility] MAIN LAB MCHC 35.0 32.0 - 36.0 G/DL [facility] MAIN LAB RDW 14.8 11 - 15 % [facility] MAIN LAB Platelet Count 193 150 - 400 K/UL [facility] MAIN LAB MPV 8.1 7 - 11 FL [facility] MAIN LAB Neutrophils 52 41 - 77 % [facility] MAIN LAB Lymphocytes 34 24 - 44 % [facility] MAIN LAB Monocytes 9 4 - 12 % [facility] MAIN LAB Eosinophils 4 0 - 5 % [facility] MAIN LAB Basophils 1 0 - 2 % [facility] MAIN LAB Absolute 3.54 1.8 - 7.0 K/UL [facility] MAIN LAB Neutrophil Count Absolute Lymph 2.31 1.0 - 4.8 K/UL [facility] MAIN LAB Count Absolute 0.64 0 - 0.80 K/UL [facility] MAIN LAB Monocyte Count Absolute 0.26 0 - 0.45 K/UL [facility] MAIN LAB Eosinophil Count Absolute 0.06 0 - 0.20 K/UL [facility] MAIN LAB Basophil Count Specimen Blood Performing Organization Address City/State/ZIP Code P toma Number KU MAIN LAB [address] [place] [address] * COMPREHENSIVE METABOLIC PANEL (01/11/2021 5:00 AM CDT) Only the most recent of 9 results within the time period is included. Pathologist [facility] Sodium 137 137 - 147 MMOL/L K[facility] MAIN LAB Potassium 3.8 3.5 - 5.1 MMOL/L [facility] MAIN LAB Chloride 106 98 - 110 MMOL/L [facility] MAIN LAB Glucose 99 70 - 100 MG/DL [facility] MAIN LAB Blood Urea 7 7 - 25 MG/DL [facility] MAIN LAB Nitrogen Creatinine 0.85 0.4 - 1.24 MG/DL [facility] MAIN LAB Calcium 9.7 8.5 - 10.6 MG/DL [facility] MAIN LAB Total Protein 7.6 6.0 - 8.0 G/DL [facility] MAIN LAB Total Bilirubin 0.9 0.3 - 1.2 MG/DL K[facility] MAIN LAB Albumin 4.2 3.5 - 5.0 G/DL [facility] MAIN LAB Alk Phosphatase 71 25 - 110 U/L [facility] MAIN LAB AST (SGOT) 33 7 - 40 U/L [facility] MAIN LAB CO2 24 21 - 30 MMOL/L [facility] MAIN LAB ALT (SGPT) 37 7 - 56 U/L [facility] MAIN LAB Anion Gap 7 3 - 12 [facility] MAIN LAB eGFR Non >60 >60 mL/min K[facility] MAIN LAB Comment: Nepalese The eGFR is not validated f or use in drug dosing adjustments. Continue to use estimated creatinine clearance per dosing reference text. Please contact the Clinical Pharmacist for questions. eGFR >60 >60 mL/min K[facility] MAIN LAB Nepalese Comment: The eGFR is not validated for use in drug dosing adjustments. Continue to use estimated creatinine clearance per dosing reference text. Please contact the Clinical Pharmacist for questions. Specimen Blood Performing Organization Address City/State/ZIP Code P toma Number KU MAIN LAB [address] [place] [address] * PLATELET P2Y12 RESPONSE (01/10/2021 5:43 AM CDT) Only the most recent of 2 results within the time period is included. Platelet P2Y12 74 (L) 180 - 335 PRU [facility] MAIN LAB Response Specimen Performing Organization Address City/State/ZIP Code P toma Number KU MAIN LAB [address] [place] [address] * TYPE & CROSSMATCH (01/10/2021 5:42 AM CDT) Only the most recent of 2 results within the time period is included. Units Ordered 2 [facility] MAIN LAB Crossmatch 01/13/2021,2359 [facility] MAIN LAB Expires Record Check FOUND [facility] MAIN LAB ABO/RH(D) A POS [facility] MAIN LAB Antibody Screen NEG [facility] MAIN LAB Electronic YES [facility] MAIN LAB Crossmatch Unit Number [id number] [facility] MAIN LAB Blood Component RBC,ADSOL,LEUKO REDUCED [facility] MAIN LAB Type Unit Division 00 [facility] MAIN LAB Status OF Unit REL FROM ALLOC [facility] MAIN LAB Transfusion OK TO TRANSFUSE [facility] MAIN LAB Status Crossmatch COMPATIBLE,ELECTRONIC [facility] MAIN LAB Result Unit Number [id number] [facility] MAIN LAB Blood Component RBC,ADSOL,LEUKO REDUCED [facility] MAIN LAB Type Unit Division 00 [facility] MAIN LAB Status OF Unit REL FROM ALLOC [facility] MAIN LAB Transfusion OK TO TRANSFUSE [facility] MAIN LAB Status Crossmatch COMPATIBLE,ELECTRONIC [facility] MAIN LAB Result Unit Number [id number] [facility] MAIN LAB Blood Component RBC,ADSOL,LEUKO REDUCED [facility] MAIN LAB Type Unit Division 00 [facility] MAIN LAB Status OF Unit TRANSFUSED K[facility] MAIN LAB ISSUE DATE TIME KU MAIN LAB PRODUCT CODE [id number] [facility] MAIN LAB BLOOD TYPE A POS [facility]U MAIN LAB CODING STATUS 6200 KU MAIN LAB BLOOD [id number] [facility] MAIN LAB EXPIRATION DATE Transfusion OK TO TRANSFUSE [facility] MAIN LAB Status Crossmatch COMPATIBLE,ELECTRONIC [facility] MAIN LAB Result Specimen Decubitus Performing Organization Address [facility] Code P toma Number KU MAIN LAB [address] [place] [id number] * IRON + BINDING CAPACITY + %SAT+ FERRITIN (01/06/2021 4:37 AM CDT) Iron 92 50 - 185 MCG/DL [facility] MAIN LAB Iron 340 270 - 380 MCG/DL [facility] MAIN LAB Binding-TIBC % Saturation 27 (L) 28 - 42 % [facility] MAIN LAB Ferritin 71 30 - 300 NG/ML [facility] MAIN LAB Specimen Performing Organization Address [facility] Code P toma Number K[facility] MAIN LAB [address] [place] [address] * PANOREX EXAM (01/05/2021 2:56 PM CDT) Specimen Impressions Performed At Findings/Impression: [facility] RAD RESULTS There are numerous missing teeth. Denta l caries involving all remaining dentition. There are periodontal diseas e at #21 and 28. There are coarse calcifications in the neck consistent with atherosclerotic calcification. Finalized by Stanislav Gold M.D. on 12/26 3:25 PM. Dictated by Stanislav Gold M.D. on 01/05/2021 3:24 PM. Narrative Performed At PANOREX EXAM K[facility] RAD RESULTS Indication: pre operative cabg Comparison: None. Procedure Note Interface, Radiant Results - 01/05/2021 3:28 PM CDT PANOREX EXAM Indication: pre operative cabg Comparison: None. IMPRESSION Findings/Impression: There are numerous missing teeth. Dental caries involving all remaining dentition. There are periodontal disease at #21 and 28. There are coarse calcifications in the neck consistent with atherosclerotic calcification. Finalized by Stanislav Gold M.D. on 01/05/2021 3:25 PM. Dictated by Stanislav Gold M.D. on 01/05/2021 3:24 PM. Performing Organization Address City/State/ZIP Code P toma Number KU RAD RESULTS * BLOOD TYPE CONFIRMATION - ORDER ONLY IF REQUESTED BY LAB (01/05/2021 2:10 PM CDT) ABO/RH(D) A POS [facility] MAIN LAB Specimen Midstream Performing Organization Address City/State/ZIP Code P toma Number KU MAIN LAB [address] [place] [address] * PV VEIN MAP ARTERIAL BYPASS GRAFT (01/05/2021 12:06 PM CDT) LEFT VEIN MAP 7.7 mm OTHER OUTSIDE GT SAPHENOUS AP LAB SAPHENOFEM JUNC LEFT VEIN MAP 5.6 mm OTHER OUTSIDE GT SAPHENOUS AP LAB PROXIMAL THIGH LEFT VEIN MAP 2.9 mm OTHER OUTSIDE GT SAPHENOUS AP LAB MID THIGH LEFT VEIN MAP 3.5 mm OTHER OUTSIDE GT SAPHENOUS AP LAB DISTAL THIGH LEFT VEIN MAP 2.8 mm OTHER OUTSIDE GT SAPHENOUS AP LAB KNEE LEFT VEIN MAP 2.1 mm OTHER OUTSIDE GT SAPHENOUS AP LAB PROXIMAL CALF LEFT VEIN MAP 2.1 mm OTHER OUTSIDE GT SAPHENOUS AP LAB MID CALF LEFT VEIN MAP 2.5 mm OTHER OUTSIDE GT SAPHENOUS AP LAB DISTAL CALF LEFT VEIN MAP 2.6 mm OTHER OUTSIDE GT SAPHENOUS AP LAB ANKLE RIGHT VEIN MAP 6.8 mm OTHER OUTSIDE GT SAPHENOUS AP LAB SAPHENOFEM JUNC RIGHT VEIN MAP 4.2 mm OTHER OUTSIDE GT SAPHENOUS AP LAB PROXIMAL THIGH RIGHT VEIN MAP 3.4 mm OTHER OUTSIDE GT SAPHENOUS AP LAB MID THIGH RIGHT VEIN MAP 4.0 mm OTHER OUTSIDE GT SAPHENOUS AP LAB DISTAL THIGH RIGHT VEIN MAP 3.9 mm OTHER OUTSIDE GT SAPHENOUS AP LAB KNEE RIGHT VEIN MAP 3.5 mm OTHER OUTSIDE GT SAPHENOUS AP LAB PROXIMAL CALF RIGHT VEIN MAP 2.8 mm OTHER OUTSIDE GT SAPHENOUS AP LAB MID CALF RIGHT VEIN MAP 2.3 mm OTHER OUTSIDE GT SAPHENOUS AP LAB DISTAL CALF RIGHT VEIN MAP 2.5 mm OTHER OUTSIDE GT SAPHENOUS AP LAB ANKLE Cardiology Megan [employer] OTHER OUTSIDE Ultrasound LAB Machine Specimen Narrative Performed At OTHER OUTSIDE LAB Bilateral Great saphenous veins are pat ent with no thrombus and normal in size. Performing Organization Address City/State/ZIP Code P toma Number OTHER OUTSIDE LAB * PFT COMPLETE PULM FUNCTION (01/05/2021 8:36 AM CDT) FVC-Pre 3.57 L KU PFT MAIN FVC-%Pred-pre 85 % KU PFT MAIN FVC-Post 3.77 L KU PFT MAIN FVC-%Pred-Post 90 % KU PFT MAIN FEV1-Pre 2.65 L KU PFT MAIN FEV1-%Pred-Pre 81 % KU PFT MAIN FEV1-Post 3.05 L KU PFT MAIN FEV1-%Pred-Post 93 % KU PFT MAIN FEV1/FVC-Pre 74 % KU PFT MAIN [id number] 65 % KU PFT MAIN [id number] 1.91 L/sec KU PFT MAIN IYU3528-%Pred-P 70 % KU PFT MAIN re [id number] 3.55 L/sec KU PFT MAIN CEL4082-%Pred-P 131 % KU PFT MAIN ost PEF-Post 533.9 L/min KU PFT MAIN RVPleth-Pre 2.66 L KU PFT MAIN RVPleth-%Pred-P 124 % KU PFT MAIN re TLCPleth-Pre 6.35 L KU PFT MAIN TLCPleth-%Pred- 97 % KU PFT MAIN Pre DLCOunc-Pre 25.82 ml/min/mmHg KU PFT MAIN DLCOunc-%Pred-P 95 % KU PFT MAIN re DLCOunc-#SD -0.184 ml/min/mmHg KU PFT MAIN DLCOcor-#SD -0.012 ml/min/mmHg KU PFT MAIN DLVA-Pred 4.32 ml/min/mmHg/L KU PFT MAIN DLVA-Pre 4.41 ml/min/mmHg/L KU PFT MAIN DLVA-%Pred-Pre 101 % KU PFT MAIN DLVA-SD 0.73 ml/min/mmHg/L KU PFT MAIN DLVA-LLN 2.86 ml/min/mmHg/L KU PFT MAIN DLVA-ULN 5.78 ml/min/mmHg/L KU PFT MAIN DLVA-#SD 0.111 ml/min/mmHg/L KU PFT MAIN [id number] 70 % K[facility] PFT MAIN Specimen Narrative Performed At KU PFT MAIN Clinical history:->preop work up for CA BG Patient on bronchodilator therapy?->No Is this a pre-surgical evaluation?->Yes Patient being discharged?->No Release to patient->Immediate Performing Organization Address City/State/ZIP Code P toma Number KU PFT MAIN [address] [place] [id number] * HEMOGLOBIN A1C (01/05/2021 7:10 AM CDT) Hemoglobin A1C 5.5 4.0 - 6.0 % K[facility] MAIN LAB Comment: The ADA recommends that most patients with type 1 and type 2 diabetes maintain an A1c level <7%. Specimen Performing Organization Address [facility]/ZIP [facility] [place] P toma Number K[facility] MAIN LAB [address] [place] [address] * LIPID PROFILE (01/05/2021 7:10 AM CDT) Cholesterol 127 <200 MG/DL K[facility] MAIN LAB Triglycerides 128 <150 MG/DL [facility] MAIN LAB HDL 25 (L) >40 MG/DL [facility] MAIN LAB LDL 82 <100 mg/dL K[facility] MAIN LAB VLDL 26 MG/DL K[facility] MAIN LAB Non HDL 102 MG/DL K[facility] MAIN LAB Cholesterol Comment: Calculated non-HDL Cholesterol (non-HDL-C) indirectly measures LDL-C, Lp(a), IDL-C, and VLDL-C. It is a surrogate marker for Apoprotein B. Goal should be less than 130 mg/dL. Specimen Performing Organization Address [facility] P toma Number KU MAIN LAB [address] [place] [address] * US DUPLEX SCAN CAROTID BILATERAL (01/04/2021 4:26 PM CDT) Specimen Bilateral Impressions Performed At 1. Moderate calcified atherosclerosis at the left c arotid bulb and proximal KU RAD RESULTS ICA resulting in approximately 50% visi ble stenosis of the upper carotid bulb and proximal ICA, not confirmed by spec tral analysis. 2. No high-grade common or internal c arotid stenosis identified bilaterally. 3. Calcified atherosclerosis in the p roximal ECA results in moderate stenosis. By my electronic signature, I attest th at I have personally reviewed the images for this examination and formulated the interpretations and opinions expressed in this report Finalized by Raimundo Laguerre M.D. on 01/04/2021 4:58 PM. Dictated by Earl Davila D.O. on 01/04/2021 4:26 PM. Narrative Performed At Carotid Doppler K[facility] RAD RESULTS Clinical Indication: Male, 60 years. CA BG preoperative workup. Technique: Multiple grayscale sonogra phic images were obtained throughout both carotid systems with additional color a nd spectral Doppler acquisitions. Comparison: None Findings: RIGHT: CCA 54 cm/sec ECA 162 PSV ICA 116 EDV ICA 30 Ratio ICA/CCA ~2 The vertebral artery demonstrates [place] l direction of flow. Grayscale images demonstrate mild bilat eral intimal wall thickening and mild calcified atherosclerosis at the caroti d bulb and proximal and mid ICA without visible significant stenosis. Moderate calcified atherosclerosis is also demonstrated within the proximal ECA re sulting in probable mild moderate stenosis. Spectral analysis demonstrate s no high-grade CCA or ICA stenosis. LEFT: CCA 79 cm/sec ECA 69 PSV ICA 101 EDV ICA 29 Ratio ICA/CCA 1.3 The vertebral artery demonstrates [place] l direction of flow. Grayscale images demonstrate mild bilat eral intimal wall thickening and moderate calcified atherosclerosis at the caroti d bulb and proximal ICA that results in approximately 50% visible stenosis of t he upper carotid bulb at proximal ICA. No visible high-grade stenosis. Spectral a nalysis demonstrates no high-grade CCA or ICA stenosis. Procedure Note Interface, Radiant Results - 01/04/2021 5:01 PM CDT Carotid Doppler Clinical Indication: Male, 60 years. CABG preoperative workup. Technique: Multiple grayscale sonographic images were obtained throughout both carotid systems with additional color and spectral Doppler acquisitions. Comparison: None Findings: RIGHT: CCA 54 cm/sec ECA 162 PSV ICA 116 EDV ICA 30 Ratio ICA/CCA ~2 The vertebral artery demonstrates normal direction of flow. Grayscale images demonstrate mild bilateral intimal wall thickening and mild calcified atherosclerosis at the carotid bulb and proximal and mid ICA without visible significant stenosis. Moderate calcified atherosclerosis is also demonstrated within the proximal ECA resulting in probable mild moderate stenosis. Spectral analysis demonstrates no high-grade CCA or ICA stenosis. LEFT: CCA 79 cm/sec ECA 69 PSV ICA 101 EDV ICA 29 Ratio ICA/CCA 1.3 The vertebral artery demonstrates normal direction of flow. Grayscale images demonstrate mild bilateral intimal wall thickening and moderate calcified atherosclerosis at the carotid bulb and proximal ICA that results in approximately 50% visible stenosis of the upper carotid bulb at proximal ICA. No visible high-grade stenosis. Spectral analysis demonstrates no high-grade CCA or ICA stenosis. IMPRESSION 1. Moderate calcified atherosclerosis a t the left carotid bulb and proximal ICA resulting in approximately 50% visible stenosis of the upper carotid bulb and proximal ICA, not confirmed by spectral analysis. 2. No high-grade common or internal car otid stenosis identified bilaterally. 3. Calcified atherosclerosis in the pro ximal ECA results in moderate stenosis. By my electronic signature, I attest that I have personally reviewed the images for this examination and formulated the interpretations and opinions expressed in this report Finalized by Raimundo Laguerre M.D. on 01/04/2021 4:58 PM. Dictated by Earl Davila D.O. on 01/04/2021 4:26 PM. Performing Organization Address City/State/ZIP Code P toma Number KU RAD RESULTS * CARDIAC CATH REPORT (01/04/2021 1:59 PM CDT) Procedure Note Tom Her MD - 01/04/2021 1:59 PM CDT [facility] CARDIAC CATHETERIZATION REPORT Page 2 PRAKASH Davison : 1960 KU#: [id number] KU MR #/Billing ID #: [id number] / [id number] DATE: 01/04/2021 REMOTE BROADCAST TECHNICIAN: Pramod Quiles MD DICTATING PROVIDER: Tom Her MD REFERRING PHYSICIAN: Dr. ANA Pollock INDICATION FOR PROCEDURE: Mr. Mcpherson is a 60-year-old gentleman with a past medical history of CAD, status post multiple PCIs, with the most recent PCI on the right coronary artery was done in September of this year. He does have a past medical history of hypertension, hyperlipidemia, and current smoking. He is currently admitted to the hospital for unstable angina and is referred to the cardiac bundle tier and labeler for undergoing left heart cath to rule out active coronary artery ischemia. PROCEDURES PERFORMED: 1. Left heart catheterization. 2. Selective coronary angiography. CONSENT: Informed consent was obtained from the patient after a thorough discussion of risks, benefits, and potential complications. The patient verbalized understanding and agreed to undergo the procedure. PROCEDURE DETAILS: The patient was brought to the cardiac catheterization area in a fasting and a nonsedated state. A total of 2 mg of IV Versed and 75 mcg of IV fentanyl were used to maintain the moderate sedation throughout the procedure. The moderate conscious sedation was maintained by me, my attending, and the bundle tier and labeler staff for the entirety of the procedure and at its conclusion. LEFT HEART CATHETERIZATION VIA RADIAL ACCESS: The right wrist area was prepped and draped in our usual typical sterile fashion. A Barbeau test deemed acceptable for radial approach. After this, we utilized 3 mL of 1% lidocaine to anesthetize the skin. A micro access kit was used to access the right radial artery. Over a wire, a 6-Frisian slender sheath was introduced, 4000 units of heparin were administered intravenously, and then 2.5 mg of intra-arterial verapamil and 200 mcg of intra-arterial nitro were administered once access was obtained. Subsequently, we utilized 5 Fr TIG catheter to perform left heart catheterization and selective angiography. All catheters and wires were removed at the conclusion of the procedure. A TR band was placed on the right wrist to achieve hemostasis. The patient was transferred back to the holding area in a hemodynamic stable and pain-free state. HEMODYNAMICS: Aortic pressure of 137/77mmHg, with a mean of 102 mmHg. There was no gradient across the aortic valve on pullback. LVEDP of 8-10 mmHg. SELECTIVE CORONARY ANGIOGRAPHY: 1. Left main coronary artery: The left main coronary artery arises from the left coronary sinus. The left main artery bifurcates into left anterior descending artery and the left circumflex artery. It is free of any significant angiographic disease. 2. Left anterior descending artery: The left anterior descending artery is a large vessel which gives rise to 2 diagonal vessels. There is a prior stent in the proximal to mid LAD. There appears to 70-80% in stent restenosis in mid portion of stent. There are diffuse luminal irregularities in LAD territory. First diagonal appears to have 60% to 70% ostial lesion. Second diagonal has atleast 70% ostial stenosis and 60% in the midportion. 3. Left circumflex artery appears to be a medium caliber artery. The circumflex gives rise to 2 OM branches. There appears to be a stent present in the proximal portion of the circumflex artery extending all the way to the 1st OM branch. There appears to be 40-50% in stent stenosis of this stent. The 2nd OM branch has 50-60% proximal stenosis. 2nd OM branch is a small caliber vessel. Left to right collaterals were also noted. 4. Right coronary artery: The right cor onary arises from the right coronary cusp. It is a large caliber vessel. It is a right dominant system. There appears to be a stent present from the proximal portion to the distal portion of the right coronary artery. There appears to be a severe 99% in-stent stenosis in the proximal portion of the stent to the midportion of the stent. The distal portion of the stent has almost 60% of the lesion. There appears to be a stent present in the right posterolateral branch of the coronary artery, and that stent has 20-30% stenosis. AIR KERMA: 341 mGy. FLUOROSCOPY TIME: 5.6 minutes. CONTRAST USED: 60 mls of the Isovue 370 The attending, Dr. Quiles, was present for the procedure and performed clements steps wherever felt necessary. FINAL IMPRESSION: 1. Severe 3-vessel coronary artery disea se as described above 2. There appears to be very severe, 99% in-stent stenosis at the proximal portion of the right coronary artery. Recommendations: We would recommend cardiothoracic surgery consult for evaluation of the coronary artery bypass graft. Pramod Quiles MD TD/MedQ /[id number] cc: - Dr. Pollock Performing Organization Address City/State/ZIP Code P toma Number OTHER OUTSIDE LAB from Last 3 Months Insurance Type Payer Benefit Subscriber ID Effective Phone Address Plan / Dates Group [facility] [id number] 2020-P [place] [id number] 2021-P MEDICAID resent 12 [address] [facility] (Home) [place] [address] Advance Directives Patient Medical Director Explanation Type Date Recorded Advance 01/01/2021 8:25 PM Directive/DPOA Date Inactivated Comments Code Status Date Activated 01/20/2021 6:35 PM Full Code 01/02/2021 4:54 AM Provider has discussed Code Status No, more discussi on w/Patient or Family? needed
--- OUTSIDE RECORDS SUMMARY | 2021-04-05 07:09 | XMS REPORT | Encounter Summary ---
Author Author [facility] Organization [facility] Address Unknown Phone Unavailable Care Team Providers Care Commercial Portfolio Manager Name Role Phone Nilson [place] [phone] Encounter Details Care Team Description Date Type Department 02/04/2021 Travel Social History Date Tobacco Use Types Packs/Day [...] impairment: No documented as of this encounter Plan of Treatment Not on filedocumented as of this encounter Goals Goal Patient Associated Recent Progress Patient-Stat Aut hor Goal Type Problems ed? [facility] On track (01/07/2021 Yes Chelsie 10:51 AM CDT) VIJAYA Santamaria [facility] On track (01/07/2021 No Yas Meléndez 10:51 AM CDT) documented as of this encounter Visit Diagnoses Not on filedocumented in this encounter Additional Health Concerns Assessment Noted Time A fall risk assessment has been completed for the pat ient 02/04/2021 10:22 AM CDT documented as of this encounter
--- OUTSIDE RECORDS SUMMARY | 2021-04-05 07:09 | XMS REPORT | Encounter Summary ---
Author Author [facility] Organization [facility] Address Unknown Phone Unavailable Care Team Providers Care Pallet Sorter Name Role Phone Nilson [place] [phone] Encounter Details Care Team Description Date Type Department 02/10/2021 Travel Social History Date Tobacco Use Types [...] Patient-Stat Aut hor Goal Type Problems ed? [facility] On track (01/07/2021 Yes Chelsie 10:51 AM CDT) VIJAYA Santamaria [facility] On track (01/07/2021 No Yas Meléndez 10:51 AM CDT) documented as of this encounter Visit Diagnoses Not on filedocumented in this encounter Additional Health Concerns Assessment Noted Time A fall risk assessment has been completed for the pat ient 02/04/2021 10:22 AM CDT documented as of this encounter
== END 2021-04-03 12:38 | disposition home or self-care (01) ==
LOC: EDUNIT# 11:27 → ER FS 11:29
DX: R19.7 Diarrhea, unspecified (principal); I25.2 Old myocardial infarction; I10 Essential (primary) hypertension; E78.00 Pure hypercholesterolemia, unspecified; I25.10 Atherosclerotic heart disease of native coronary artery without angina pectoris; Z79.899 Other long term (current) drug therapy; Z79.82 Long term (current) use of aspirin; Z79.01 Long term (current) use of anticoagulants
CPT/HCPCS: 36415; 80053; 85025; 96360

== ENCOUNTER 2022-02-09 09:23 | Emergency (ER) | payer MEDICARE, MEDICAID ==
[~2022-02-09] VITALS: Ht 172 cm; Wt 69.9 kg
[~2022-02-09 09:23] MED LIST changes: +CYCL10TA25 PO; -CYCL10TA9 PO; +DICY20TA PO; -DICY20TA10 PO; +LOPE-134 PO
[2022-02-09] MEDS ORDERED: CYCL10TA25 PO (09:53)
--- NOTE | 2022-02-09 09:53 | ED Back Pain ---
General Chief Complaint: Back Problems Stated Complaint: YOUSIF FLANK PAIN Nursing Triage Note: PT REPORTS HE WENT RAFTING ON MONDAY AND REPORTS HE DRANK A LOT OF ALCOHOL WHILE [place] THE [place]. PT REPORTS HIS LOWER BACK HAS BEEN HURTING SINCE HE GOT OFF THE RAFT. Source of Information: Patient History of Present Illness Date Seen by Provider: Feb 09, 2022 Time Seen by Provider: 09:30 Initial Comments Patient is a 62-year-old male who presents with back pain after rafting 4 days ago. He states he felt dehydrated was treated at urgent care yesterday where he was instructed to drink a lot of water. Patient is currently on oxycodone for treatment of chronic neck pain. Patient denies injury or trauma to low back. He reports pain worse in the morning after waking which gradually improves throughout the day. He is taking additional medication or followed up with his primary care provider. He denies lower extremity weakness or loss of sensation. No saddle anesthesia loss of bowel or bladder function. No night sweats or unexplained weight loss. No other acute symptoms or complaints. Timing/Duration: 12-24 Hours Severity: Moderate Pain/Injury Location: Other Radiation: Other Method of Injury: Other Modifying Factors: Improves With Other Associated Symptoms: other Allergies and Home Medications Allergies Coded Allergies: No Known Drug Allergies (Unverified , 05/22/20) Patient Home Medication List Home Medication List Reviewed: Yes Alprazolam (Alprazolam) 1 Mg Tablet, 1 MG PO BID PRN for ANXIETY, (Reported) Entered as Reported by: CASSIE BURNETTE on 05/22/20 1637 Aspirin (Aspirin) 81 Mg Tab.chew, 81 MG PO DAILY Prescribed by: MARIELLA LOPEZ on 09/16/20 1032 Atorvastatin Calcium (Lipitor) 40 Mg Tablet, 40 MG PO HS Prescribed by: MARIELLA LOPEZ on 09/16/20 1032 Ciprofloxacin HCl (Ciprofloxacin HCl) 500 Mg Tablet, 500 MG PO BID Prescribed by: MANDY TEE on 03/14/21 1413 Clopidogrel Bisulfate (Clopidogrel) 75 Mg Tablet, 75 MG PO DAILY Prescribed by: MARIELLA LOPEZ on 09/16/20 1032 Dicyclomine HCl (Dicyclomine HCl) 20 Mg Tablet, 20 MG PO QID PRN for Abdominal Pain/Nausea Prescribed by: MANDY TEE on 03/14/21 1413 Lidocaine (Recticare) 15 Gm Cream..g., 0.25 GM TP 5XD PRN for HEMMORRHOID DISCOMFORT Prescribed by: MANDY TEE on 03/14/21 1413 Loperamide HCl (Imodium A-D) 2 Mg Tablet, 2 MG PO BID PRN Prescribed by: NEELA SANTIZO on 04/03/21 1217 Metoprolol Succinate (Metoprolol Succinate) 25 Mg Tab.er.24h, 25 MG PO DAILY Prescribed by: MARIELLA LOPEZ on 09/16/20 1032 Metronidazole (Metronidazole) 500 Mg Tablet, 500 MG PO BID Prescribed by: MANDY TEE on 03/14/21 1413 Omeprazole (Omeprazole) 40 Mg Capsule.dr, 40 MG PO DAILY PRN for HEARTBURN, (Reported) Entered as Reported by: ЮЛИЯ COELLO on 09/15/20 1054 Oxycodone HCl/Acetaminophen (Oxycodon-Acetaminophen 7.5-325) 1 Each Tablet, 1 EA PO TID PRN for PAIN-MODERATE (5-7), (Reported) Entered as Reported by: ЮЛИЯ COELLO on 09/15/20 1054 Zolpidem Tartrate (Ambien) 10 Mg Tablet, 10 MG PO HS PRN for SLEEP, (Reported) Entered as Reported by: ЮЛИЯ COELLO on 09/15/20 1054 Review of Systems Constitutional: see HPI EENTM: see HPI Respiratory: see HPI Cardiovascular: see HPI Gastrointestinal: see HPI Genitourinary: see HPI Musculoskeletal: see HPI Skin: see HPI Psychiatric/Neurological: See HPI All Other Systems Reviewed Negative Unless Noted: Yes Past Wkplycw-[place]-Ttmiwb Hx Patient Social History Tobacco Use?: Yes Tobacco type used: Cigarettes Smoking Status: Current Everyday Smoker Use of E-Cig and/or Vaping dev: No Substance use?: No Alcohol Use?: No Pt feels they are or have been: No Immunizations Up To Date Tetanus Booster (TDap): Unknown First/Initial COVID19 Vaccinat: January, Second COVID19 Vaccination Jose Enrique: February, Third COVID19 Vaccination Date: January, Past Medical History Surgery/Hospitalization HX: Quadruple CABG, Coronary stents x 19, GB, IBS-chronic abd issues Surgeries: Yes Coronary Stent, Open Heart Surgery Cardiac: Yes (X13 STENTS) Coronary Artery Disease, Heart Attack, High Cholesterol, Hypertension Genitourinary: No Gastrointestinal: No Endocrine: No HEENT: No Cancer: No Psychosocial: No Physical Exam Vital Signs Vital Signs - First Documented 02/09/22 09:25 Temp 36.2 Pulse 71 Resp 18 B/P (MAP) 152/82 (105) Pulse Ox 97 O2 Delivery Room Air Capillary Refill : Less Than 3 Seconds Height, Weight, BMI Height: '" Weight: lbs. oz. kg; 23.00 BMI Method: General Appearance: No Apparent Distress, WD/WN, Anxious Respiratory: Lungs Clear Gastrointestinal: Non Tender, Soft Back: No CVA Tenderness, Decreased Range of Motion, Muscle Spasm Neurologic/Psychiatric: Alert, Oriented x3, No Motor/Sensory Deficits Progress/Results/Core Measures Results/Orders Vital Signs/I&O 02/09/22 09:25 Temp 36.2 Pulse 71 Resp 18 B/P (MAP) 152/82 (105) Pulse Ox 97 O2 Delivery Room Air Blood Pressure Mean: 105 Departure Communication (Admissions) Patient with reproducible soft tissue low back pain. No neurologic deficits. Patient currently on oxycodone. Will prescribe Flexeril with instructions to follow-up with PCP for further management. Return precautions reviewed. Impression Primary Impression: Lumbar sprain Disposition: HOME, SELF-CARE Condition: Stable Departure-Patient Inst. Decision time for Depature: 09:50 Referrals: JAYCOB MIDDLETON MD (PCP) Primary Care Physician Add. Discharge Instructions: Please go home and rest. Continue oxycodone and flexeril as directed. Avoid strenuous physical activity and heavy lifting. Follow up with your PCP in 3-5 days for re-evaluation. All discharge instructions reviewed with patient and/or family. Voiced understanding. Scripts Cyclobenzaprine HCl (Cyclobenzaprine HCl) 10 Mg Tablet 10 MG PO TID, #30 TAB Prov: RAFAEL JOSHI DO 02/09/22 RAFAEL JOSHI DO Feb 09, 2022 09:53
[2022-02-09 10:07] VITALS: BP 152/82
== END 2022-02-09 09:50 | disposition home or self-care (01) ==
LOC: EDUNIT# 09:23 → ER FS 09:24
DX: S33.5XXA Sprain of ligaments of lumbar spine, initial encounter (principal); G89.29 Other chronic pain; M54.2 Cervicalgia; F17.210 Nicotine dependence, cigarettes, uncomplicated; Z79.891 Long term (current) use of opiate analgesic; X58.XXXA Exposure to other specified factors, initial encounter
CPT/HCPCS: 99281

== ENCOUNTER → 2022-05-03 | Outpatient (CLI) | payer MEDICARE, MEDICAID ==
--- NOTE | 2022-05-03 10:31 | Diagnostic Imaging Report ---
EXAMINATION: CT chest without contrast. TECHNIQUE: Multiple contiguous axial images were obtained through the chest without the use of intravenous contrast. All CT scans use one or more of the following dose optimizing techniques: automated exposure control, MA and/or KvP adjustment based on patient size and exam type or iterative reconstruction. HISTORY: LUNG NODULE COMPARISON: 05/22/2020 FINDINGS: There is no edema or pneumonia. No pleural effusion. No pneumothorax. No suspicious nodules. There is mild bibasilar atelectasis. There is no axillary or supraclavicular lymphadenopathy. There is no mediastinal lymphadenopathy. Heart size is normal. There are severe coronary artery calcifications. No pericardial effusion. Aorta is normal in caliber. There has been coronary artery bypass grafting. Limited views of the upper abdomen show changes cholecystectomy. There are no suspicious osseus lesions. IMPRESSION: 1. No suspicious pulmonary nodule. Dictated by: Dictated on workstation # [id number]
== END ==
LOC: RAD FS 08:58
PROVIDERS: ATTEND Family Medicine
DX: R91.1 Solitary pulmonary nodule (principal)
CPT/HCPCS: 71250

== ENCOUNTER 2022-08-20 19:30 | Emergency (ER) | payer MEDICARE, MEDICAID ==
[2022-08-20] MEDS ORDERED: ONDANSETRON 4 MG (ZOFRAN) ORAL DISSOLVE TAB PO STA (19:47)
[2022-08-20] MEDS ORDERED: morphine INJ 10 MG/ML 1ML (SYR OR VIAL) IM STA (19:47)
--- NOTE | 2022-08-20 19:55 | ED Back Pain ---
General Chief Complaint: Back Problems Stated Complaint: SEVERE BACK PAIN Nursing Triage Note: Pt complaining of lower back pain that started a couple of days ago. No injury reported by pt. Source of Information: Patient Exam Limitations: No Limitations History of Present Illness Date Seen by Provider: Aug 20, 2022 Time Seen by Provider: 19:30 Initial Comments Patient is a 62-year-old male who presents with exacerbation of chronic low back pain for the past several days. Denies trauma or known repetitive strain injury. Pain is located in the lower right lumbar sacral area and is worse with palpation and movement. Pain does radiate to his anterior legs but is not associated with saddle anesthesia, loss of bowel or bladder function. No midline back pain. No CVA tenderness, abdominal pain, nausea vomiting sweats hematuria dysuria or other symptoms. No night sweats weight loss or history of cancer. No fever chills or sweats. Patient takes Percocet 4 times daily for chronic neck pain which she has taken with limited relief. No other symptoms or complaints. Location: Lumbar Spine Timing/Duration: Other Severity: Moderate Radiation: Other Modifying Factors: Improves With Other Allergies and Home Medications Allergies Coded Allergies: No Known Drug Allergies (Unverified , 05/22/20) Patient Home Medication List Home Medication List Reviewed: Yes Alprazolam (Alprazolam) 1 Mg Tablet, 1 MG PO BID PRN for ANXIETY, (Reported) Entered as Reported by: CASSIE BURNETTE on 05/22/20 1637 Aspirin (Aspirin) 81 Mg Tab.chew, 81 MG PO DAILY Prescribed by: MARIELLA LOPEZ on 09/16/20 1032 Atorvastatin Calcium (Lipitor) 40 Mg Tablet, 40 MG PO HS Prescribed by: MARIELLA LOPEZ on 09/16/20 1032 Ciprofloxacin HCl (Ciprofloxacin HCl) 500 Mg Tablet, 500 MG PO BID Prescribed by: MANDY TEE on 03/14/21 1413 Clopidogrel Bisulfate (Clopidogrel) 75 Mg Tablet, 75 MG PO DAILY Prescribed by: MARIELLA LOPEZ on 09/16/20 1032 Cyclobenzaprine HCl (Cyclobenzaprine HCl) 10 Mg Tablet, 10 MG PO TID Prescribed by: RAFAEL JOSHI on 02/09/22 0953 Dicyclomine HCl (Dicyclomine HCl) 20 Mg Tablet, 20 MG PO QID PRN for Abdominal Pain/Nausea Prescribed by: MANDY TEE on 03/14/21 1413 Lidocaine (Recticare) 15 Gm Cream..g., 0.25 GM TP 5XD PRN for HEMMORRHOID DISCOMFORT Prescribed by: MANDY TEE on 03/14/21 1413 Loperamide HCl (Imodium A-D) 2 Mg Tablet, 2 MG PO BID PRN Prescribed by: NEELA SANTIZO on 04/03/21 1217 Metoprolol Succinate (Metoprolol Succinate) 25 Mg Tab.er.24h, 25 MG PO DAILY Prescribed by: MARIELLA LOPEZ on 09/16/20 1032 Metronidazole (Metronidazole) 500 Mg Tablet, 500 MG PO BID Prescribed by: MANDY TEE on 03/14/21 1413 Omeprazole (Omeprazole) 40 Mg Capsule.dr, 40 MG PO DAILY PRN for HEARTBURN, (Reported) Entered as Reported by: ЮЛИЯ COELLO on 09/15/20 1054 Oxycodone HCl/Acetaminophen (Oxycodon-Acetaminophen 7.5-325) 1 Each Tablet, 1 EA PO TID PRN for PAIN-MODERATE (5-7), (Reported) Entered as Reported by: ЮЛИЯ COELLO on 09/15/20 1054 Zolpidem Tartrate (Ambien) 10 Mg Tablet, 10 MG PO HS PRN for SLEEP, (Reported) Entered as Reported by: ЮЛИЯ COELLO on 09/15/20 1054 Review of Systems Constitutional: see HPI EENTM: see HPI Respiratory: see HPI Cardiovascular: see HPI Gastrointestinal: see HPI Genitourinary: see HPI Musculoskeletal: see HPI Skin: see HPI Psychiatric/Neurological: See HPI All Other Systems Reviewed Negative Unless Noted: No Past Ivhbbnr-Qhhgns-Ycmdvs Hx Patient Social History Tobacco Use?: No Tobacco type used: Cigarettes Smoking Status: Current Everyday Smoker Use of E-Cig and/or Vaping dev: No Substance use?: No Alcohol Use?: No Immunizations Up To Date Tetanus Booster (TDap): Unknown First/Initial COVID19 Vaccinat: January, Second COVID19 Vaccination Jose Enrique: February, Third COVID19 Vaccination Date: January, Past Medical History Surgery/Hospitalization HX: Quadruple CABG, Coronary stents x 19, GB, IBS-chronic abd issues Surgeries: Yes Coronary Stent, Open Heart Surgery Cardiac: Yes (X13 STENTS) Coronary Artery Disease, Heart Attack, High Cholesterol, Hypertension Genitourinary: No Gastrointestinal: No Endocrine: No HEENT: No Cancer: No Psychosocial: No Physical Exam Vital Signs Vital Signs - First Documented 08/20/22 19:30 Pulse 70 Resp 20 B/P (MAP) 177/87 (117) Pulse Ox 100 O2 Delivery Room Air Capillary Refill : Less Than 3 Seconds Height, Weight, BMI Height: '" Weight: lbs. oz. kg; 23.00 BMI Method: General Appearance: Moderate Distress HEENT: PERRL/EOMI, Normal ENT Inspection, Moist Mucous Membranes Neck: Full Range of Motion, Normal Inspection, Non Tender Cardiovascular: Regular Rate, Rhythm Respiratory: Lungs Clear Back: No CVA Tenderness, Muscle Spasm (Right lumbar sacral paravertebral tenderness to palpation) Neurologic/Psychiatric: No Motor/Sensory Deficits, Normal Mood/Affect Progress/Results/Core Measures Results/Orders My Orders Orders - RAFAEL JOSHI DO Morphine Injection (Morphine Injection (08/20/22 19:47) Ketorolac Injection (Toradol Injection) (08/20/22 20:00) Ondansetron Oral Dissolve Tab (Zofran (08/20/22 19:47) Vital Signs/I&O 08/20/22 19:30 Pulse 70 Resp 20 B/P (MAP) 177/87 (117) Pulse Ox 100 O2 Delivery Room Air Blood Pressure Mean: 117 Departure Communication (Admissions) Reproducible musculoskeletal pain without neurologic compromise. Pain addressed with clinical improvement. Recommendations are supportive care watchful waiting and PCP follow-up. Return precautions reviewed. Patient verbalizes understanding agreement discharge instructions prior to departure. Impression Primary Impression: Lumbar arthropathy Disposition: 01 HOME, SELF-CARE Condition: Stable Departure-Patient Inst. Decision time for Depature: 19:59 Referrals: JAYCOB MIDDLETON MD (PCP) Primary Care Physician Patient Instructions: Low Back Pain ED Add. Discharge Instructions: You were evaluated in the emergency department for low back pain. Please avoid strenuous physical activity and heavy lifting. Continue home medication and take newly prescribed medications as directed. Follow-up with your PCP early next week for further management. Return to the ED if new or concerning symptoms. All discharge instructions reviewed with patient and/or family. Voiced understanding. RAFAEL JOSHI DO Aug 20, 2022 19:55
[2022-08-20] MEDS ORDERED: KETOROLAC 60 MG/2 ML VIAL IM ONE (20:00)
[2022-08-20 20:04] VITALS: BP 177/87
== END 2022-08-20 20:04 | disposition home or self-care (01) ==
LOC: EDUNIT# 19:30 → ER FS 19:32
DX: M12.88 Other specific arthropathies, not elsewhere classified, other specified site (principal); G89.29 Other chronic pain; M54.2 Cervicalgia; Z28.310 Unvaccinated for COVID-19; Z79.891 Long term (current) use of opiate analgesic
CPT/HCPCS: 99284

== ENCOUNTER 2023-02-18 17:01 | Emergency (ER) | payer MEDICARE, MEDICAID ==
[2023-02-18] MEDS ORDERED: FAMOTIDINE 20 MG (PEPCID) TABLET PO STA (17:05)
[2023-02-18 17:10] LABS: BASOPHILS # (AUTO) 0.1 10^3/uL (0.0-0.1); BASOPHILS % (AUTO) 1 % (0-10); EOSINOPHILS # (AUTO) 0.3 10^3/uL (0.0-0.3); EOSINOPHILS % (AUTO) 4 % (0-10); HEMATOCRIT 39 % (40-54); HEMOGLOBIN 13.4 g/dL (13.3-17.7); LYMPHOCYTES # (AUTO) 2.5 10^3/uL (1.0-4.0); LYMPHOCYTES % (AUTO) 35 % (12-44); MEAN CORPUSCULAR HEMOGLOBIN 30 pg (25-34); MEAN CORPUSCULAR HGB CONC 35 g/dL (32-36); MEAN CORPUSCULAR VOLUME 87 fL (80-99); MEAN PLATELET VOLUME 9.7 fL (9.0-12.2); MONOCYTES # (AUTO) 0.6 10^3/uL (0.0-1.0); MONOCYTES % (AUTO) 8 % (0-12); NEUTROPHILS # (AUTO) 3.7 10^3/uL (1.8-7.8); NEUTROPHILS % (AUTO) 52 % (42-75); PLATELET COUNT 188 10^3/uL (130-400); WHITE BLOOD COUNT 7.2 10^3/uL (4.3-11.0)
--- NOTE | 2023-02-18 17:11 | ED Cardiac General ---
History of Present Illness General Chief Complaint: Chest Pain Stated Complaint: SLURRED SPEECH; ONE-SIDED WEAKNESS Source: patient, EMS, old records Exam Limitations: no limitations History of Present Illness Date Seen by Provider: Feb 18, 2023 Time Seen by Provider: 17:02 Initial Comments 63-year-old male with past medical history of CAD with multiple stents and CABG coming in via EMS from home due to epigastric burning. Started a couple hours a go, he took some Protonix and it persisted. Per family, for the past day it does seem like he has been slurring his speech somewhat more. He denies any trauma to his head, weakness, numbness, chest pain, shortness of breath, nausea, vomiting, diarrhea, rash, or any other concerns. He took his Plavix today, no aspirin. EMS reports EKG with no STEMI and a right bundle branch block. They report his glucose was 99 Allergies and Home Medications Allergies Coded Allergies: No Known Drug Allergies (Unverified , 05/22/20) Patient Home Medication List Home Medication List Reviewed: Yes Alprazolam (Alprazolam) 1 Mg Tablet, 1 MG PO BID PRN for ANXIETY, (Reported) Entered as Reported by: CASSIE BURNETTE on 05/22/20 1637 Aspirin (Aspirin) 81 Mg Tab.chew, 81 MG PO DAILY Prescribed by: MARIELLA LOPEZ on 09/16/20 1032 Atorvastatin Calcium (Lipitor) 40 Mg Tablet, 40 MG PO HS Prescribed by: MARIELLA LOPEZ on 09/16/20 1032 Ciprofloxacin HCl (Ciprofloxacin HCl) 500 Mg Tablet, 500 MG PO BID Prescribed by: MANDY TEE on 03/14/21 1413 Clopidogrel Bisulfate (Clopidogrel) 75 Mg Tablet, 75 MG PO DAILY Prescribed by: MARIELLA LOPEZ on 09/16/20 1032 Cyclobenzaprine HCl (Cyclobenzaprine HCl) 10 Mg Tablet, 10 MG PO TID Prescribed by: RAFAEL JOSHI on 02/09/22 0953 Dicyclomine HCl (Dicyclomine HCl) 20 Mg Tablet, 20 MG PO QID PRN for Abdominal Pain/Nausea Prescribed by: MANDY TEE on 03/14/21 1413 Lidocaine (Recticare) 15 Gm Cream..g., 0.25 GM TP 5XD PRN for HEMMORRHOID DISCOMFORT Prescribed by: MANDY TEE on 03/14/21 1413 Loperamide HCl (Imodium A-D) 2 Mg Tablet, 2 MG PO BID PRN Prescribed by: NEELA SANTIZO on 04/03/21 1217 Metoprolol Succinate (Metoprolol Succinate) 25 Mg Tab.er.24h, 25 MG PO DAILY Prescribed by: MARIELLA LOPEZ on 09/16/20 1032 Metronidazole (Metronidazole) 500 Mg Tablet, 500 MG PO BID Prescribed by: MANDY TEE on 03/14/21 1413 Omeprazole (Omeprazole) 40 Mg Capsule.dr, 40 MG PO DAILY PRN for HEARTBURN, (Reported) Entered as Reported by: ЮЛИЯ COELLO on 09/15/20 1054 Oxycodone HCl/Acetaminophen (Oxycodon-Acetaminophen 7.5-325) 1 Each Tablet, 1 EA PO TID PRN for PAIN-MODERATE (5-7), (Reported) Entered as Reported by: ЮЛИЯ COELLO on 09/15/20 1054 Zolpidem Tartrate (Ambien) 10 Mg Tablet, 10 MG PO HS PRN for SLEEP, (Reported) Entered as Reported by: ЮЛИЯ COELLO on 09/15/20 1054 Review of Systems Review of Systems Constitutional: No fever EENTM: No Symptoms Reported Respiratory: No Symptoms Reported Cardiovascular: See HPI Gastrointestinal: See HPI Genitourinary: No Symptoms Reported Musculoskeletal: no symptoms reported Skin: no symptoms reported Psychiatric/Neurological: No Symptoms Reported Endocrine: No Symptoms Reported Past Pwrkkvf-Bbzmyl-Unylmh Hx Immunizations Up To Date Tetanus Booster (TDap): Unknown First/Initial COVID19 Vaccinat: January, Second COVID19 Vaccination Jose Enrique: February, Third COVID19 Vaccination Date: January, Past Medical History Surgery/Hospitalization HX: Quadruple CABG, Coronary stents x 19, GB, IBS-chronic abd issues Surgeries: Yes Coronary Stent, Open Heart Surgery Cardiac: Yes (X13 STENTS) Coronary Artery Disease, Heart Attack, High Cholesterol, Hypertension Genitourinary: No Gastrointestinal: No Endocrine: No HEENT: No Cancer: No Psychosocial: No Physical Exam Vital Signs Vital Signs - First Documented 02/18/23 17:13 Temp 36.5 Pulse 64 Resp 14 B/P (MAP) 154/90 (111) Pulse Ox 98 O2 Delivery Room Air Capillary Refill : Height, Weight, BMI Height: '" Weight: lbs. oz. kg; 23.00 BMI Method: General Appearance: No Apparent Distress, WD/WN HEENT: PERRL/EOMI, Normal ENT Inspection, Pharynx Normal Neck: Full Range of Motion, Normal Inspection, Non Tender, Supple Respiratory: Chest Non Tender, Lungs Clear, Normal Breath Sounds, No Accessory Muscle Use, No Respiratory Distress Cardiovascular: Regular Rate, Rhythm, No Edema, Normal Peripheral Pulses Gastrointestinal: Normal Bowel Sounds, Non Tender, Soft; No Distended, No Guarding Extremity: Normal Capillary Refill, Normal Inspection, Normal Range of Motion, Non Tender, No Calf Tenderness, No Pedal Edema Neurologic/Psychiatric: Alert, Oriented x3, No Motor/Sensory Deficits, Normal Mood/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, 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 Norm as Tested, Other (Normal visual levine, normal visual acuity, normal speech, normal hearing, normal cwbepm-su-kcnn, normal fmko-ne-eboy) Skin: Normal Color, Warm/Dry Progress/Results/Core Measures Results/Orders Lab Results Laboratory Tests Test 02/18/23 17:03 02/18/23 18:57 Range/Units White Blood Count 7.2 4.3-11.0 10^3/uL Red Blood Count 4.44 4.30-5.52 10^6/uL Hemoglobin 13.4 13.3-17.7 g/dL Hematocrit 39 L 40-54 % Mean Corpuscular Volume 87 80-99 fL Mean Corpuscular Hemoglobin 30 25-34 pg Mean Corpuscular Hemoglobin Concent 35 32-36 g/dL Red Cell Distribution Width 14.6 H 10.0-14.5 % Platelet Count 188 130-400 10^3/uL Mean Platelet Volume 9.7 9.0-12.2 fL Immature Granulocyte % (Auto) 0 % Neutrophils (%) (Auto) 52 42-75 % Lymphocytes (%) (Auto) 35 12-44 % Monocytes (%) (Auto) 8 0-12 % Eosinophils (%) (Auto) 4 0-10 % Basophils (%) (Auto) 1 0-10 % Neutrophils # (Auto) 3.7 1.8-7.8 10^3/uL Lymphocytes # (Auto) 2.5 1.0-4.0 10^3/uL Monocytes # (Auto) 0.6 0.0-1.0 10^3/uL Eosinophils # (Auto) 0.3 0.0-0.3 10^3/uL Basophils # (Auto) 0.1 0.0-0.1 10^3/uL Immature Granulocyte # (Auto) 0.0 0.0-0.1 10^3/uL Prothrombin Time 14.2 12.2-14.7 SEC INR Comment 1.1 0.8-1.4 Activated Partial Thromboplast Time 27 24-35 SEC Sodium Level 134 L 135-145 MMOL/L Potassium Level 3.7 3.6-5.0 MMOL/L Chloride Level 101 98-107 MMOL/L Carbon Dioxide Level 20 L 21-32 MMOL/L Anion Gap 13 5-14 MMOL/L Blood Urea Nitrogen 5 L 7-18 MG/DL Creatinine 0.66 0.60-1.30 MG/DL Estimat Glomerular Filtration Rate 104 BUN/Creatinine Ratio 8 Glucose Level 89 70-105 MG/DL Calcium Level 9.4 8.5-10.1 MG/DL Corrected Calcium 9.4 8.5-10.1 MG/DL Magnesium Level 1.9 1.6-2.4 MG/DL Total Bilirubin 0.4 0.1-1.0 MG/DL Aspartate Amino Transf (AST/SGOT) 64 H 5-34 U/L Alanine Aminotransferase (ALT/SGPT) 64 H 0-55 U/L Alkaline Phosphatase 81 40-136 U/L Troponin I < 0.30 < 0.30 <0.30 NG/ML Pro-B-Type Natriuretic Peptide 99.9 <125.0 PG/ML Total Protein 7.2 6.4-8.2 GM/DL Albumin 4.0 3.2-4.5 GM/DL Lipase 33 8-78 U/L Serum Alcohol < 10 <10 MG/DL My Orders Orders - JAYDA GRAJEDA MD Cbc With Automated Diff (02/18/23 17:05) Magnesium (02/18/23 17:05) Chest 1 View Ap/Pa Only (02/18/23 17:05) Ekg Tracing (02/18/23 17:05) Comprehensive Metabolic Panel (02/18/23 17:05) Protime With Inr (02/18/23 17:05) Partial Thromboplastin Time (02/18/23 17:05) O2 (02/18/23 17:05) Monitor-Rhythm Ecg Trace Only (02/18/23 17:05) Aspirin Chewable Tablet (Baby Aspirin Ch (02/18/23 17:15) Ed Iv/Invasive Line Start (02/18/23 17:05) Lipase (02/18/23 17:05) Troponin I Fs (02/18/23 17:05) Probnp Fs (02/18/23 17:05) Lidocaine 2% Viscous 15 Ml (Xylocaine Vi (02/18/23 17:15) Famotidine Tablet (Pepcid Tablet) (02/18/23 17:05) Antacid Suspension (Mylanta Suspension (02/18/23 17:15) Ct Head Wo-R/O Stroke (02/18/23 17:06) Alcohol (02/18/23 17:11) Troponin I Fs (02/18/23 19:00) Clopidogrel Tablet (Plavix Tablet) (02/18/23 19:45) Medications Given in ED Current Medications Medications Dose Ordered Sig/Dereje Route Start Time Stop Time Status Last Admin Dose Admin Al Hydrox/Mg Hydrox/Simethicone 30 ml ONCE ONCE PO 02/18/23 17:15 02/18/23 17:16 DC 02/18/23 18:15 30 ML Aspirin 324 mg ONCE ONCE PO 02/18/23 17:15 02/18/23 17:16 DC 02/18/23 18:15 324 MG Clopidogrel Bisulfate 300 mg ONCE ONCE PO 02/18/23 19:45 02/18/23 19:46 DC 02/18/23 19:52 300 MG Lidocaine HCl 15 ml ONCE ONCE PO 02/18/23 17:15 02/18/23 17:16 DC 02/18/23 18:15 15 ML Vital Signs/I&O 02/18/23 02/18/23 17:13 19:48 Temp 36.5 Pulse 64 58 Resp 14 20 B/P (MAP) 154/90 (111) 158/81 Pulse Ox 98 97 O2 Delivery Room Air Room Air Progress Progress Note : Progress Note 63-year-old male coming in due to epigastric burning, and his children were concerned that he was slightly slurring his words. The slurring of the words they noticed was around 4 PM, but his last known normal was prior to noon. More than 5 hours passed between his last known normal and arrival to the ER. His NIH for me was 0, and I am not noting any clinical slurring of his words. Only about half of his family members agree that he is slurring, the other half think that he sounds normal. Glucose is normal. An IV was placed and basic labs were obtained and were significant for normal white blood cell count, normal hemoglobin, normal creatinine, very slightly elevated AST and ALT which the patient states is a known issue that is being followed, negative troponin x2, normal BNP, negative alcohol level. CT head ordered and interpreted by me showing no obvious bleed. Radiology interpretation shows it was negative for acute changes including no obvious signs of acute stroke. Chest x-ray with no obvious acute abnormalities. The patient was given a GI cocktail with full resolution of his symptoms. EKG ordered and interpreted by me showing no acute ischemic changes. Given the unchanged EKG, negative troponin x2, symptoms completely improved with a GI cocktail and it was a burning quality from the start, very unlikely to be ACS. I contacted the stroke neurologist at , Dr. Gaming, and he agrees clinically that this does not sound like a stroke. He does not recommend an MRI or further evaluation regarding it at this time. The patient is supposed to be on daily aspirin and Plavix. He stopped taking it because of previous stomach issues, although this did not help. I went ahead and loaded him with aspirin and Plavix here, so that he can restart it at home. I believe he is otherwise stable for discharge with outpatient follow-up. He was sent home with strict return precautions. At the time of discharge, he is completely back to baseline per family. I also counseled the patient extensively on stopping tobacco use. Initial ECG Impression Date: Feb 18, 2023 Initial ECG Impression Time: 17:03 Initial ECG Rate: 64 Initial ECG Rhythm: Normal Sinus Comment Wide QRS with a right bundle branch block, no STEMI, no significant ST or T wave abnormality, appears similar to prior EKG Diagnostic Imaging Diagonstic Imaging: Xray (chest), CT (head) Comments [facility] [place], [place] NAME: PRAKASH DAVIS J MED REC#: [id number] PT STATUS: REG ER : 1960 PHYSICIAN: JAYDA GRAJEDA MD ADMIT DATE: 02/18/23/ER FS Signed Date of Exam:02/18/23 CT HEAD WO-R/O STROKE PROCEDURE: CT head wo r/o stroke. TECHNIQUE: Multiple contiguous axial images were obtained through the brain without the use of intravenous contrast. Auto Exposure Controls were utilized during the CT exam to meet ALARA standards for radiation dose reduction. INDICATION: Slurred speech. FINDINGS: There is prominence of the ventricles and sulci. There is no hydrocephalus or cerebral edema. There is no midline shift or mass-effect. There is no intracranial mass, hemorrhage or extra-axial fluid collection. There is some diffuse decreased attenuation of the periventricular white matter which is nonspecific. The visualized paranasal sinuses and mastoid air cells are clear. There is no regional area of decreased attenuation appreciated to suggest an acute CVA. IMPRESSION: 1. No acute intracranial process. 2. Age-appropriate atrophy. 3. Decreased attenuation of the periventricular white matter which is nonspecific, however, likely reflects senescent change and/or chronic small vessel ischemic disease. Dictated by: Dictated on workstation # [id number] Dict: 02/18/231723 Trans: 02/18/231733 [facility] [id number] Interpreted by: JB STEEL MD Electronically signed by: JB STEEL MD 02/18/231733 NAME: PRAKASH DAVIS [facility] REC#: [id number] PT STATUS: REG ER : 1960 PHYSICIAN: JAYDA GRAJEDA MD ADMIT DATE: 02/18/23/ER FS Draft Date of Exam:02/18/23 CHEST 1 VIEW AP/PA ONLY INDICATION: Chest pain. COMPARISON: Prior examination from 12/19/2020. FINDINGS: The heart size is normal. There has been a previous median sternotomy. Lungs are clear. There is no pleural effusion or pneumothorax. The mediastinum is unremarkable. IMPRESSION: No acute cardiopulmonary abnormality. Dictated on workstation # [id number] Dict: 02/18/231750 Trans: 02/18/231755 [facility] [id number] Interpreted by: JB STEEL MD Electronically signed by: Departure Impression Primary Impression: Epigastric burning sensation Additional Impressions: CAD (coronary artery disease) Qualified Codes: I25.810 - Atherosclerosis of coronary artery bypass graft(s) without angina pectoris Hx of CABG Disposition: HOME, SELF-CARE Condition: Improved Departure-Patient Inst. Decision time for Depature: 19:50 Referrals: JAYCOB MIDDLTEON MD (PCP) Primary Care Physician Patient Instructions: Dyspepsia (DC) Add. Discharge Instructions: Please continue to take your Plavix, aspirin, and regular medications. Please continue the follow-up with the GI specialist that you mentioned as well as your industrial/organizational psychologist as scheduled. There are no signs of active heart attack today which is reassuring. No signs of active stroke as well, but things can change. If you are unable to speak, have weakness or numbness on one side of her body, or worst headache of her life we would of course want you to come back to the ER. Work/School Note: Family Work Note Patient Received Medical Care In the Emergency Department On: Feb 18, 2023 Patient Will Be Able to Return to Work/School On: Feb 19, 2023 JAYDA GRAJEDA MD Feb 18, 2023 17:11
[2023-02-18] MEDS ORDERED: LIDOCAINE 2% VISCOUS 15 ML UDC PO ONE (17:15)
[2023-02-18] MEDS ORDERED: ANTACID SUSP 30 ML UDC (MYLANTA) PO ONE (17:15)
[2023-02-18] MEDS ORDERED: ASPIRIN 81 MG CHEW (CHILDREN'S ASA) PO ONE (17:15)
[2023-02-18 17:21] LABS: INR 1.1 (0.8-1.4); PROTHROMBIN TIME PATIENT 14.2 SEC (12.2-14.7)
--- NOTE | 2023-02-18 17:30 | Diagnostic Imaging Report ---
PROCEDURE: CT head wo r/o stroke. TECHNIQUE: Multiple contiguous axial images were obtained through the brain without the use of intravenous contrast. Auto Exposure Controls were utilized during the CT exam to meet ALARA standards for radiation dose reduction. INDICATION: Slurred speech. FINDINGS: There is prominence of the ventricles and sulci. There is no hydrocephalus or cerebral edema. There is no midline shift or mass-effect. There is no intracranial mass, hemorrhage or extra-axial fluid collection. There is some diffuse decreased attenuation of the periventricular white matter which is nonspecific. The visualized paranasal sinuses and mastoid air cells are clear. There is no regional area of decreased attenuation appreciated to suggest an acute CVA. IMPRESSION: 1. No acute intracranial process. 2. Age-appropriate atrophy. 3. Decreased attenuation of the periventricular white matter which is nonspecific, however, likely reflects senescent change and/or chronic small vessel ischemic disease. Dictated by: Dictated on workstation # [id number]
[2023-02-18 17:34] LABS: BUN/CREATININE RATIO 8; CALCIUM 9.4 MG/DL (8.5-10.1); CARBON DIOXIDE 20 MMOL/L (21-32); CHLORIDE 101 MMOL/L (98-107); CREATININE SERUM 0.66 MG/DL (0.60-1.30); GFR ESTIMATED 104; GLUCOSE 89 MG/DL (70-105); MAGNESIUM 1.9 MG/DL (1.6-2.4); POTASSIUM 3.7 MMOL/L (3.6-5.0); SODIUM 134 MMOL/L (135-145)
[2023-02-18 17:35] LABS: ALANINE AMINOTRANSFERASE 64 U/L (0-55); ALKALINE PHOSPHATASE 81 U/L (40-136); BILIRUBIN,TOTAL 0.4 MG/DL (0.1-1.0); LIPASE 33 U/L (8-78); TOTAL PROTEIN 7.2 GM/DL (6.4-8.2)
--- NOTE | 2023-02-18 17:56 | Diagnostic Imaging Report ---
INDICATION: Chest pain. COMPARISON: Prior examination from 12/19/2020. FINDINGS: The heart size is normal. There has been a previous median sternotomy. Lungs are clear. There is no pleural effusion or pneumothorax. The mediastinum is unremarkable. IMPRESSION: No acute cardiopulmonary abnormality. Dictated by: Dictated on workstation # [id number]
[2023-02-18] MEDS ORDERED: CLOPIDOGREL 300 MG (PLAVIX) TABLET PO ONE (19:45)
[2023-02-18 19:48] VITALS: BP 158/81
== END 2023-02-18 19:48 | disposition home or self-care (01) ==
LOC: ER FS 17:01 → EDUNIT# 17:01 → ER FS 19:48
DX: R10.13 Epigastric pain (principal); I25.810 Atherosclerosis of coronary artery bypass graft(s) without angina pectoris; I45.10 Unspecified right bundle-branch block; I10 Essential (primary) hypertension; R47.81 Slurred speech; Z95.1 Presence of aortocoronary bypass graft
CPT/HCPCS: 36415; 70450; 71045; 80053; 80320; 83690; 83735; 83880; 84484; 85025; 85610; 85730; 93005; 93041

== ENCOUNTER 2023-07-06 15:35 | Emergency (ER) | payer MEDICARE, MEDICAID ==
[~2023-07-06] VITALS: Ht 172.7 cm; Wt 82.6 kg
[~2023-07-06 15:35] MED LIST changes: -DICL100G13; +DICL100G60; +SUCR1TAB PO
[2023-07-06 15:45] VITALS: BP 109/69
--- NOTE | 2023-07-06 15:48 | ED General ---
General Chief Complaint: General Problems/Pain Stated Complaint: GEN WEAKNESS; DIZZINESS History of Present Illness Date Seen by Provider: Jul 06, 2023 Time Seen by Provider: 15:40 Initial Comments 63 yr M with PMH of CAD with open heart surgery in 2020, is here with c/o generalized weakness and tiredness since yesterday. Pt has not been eating muc, eats about 1 meal a day, and has not had any water to drink today. Pt does not normally drink any water and only drinks soda. Denies chest pain, SOB, cough, recent illness, headache, dizziness, abdominal pain, diarrhea, headache, sensory loss. No known sick contacts. Allergies and Home Medications Allergies Coded Allergies: No Known Drug Allergies (Unverified , 05/22/20) Patient Home Medication List Home Medication List Reviewed: Yes Alprazolam (Alprazolam) 1 Mg Tablet, 1 MG PO BID PRN for ANXIETY, (Reported) Entered as Reported by: CASSIE BURNETTE on 05/22/20 1637 Aspirin (Aspirin) 81 Mg Tab.chew, 81 MG PO DAILY Prescribed by: MARIELLA LOPEZ on 09/16/20 1032 Atorvastatin Calcium (Lipitor) 40 Mg Tablet, 40 MG PO HS Prescribed by: MARIELLA LOPEZ on 09/16/20 1032 Ciprofloxacin HCl (Ciprofloxacin HCl) 500 Mg Tablet, 500 MG PO BID Prescribed by: MANDY TEE on 03/14/21 1413 Clopidogrel Bisulfate (Clopidogrel) 75 Mg Tablet, 75 MG PO DAILY Prescribed by: MARIELLA LOPEZ on 09/16/20 1032 Cyclobenzaprine HCl (Cyclobenzaprine HCl) 10 Mg Tablet, 10 MG PO TID Prescribed by: RAFAEL JOSHI on 02/09/22 0953 Dicyclomine HCl (Dicyclomine HCl) 20 Mg Tablet, 20 MG PO QID PRN for Abdominal Pain/Nausea Prescribed by: MANDY TEE on 03/14/21 1413 Lidocaine (Recticare) 15 Gm Cream..g., 0.25 GM TP 5XD PRN for HEMMORRHOID DISCOMFORT Prescribed by: MANYD TEE on 03/14/21 1413 Loperamide HCl (Imodium A-D) 2 Mg Tablet, 2 MG PO BID PRN Prescribed by: NEELA SANTIZO on 04/03/21 1217 Metoprolol Succinate (Metoprolol Succinate) 25 Mg Tab.er.24h, 25 MG PO DAILY Prescribed by: MARIELLA LOPEZ on 09/16/20 1032 Metronidazole (Metronidazole) 500 Mg Tablet, 500 MG PO BID Prescribed by: MANDY TEE on 03/14/21 1413 Omeprazole (Omeprazole) 40 Mg Capsule.dr, 40 MG PO DAILY PRN for HEARTBURN, (Reported) Entered as Reported by: ЮЛИЯ COELLO on 09/15/20 1054 Oxycodone HCl/Acetaminophen (Oxycodon-Acetaminophen 7.5-325) 1 Each Tablet, 1 EA PO TID PRN for PAIN-MODERATE (5-7), (Reported) Entered as Reported by: ЮЛИЯ COELLO on 09/15/20 1054 Sucralfate (Sucralfate) 1 Gram Tablet, 1 GM PO ACHS Prescribed by: MANDY TEE on 05/29/23 0103 Zolpidem Tartrate (Ambien) 10 Mg Tablet, 10 MG PO HS PRN for SLEEP, (Reported) Entered as Reported by: ЮЛИЯ COELLO on 09/15/20 1054 Review of Systems Review of Systems Constitutional: see HPI, malaise EENTM: no symptoms reported Respiratory: no symptoms reported Cardiovascular: no symptoms reported Gastrointestinal: no symptoms reported Genitourinary: no symptoms reported Musculoskeletal: no symptoms reported Skin: no symptoms reported Psychiatric/Neurological: No Symptoms Reported Hematologic/Lymphatic: No Symptoms Reported Immunological/Allergic: no symptoms reported Past Septdai-Okaeoi-Lpdpfl Hx Immunizations Up To Date Tetanus Booster (TDap): Unknown First/Initial COVID19 Vaccinat: January, Second COVID19 Vaccination Jose Enrique: February, Third COVID19 Vaccination Date: January, Past Medical History Surgery/Hospitalization HX: Quadruple CABG, Coronary stents x 19, GB, IBS-chronic abd issues Surgeries: Yes Coronary Stent, Open Heart Surgery Cardiac: Yes (X13 STENTS) Coronary Artery Disease, Heart Attack, High Cholesterol, Hypertension Genitourinary: No Gastrointestinal: No Endocrine: No HEENT: No Cancer: No Psychosocial: No Physical Exam Vital Signs Vital Signs - First Documented 07/06/23 15:45 Temp 36.4 Pulse 64 Resp 15 B/P (MAP) 109/69 (82) O2 Delivery Room Air Capillary Refill : Height, Weight, BMI Height: '" Weight: lbs. oz. kg; 23.00 BMI Method: General Appearance: No Apparent Distress, Other (Lethargic) HEENT: PERRL/EOMI, Normal ENT Inspection Neck: Full Range of Motion, Normal Inspection, Non Tender, Supple Respiratory: Lungs Clear, Normal Breath Sounds, No Accessory Muscle Use Cardiovascular: Regular Rate, Rhythm, No Edema Gastrointestinal: Normal Bowel Sounds, Non Tender, Soft Back: No CVA Tenderness, No Vertebral Tenderness Extremity: Normal Range of Motion Neurologic/Psychiatric: Alert, Oriented x3, No Motor/Sensory Deficits, Normal Mood/Affect Skin: Normal Color, Other (Mild tenting of skin) Focused Exam Lactate Level 07/06/23 15:45: Lactic Acid Level 1.63 Lactic Acid Level Laboratory Tests Test 07/06/23 15:45 Lactic Acid Level 1.63 MMOL/L (0.50-2.00) Progress/Results/Core Measures Suspected Sepsis SIRS Temperature: Pulse: Respiratory Rate: Laboratory Tests 07/06/23 15:45: White Blood Count 9.0 Blood Pressure / Mean: 07/06/23 15:45: Lactic Acid Level 1.63 Laboratory Tests 07/06/23 15:45: Creatinine 0.78, INR Comment 1.0, Platelet Count 202, Total Bilirubin 0.3 Results/Orders Lab Results Laboratory Tests Test 07/06/23 15:45 Range/Units White Blood Count 9.0 4.3-11.0 10^3/uL Red Blood Count 4.29 L 4.30-5.52 10^6/uL Hemoglobin 13.5 13.3-17.7 g/dL Hematocrit 40 40-54 % Mean Corpuscular Volume 94 80-99 fL Mean Corpuscular Hemoglobin 32 25-34 pg Mean Corpuscular Hemoglobin Concent 34 32-36 g/dL Red Cell Distribution Width 13.8 10.0-14.5 % Platelet Count 202 130-400 10^3/uL Mean Platelet Volume 9.4 9.0-12.2 fL Immature Granulocyte % (Auto) 0 % Neutrophils (%) (Auto) 62 42-75 % Lymphocytes (%) (Auto) 29 12-44 % Monocytes (%) (Auto) 6 0-12 % Eosinophils (%) (Auto) 3 0-10 % Basophils (%) (Auto) 1 0-10 % Neutrophils # (Auto) 5.5 1.8-7.8 10^3/uL Lymphocytes # (Auto) 2.6 1.0-4.0 10^3/uL Monocytes # (Auto) 0.6 0.0-1.0 10^3/uL Eosinophils # (Auto) 0.2 0.0-0.3 10^3/uL Basophils # (Auto) 0.1 0.0-0.1 10^3/uL Immature Granulocyte # (Auto) 0.0 0.0-0.1 10^3/uL Prothrombin Time 13.5 12.2-14.7 SEC INR Comment 1.0 0.8-1.4 Activated Partial Thromboplast Time 21 L 24-35 SEC Urine Color YELLOW Urine Clarity CLEAR Urine pH 7.0 5-9 Urine Specific [place] 1.010 L 1.016-1.022 Urine Protein NEGATIVE NEGATIVE Urine Glucose (UA) NEGATIVE NEGATIVE Urine Ketones NEGATIVE NEGATIVE Urine Nitrite NEGATIVE NEGATIVE Urine Bilirubin NEGATIVE NEGATIVE Urine Urobilinogen 2.0 < = 1.0 MG/DL Urine Leukocyte Esterase NEGATIVE NEGATIVE Urine RBC (Auto) NEGATIVE NEGATIVE Urine RBC NONE /HPF Urine WBC NONE /HPF Urine Crystals NONE /LPF Urine Bacteria NEGATIVE /HPF Urine Casts NONE /LPF Urine Mucus SMALL H /LPF Urine Culture Indicated NO Sodium Level 136 135-145 MMOL/L Potassium Level 4.1 3.6-5.0 MMOL/L Chloride Level 103 98-107 MMOL/L Carbon Dioxide Level 23 21-32 MMOL/L Anion Gap 10 5-14 MMOL/L Blood Urea Nitrogen 7 7-18 MG/DL Creatinine 0.78 0.60-1.30 MG/DL Estimat Glomerular Filtration Rate 99 BUN/Creatinine Ratio 9 Glucose Level 140 H 70-105 MG/DL Lactic Acid Level 1.63 0.50-2.00 MMOL/L Calcium Level 9.0 8.5-10.1 MG/DL Corrected Calcium 9.4 8.5-10.1 MG/DL Magnesium Level 2.1 1.6-2.4 MG/DL Total Bilirubin 0.3 0.1-1.0 MG/DL Aspartate Amino Transf (AST/SGOT) 23 5-34 U/L Alanine Aminotransferase (ALT/SGPT) 21 0-55 U/L Alkaline Phosphatase 97 40-136 U/L Troponin I < 0.30 <0.30 NG/ML Pro-B-Type Natriuretic Peptide 229.2 H <125.0 PG/ML Total Protein 7.3 6.4-8.2 GM/DL Albumin 3.5 3.2-4.5 GM/DL Urine Opiates Screen NEGATIVE NEGATIVE Urine Oxycodone Screen NEGATIVE NEGATIVE Urine Methadone Screen NEGATIVE NEGATIVE Urine Barbiturates Screen NEGATIVE NEGATIVE Ur Tricyclic Antidepressants Screen NEGATIVE NEGATIVE Urine Phencyclidine Screen NEGATIVE NEGATIVE Urine Amphetamines Screen NEGATIVE NEGATIVE Urine Methamphetamines Screen NEGATIVE NEGATIVE Urine Benzodiazepines Screen POSITIVE H NEGATIVE Urine Cocaine Screen NEGATIVE NEGATIVE Urine Cannabinoids Screen NEGATIVE NEGATIVE Influenza Type A (RT-PCR) Not Detected Not Detecte Influenza Type B (RT-PCR) Not Detected Not Detecte SARS-CoV-2 RNA (RT-PCR) Not Detected Not Detecte My Orders Orders - BJ IYER MD Chest 1 View Ap/Pa Only (07/06/23 15:48) Cbc And Automated Diff (07/06/23 15:49) Comprehensive Metabolic Panel (07/06/23 15:49) Drug Screen Stat (Urine) (07/06/23 15:49) Magnesium (07/06/23 15:49) Protime With Inr (07/06/23 15:49) Partial Thromboplastin Time (07/06/23 15:49) Ua Culture If Indicated (07/06/23 15:49) Blood Culture (07/06/23 15:49) Influenza A And B By Pcr (07/06/23 15:49) Probnp Fs (07/06/23 15:49) Troponin I Fs (07/06/23 15:49) Lactic Acid Analyzer (07/06/23 15:49) Covid 19 Inhouse Test (07/06/23 15:49) Ct Head Wo (07/06/23 16:53) Vital Signs/I&O 07/06/23 07/06/23 15:45 15:45 Temp 36.4 Pulse 64 Resp 15 B/P (MAP) 109/69 (82) O2 Delivery Room Air Room Air Capillary Refill : Progress Note : Progress Note 1. GENERALIZED WEAKNESS/ DEHYDRATION: - CT HEAD: no acute findings - CXR: no acute findings - UA: negative for infection - UDS: positive for benzos - CBC/CMP: normal, Normal WBC - Troponin: undetectable - Juice given in ER - Pt not eating or drinking much and only drinks soda. -Adequate hydration 8 glasses of water a day advised. Stop soda intake - Adequate nutrition, all meals advised. - Follow up with PCP within 7 days. -The patient was seen in the ED, and treated appropriately to presentation at a specific point in time. Patient is informed that there is a possibility that disease and illness can evolve and change in acuity rapidly or slowly after patient is discharged from the ER. Precautionary advice given to the patient for immediate return to ER if symptoms worsen or do not resolve, and to seek emergency care sooner rather than later. Pt also advised on the importance of PCP follow up and compliance with management and follow up plan with PCP and/or specialist, as this is part of the management plan. Pt verbally expressed understanding. Diagnostic Imaging Diagonstic Imaging: Xray, CT Plain Films/CT/US/NM/MRI: chest, head Comments [facility] [place], [place] NAME: PRAKASH DAVIS [facility] REC#: [id number] PT STATUS: REG ER : 1960 PHYSICIAN: BJ IYER MD ADMIT DATE: 07/06/23/ER FS Signed Date of Exam:07/06/23 CHEST 1 VIEW AP/PA ONLY INDICATION: Right-sided chest pain. Portable chest 4:20 PM There are postoperative changes from median sternotomy. Heart size and pulmonary vascularity are normal. Lungs are clear. There are no effusions or pneumothoraces. IMPRESSION: No acute abnormalities in the chest. Dictated by: Dictated on workstation # [id number] Dict: 07/06/23 1626 Trans: 07/06/231713 [facility] [id number] Interpreted by: FIDELINA DYSON MD Electronically signed by: FIDELINA DYSON MD 07/06/234 [facility] [place], [place] NAME: PRAAKSH DAVIS [facility] REC#: [id number] PT STATUS: REG ER : 1960 PHYSICIAN: BJ IYER MD ADMIT DATE: 07/06/23/ER FS Signed Date of Exam:07/06/23 CT HEAD WO EXAMINATION: CT head without contrast. TECHNIQUE: Multiple contiguous axial images were obtained through the brain without the use of intravenous contrast. All CT scans use one or more of the following dose optimizing techniques: automated exposure control, MA and/or KvP adjustment based on patient size and exam type or iterative reconstruction. HISTORY: generalized weakness COMPARISON: None available. FINDINGS: Mild diffuse cerebral volume loss with proportional enlargement of the ventricles and sulci. Mild hypodensities throughout the supratentorial white matter of both cerebral hemispheres. No acute intracranial hemorrhage or abnormal extra-axial fluid collections are present. Calcification of the intracranial ICAs. No hyperdense vessel. The calvarium is intact. The mastoid air cells are clear. The visualized paranasal sinuses are clear. The orbits are normal. IMPRESSION: 1. No acute intracranial abnormality. 2. Mild chronic microangiopathy and volume loss. Dictated by: Dictated on workstation # [id number] Dict: 07/06/231713 Trans: 07/06/231719 [facility] [id number] Interpreted by: DONAL DYSON DO Electronically signed by: DONAL DYSON DO 07/06/23 1720 Departure Impression Primary Impression: Generalized weakness Additional Impression: Dehydration Disposition: 01 HOME, SELF-CARE Condition: Stable Departure-Patient Inst. Referrals: JAYCOB MIDDLETON MD (PCP) Primary Care Physician Patient Instructions: Dehydration, Adult (DC), Generalized Weakness (DC) Add. Discharge Instructions: -Adequate hydration 8 glasses of water a day advised. Stop soda intake - Adequate nutrition, all meals advised. - Follow up with PCP within 7 days. All discharge instructions reviewed with patient and/or family. Voiced understanding. BJ IYER MD Jul 06, 2023 15:48
[2023-07-06 15:58] LABS: BASOPHILS # (AUTO) 0.1 10^3/uL (0.0-0.1); BASOPHILS % (AUTO) 1 % (0-10); EOSINOPHILS # (AUTO) 0.2 10^3/uL (0.0-0.3); EOSINOPHILS % (AUTO) 3 % (0-10); HEMATOCRIT 40 % (40-54); HEMOGLOBIN 13.5 g/dL (13.3-17.7); LYMPHOCYTES # (AUTO) 2.6 10^3/uL (1.0-4.0); LYMPHOCYTES % (AUTO) 29 % (12-44); MEAN CORPUSCULAR HEMOGLOBIN 32 pg (25-34); MEAN CORPUSCULAR HGB CONC 34 g/dL (32-36); MEAN CORPUSCULAR VOLUME 94 fL (80-99); MEAN PLATELET VOLUME 9.4 fL (9.0-12.2); MONOCYTES # (AUTO) 0.6 10^3/uL (0.0-1.0); MONOCYTES % (AUTO) 6 % (0-12); NEUTROPHILS # (AUTO) 5.5 10^3/uL (1.8-7.8); NEUTROPHILS % (AUTO) 62 % (42-75); PLATELET COUNT 202 10^3/uL (130-400)
[2023-07-06 16:11] LABS: BILIRUBIN,TOTAL 0.3 MG/DL (0.1-1.0); CARBON DIOXIDE 23 MMOL/L (21-32); CHLORIDE 103 MMOL/L (98-107); GLUCOSE 140 MG/DL (70-105); MAGNESIUM 2.1 MG/DL (1.6-2.4); POTASSIUM 4.1 MMOL/L (3.6-5.0); SODIUM 136 MMOL/L (135-145)
[2023-07-06 16:12] LABS: TOTAL PROTEIN 7.3 GM/DL (6.4-8.2)
[2023-07-06 16:14] LABS: PROTHROMBIN TIME PATIENT 13.5 SEC (12.2-14.7)
[2023-07-06 16:21] LABS: ALANINE AMINOTRANSFERASE 21 U/L (0-55); ALBUMIN 3.5 GM/DL (3.2-4.5); ALKALINE PHOSPHATASE 97 U/L (40-136); BUN/CREATININE RATIO 9; CREATININE SERUM 0.78 MG/DL (0.60-1.30); GFR ESTIMATED 99
--- NOTE | 2023-07-06 16:28 | Diagnostic Imaging Report ---
INDICATION: Right-sided chest pain. Portable chest 4:20 PM There are postoperative changes from median sternotomy. Heart size and pulmonary vascularity are normal. Lungs are clear. There are no effusions or pneumothoraces. IMPRESSION: No acute abnormalities in the chest. Dictated by: Dictated on workstation # [id number]
[2023-07-06 16:35] LABS: BILIRUBIN,URINE NEGATIVE (NEGATIVE); CLARITY,URINE CLEAR; COLOR,URINE YELLOW; GLUCOSE, URINE (UA) NEGATIVE (NEGATIVE); KETONES,URINE NEGATIVE (NEGATIVE); LEUKOCYTE ESTERASE ,URINE NEGATIVE (NEGATIVE); NITRITE,URINE NEGATIVE (NEGATIVE); PROTEIN,URINE NEGATIVE (NEGATIVE)
[2023-07-06 16:44] LABS: BACTERIA,URINE NEGATIVE /HPF
[2023-07-06 16:49] LABS: AMPHETAMINE SCREEN, URINE NEGATIVE (NEGATIVE); BARBITURATE SCREEN URINE NEGATIVE (NEGATIVE); CANNABINOID SCREEN, URINE NEGATIVE (NEGATIVE); COCAINE SCREEN URINE NEGATIVE (NEGATIVE); METHADONE STAT NEGATIVE (NEGATIVE); OPIATE SCREEN URINE NEGATIVE (NEGATIVE); OXYCODONE STAT NEGATIVE (NEGATIVE); TRICYCLIC ANTIDEPRESSANTS SCRE NEGATIVE (NEGATIVE)
--- NOTE | 2023-07-06 17:16 | Diagnostic Imaging Report ---
EXAMINATION: CT head without contrast. TECHNIQUE: Multiple contiguous axial images were obtained through the brain without the use of intravenous contrast. All CT scans use one or more of the following dose optimizing techniques: automated exposure control, MA and/or KvP adjustment based on patient size and exam type or iterative reconstruction. HISTORY: generalized weakness COMPARISON: None available. FINDINGS: Mild diffuse cerebral volume loss with proportional enlargement of the ventricles and sulci. Mild hypodensities throughout the supratentorial white matter of both cerebral hemispheres. No acute intracranial hemorrhage or abnormal extra-axial fluid collections are present. Calcification of the intracranial ICAs. No hyperdense vessel. The calvarium is intact. The mastoid air cells are clear. The visualized paranasal sinuses are clear. The orbits are normal. IMPRESSION: 1. No acute intracranial abnormality. 2. Mild chronic microangiopathy and volume loss. Dictated by: Dictated on workstation # [id number]
== END 2023-07-06 18:43 | disposition home or self-care (01) ==
LOC: EDUNIT# 15:35 → ER FS 15:35
DX: E86.0 Dehydration (principal)
CPT/HCPCS: 36415; 70450; 71045; 80053; 80306; 81000; 83605; 83735; 83880; 84484; 85025; 85610; 85730; 87040; 87636